=== PATIENT | female | born 1935 | race Caucasian/White ===

== ENCOUNTER 2018-08-31 13:22 | Inpatient (IN) | payer MEDICARE, MEDICAID ==
[2018-08-31] MEDS ORDERED: Sodium Chloride 0.9% 1,000 ML IV STA (15:45)
--- NOTE | 2018-08-31 16:15 | ED PDOC ---
HPI: Dental Pain/Injury Time Seen by Provider: 08/31/18 13:52 Chief Complaint (Nursing): Dental Pain Chief Complaint (Provider): Jaw Pain and Swelling History Per: Patient History/Exam Limitations: no limitations Onset/Duration Of Symptoms: Days Current Symptoms Are (Timing): Still Present Quality: "Pain" Additional Complaint(s): 83 year old female with PMHx of diabetes and HTN presents to the ER for an evaluation of right lower jaw swelling and pain onset yesterday morning. Patient has a history of sialadenitis and feels she has similar symptoms now. She took Tylenol at 1pm without any relief. Patient denies any difficulty swallowing. PMD: Dr. Leggett Past Medical History Reviewed: Historical Data, Nursing Documentation, Vital Signs Vital Signs: Last Vital Signs Temp 100.1 F H 08/31/18 13:36 Pulse 112 H 08/31/18 13:36 Resp 16 08/31/18 13:36 BP 167/84 H 08/31/18 13:36 Pulse Ox 93 L 08/31/18 13:36 - Medical History PMH: Asthma, Diabetes (type II), HTN, Hypercholesterolemia (noncompliant w/meds) Denies: Chronic Kidney Disease - Surgical History Surgical History: Tonsillectomy - Family History Family History: States: Unknown Family Hx - Social History Current smoker - smoking cessation education provided: No Alcohol: None Drugs: Denies - Home Medications Home Medications: Ambulatory Orders Medication Instructions Recorded Albuterol HFA [Ventolin HFA 90 90 mcg INH PRN PRN 10/21/14 mcg/actuation (8 g)] MetFORMIN ER [Glucophage XR] 1,500 mg PO DAILY 03/05/16 Lisinopril [Zestril] 20 mg PO DAILY #0 tab 03/06/16 - Allergies Allergies/Adverse Reactions: Allergies Allergy/AdvReac Type Severity Reaction Status Date / Time codeine Allergy RASH Verified 01/29/16 13:45 Review of Systems ROS Statement: Except As Marked, All Systems Reviewed And Found Negative Constitutional: Negative for: Fever ENT: Positive for: Mouth Pain, Mouth Swelling. Negative for: Throat Swelling Respiratory: Negative for: Cough Physical Exam - Reviewed Nursing Documentation Reviewed: Yes Vital Signs Reviewed: Yes - Physical Exam Appears: Positive for: In Acute Distress Head Exam: Positive for: ATRAUMATIC, NORMAL INSPECTION, NORMOCEPHALIC Skin: Positive for: Normal Color, Warm, Dry. Negative for: Rash Eye Exam: Positive for: Normal appearance ENT: Positive for: Pharynx Is (clear), Other (no swelling, speaking full sentences). Negative for: Normal ENT Inspection (edema on right external jaws and right lower gingiva) Cardiovascular/Chest: Positive for: Regular Rate, Rhythm. Negative for: Murmur Respiratory: Positive for: Normal Breath Sounds. Negative for: Decreased Breath Sounds, Wheezing, Respiratory Distress Neurologic/Psych: Positive for: Alert, Oriented (x3). Negative for: Motor/Sensory Deficits - Laboratory Results Result Diagrams: 08/31/18 16:28 08/31/18 16:28 - ECG O2 Sat by Pulse Oximetry: 93 (RA) Pulse Ox Interpretation: Normal Medical Decision Making Medical Decision Making: Time: 153 Initial Plan: --VBG Shock --Neck Soft Tissue w/ Contrast CT --CMP --CBC w/ Differential --PTT --Prothrombin Time --Normal Saline 1000mls/hr --Blood culture --Glucose, Blood, POC --Reevaluation Accession No. : [id number] Patient Name / ID : FELA Ruiz / [id number] Exam Date : 08/31/2018 17:32:19 ( Approved ) Study Comment : Sex / Age : F / 83Y Creator : Sanchez Quinones MD Dictator : Sanchez Quinones MD Documentation Clerk : Supplier Quality Engineer : Sanchez Quinones MD Approver2 : Report Date : 08/31/2018 18:28:44 My Comment : Date of service: 08/31/2018 PROCEDURE: CT NECK WITH CONTRAST HISTORY: Edema R gingiva, h/o sialoadenitis, fever COMPARISON: 10/21/2014 TECHNIQUE: CT of the neck with intravenous contrast. Coronal and sagittal reformats generated. Intravenous contrast dose: 90 cc Omnipaque 300 Radiation dose: Total exam DLP = 316.47 mGy-cm. This CT exam was performed using one or more of the following dose reduction techniques: Automated exposure control, adjustment of the mA and/or kV according to patient size, and/or use of iterative reconstruction technique. FINDINGS: NASOPHARYNX: Unremarkable. SUPRAHYOID NECK: The dilated duct, submandibular gland on the right are inseparable from the floor of the mouth, displacing intrinsic tongue musculature to the left. The mass is inseparable from the floor of the mouth. This orpharyngeal masseffacing the vallecular, piriform sinus region. INFRAHYOID NECK: Unremarkable larynx, hypopharynx, and supraglottic space. Vocal cords intact. MASS: None. GLANDS: 5 mm stone identified in [place]'s duct. An additional, smaller more proximal stone measuring 3 mm identified. Duct is dilated in its entirety, maximum diameter 8 mm. Associated with the dilated duct or multiple stones within the markedly enlarged right parotid gland. The right submandibular gland measures 4.2 x 3.1 x 4.9 cm. LYMPH NODES: Stable lymphadenopathy on the right adjacent to the mandible. CERVICAL SPINE: No fracture or focal lesion. VASCULAR STRUCTURES: Unremarkable. OTHER FINDINGS: None. IMPRESSION: Two stones identified in Sarah's duct producing distal dilatation, the entire duct is dilated. Associated multiple calculi identified within markedly enlarged right submandibular gland. Mass in the floor of the mouth on the right impressing upon the oropharynx, vallecula and piriform sinus. This mass measures 2.4 x 2.6 cm. Submandibular lymphadenopathy stable compared prior study 10/21/2014. 18:[address] Nielson, recommends Zosyn and Decadron 10 mg, will consult. Scribe Attestation: Documented by Sobeida Domingo, acting as a scribe for Kassidy Novoa MD Provider Scribe Attestation: All medical record entries made by the Scribe were at my direction and personally dictated by me. I have reviewed the chart and agree that the record accurately reflects my personal performance of the history, physical exam, medical decision making, and the department course for this patient. I have also personally directed, reviewed, and agree with the discharge instructions and disposition. Disposition - Clinical Impression Clinical Impression: Sialoadenitis, Mass of floor of mouth - Patient ED Disposition Is Patient to be Admitted: Yes - Disposition Disposition Time: 19:10 Condition: STABLE Forms: Dealised (Luxembourgish) - Pt Status Changed To: Hospital Disposition Of: Observation - POA Present On Arrival: None
[2018-08-31 16:50] LABS: BLOOD UREA NITROGEN 7 mg/dl (7-17); CALCIUM 9.4 mg/dL (8.4-10.2); GFR NON-AFRICAN AMERICAN > 60
[2018-08-31 16:56] LABS: VENOUS BLOOD GAS BASE EXCESS 7.5 mmol/L (0.0-2.0); VENOUS BLOOD GAS PCO2 47 mmHg (40-60); VENOUS BLOOD GAS PO2 34 mm/Hg (30-55); VENOUS BLOOD PH 7.45 (7.32-7.43)
[2018-08-31 17:01] LABS: BASO % 0.3 % (0.0-2.0); EOS % 0.4 % (0.0-4.0); HEMOGLOBIN 13.9 g/dL (12.0-16.0); LYMPH # 0.8 K/uL (1.0-4.3); LYMPH % 8.3 % (20.0-40.0); MEAN CELL VOLUME 85.9 fl (81.0-99.0); MEAN CORPUSCULAR HEMOGLOBIN 27.4 pg (27.0-31.0); MEAN CORPUSCULAR HGB CONC 31.9 g/dL (33.0-37.0); MEAN PLATELET VOLUME 8.7 fl (7.2-11.7); MONO # 0.4 K/uL (0.0-0.8); MONO % 4.5 % (0.0-10.0); NEUT # 8.5 K/uL (1.8-7.0); NEUT % 86.5 % (50.0-75.0); NRBC % 0.1 % (0.0-0.0); PLATELET COUNT 227 K/uL (130-400); RBC 5.09 Mil/uL (3.80-5.20); RED CELL DISTRIBUTION WIDTH 15.1 % (11.5-14.5); WHITE BLOOD COUNT 9.8 K/uL (4.8-10.8)
[2018-08-31 17:11] LABS: ALBUMIN 4.2 g/dL (3.5-5.0)
[2018-08-31 17:12] LABS: ALB/GLOB RATIO 0.8 (1.0-2.1); ALT/SGPT 19 U/L (9-52); AST/SGOT 32 U/L (14-36)
[2018-08-31] MEDS ORDERED: Sodium Chloride 0.9% 50 ML IV ONE (17:25)
[2018-08-31] MEDS ORDERED: Iohexol 300 100 ML IJ ONE (17:25)
--- NOTE | 2018-08-31 18:32 | CT ---
Date of service: 08/31/2018 PROCEDURE: CT NECK WITH CONTRAST HISTORY: Edema R gingiva, h/o sialoadenitis, fever COMPARISON: 10/21/2014 TECHNIQUE: CT of the neck with intravenous contrast. Coronal and sagittal reformats generated. Intravenous contrast dose: 90 cc Omnipaque 300 Radiation dose: Total exam DLP = 316.47 mGy-cm. This CT exam was performed using one or more of the following dose reduction techniques: Automated exposure control, adjustment of the mA and/or kV according to patient size, and/or use of iterative reconstruction technique. FINDINGS: NASOPHARYNX: Unremarkable. SUPRAHYOID NECK: The dilated duct, submandibular gland on the right are inseparable from the floor of the mouth, displacing intrinsic tongue musculature to the left. The mass is inseparable from the floor of the mouth. This orpharyngeal masseffacing the vallecular, piriform sinus region. INFRAHYOID NECK: Unremarkable larynx, hypopharynx, and supraglottic space. Vocal cords intact. MASS: None. GLANDS: 5 mm stone identified in [place]'s duct. An additional, smaller more proximal stone measuring 3 mm identified. Duct is dilated in its entirety, maximum diameter 8 mm. Associated with the dilated duct or multiple stones within the markedly enlarged right parotid gland. The right submandibular gland measures 4.2 x 3.1 x 4.9 cm. LYMPH NODES: Stable lymphadenopathy on the right adjacent to the mandible. CERVICAL SPINE: No fracture or focal lesion. VASCULAR STRUCTURES: Unremarkable. OTHER FINDINGS: None. IMPRESSION: Two stones identified in Sarah's duct producing distal dilatation, the entire duct is dilated. Associated multiple calculi identified within markedly enlarged right submandibular gland. Mass in the floor of the mouth on the right impressing upon the oropharynx, vallecula and piriform sinus. This mass measures 2.4 x 2.6 cm. Submandibular lymphadenopathy stable compared prior study 10/21/2014.
[2018-08-31 18:42] LABS: INR 1.2; PROTHROMBIN TIME 13.3 Seconds (9.8-13.1)
[2018-08-31 18:45] LABS: PARTIAL THROMBOPLASTIN TIME 30.7 Seconds (25.6-37.1)
[2018-08-31 18:51] LABS: BANDS 1 % (0-2); EOSINOPHIL 1 % (0-7); LYMPHOCYTE 9 % (20-50); MONOCYTE 4 % (0-10); NEUTROPHIL 85 % (42-75); TOTAL CELLS COUNTED 100
[2018-08-31 18:52] LABS: ANISOCYTOSIS SLIGHT; PLATELET ESTIMATE NORMAL (NORMAL)
[2018-08-31] MEDS ORDERED: Piperacillin/Tazobact 4.5 GM in Sodium Chloride 0.9% 100 ML IVPB STA (18:52)
[2018-08-31] MEDS ORDERED: Dexamethasone 10 MG in Sodium Chloride 0.9% 50 ML IV STA (18:53)
[2018-08-31 18:54] LABS: OVALOCYTES SLIGHT
[2018-09-01 06:59] LABS: HEMOGLOBIN 11.9 g/dL (12.0-16.0); MEAN CELL VOLUME 84.2 fl (81.0-99.0); MEAN CORPUSCULAR HEMOGLOBIN 26.9 pg (27.0-31.0); MEAN CORPUSCULAR HGB CONC 31.9 g/dL (33.0-37.0); RBC 4.42 Mil/uL (3.80-5.20); RED CELL DISTRIBUTION WIDTH 15.1 % (11.5-14.5); WHITE BLOOD COUNT 11.1 K/uL (4.8-10.8)
[2018-09-01 07:30] LABS: ALB/GLOB RATIO 0.9 (1.0-2.1); ALBUMIN 3.7 g/dL (3.5-5.0); ALT/SGPT 11 U/L (9-52); AST/SGOT 19 U/L (14-36); BLOOD UREA NITROGEN 9 mg/dl (7-17); CALCIUM 8.7 mg/dL (8.4-10.2); GFR NON-AFRICAN AMERICAN > 60
[2018-09-01] MEDS: Cholecalciferol 400 Intl Units Tab PO SCH (08:22)
[2018-09-01] MEDS: Insulin Regular 100 units/ml SC SCH ×3 (08:22→21:33)
--- NOTE | 2018-09-01 08:44 | CARD ---
APPROVED REPORT Date of service: 08/31/2018 EKG Measurement Heart [id number] <Conclusion> Sinus tachycardia Possible Left atrial enlargement Nonspecific T wave abnormality Abnormal ECG
[2018-09-01] MEDS: Piperacillin/Tazobact 3.375 GM in Sodium Chloride 0.9% 100 ML IVPB SCH ×2 (10:00→17:11)
--- NOTE | 2018-09-01 10:35 | RAD ---
Date of service: 08/31/2018 HISTORY: Sialoadenitis COMPARISON: No prior. TECHNIQUE: Chest PA and lateral FINDINGS: LUNGS: No active pulmonary disease. PLEURA: No significant pleural effusion identified. No pneumothorax apparent. CARDIOVASCULAR: No aortic atherosclerotic calcification present. Normal cardiac size. No pulmonary vascular congestion. OSSEOUS STRUCTURES: No significant abnormalities. VISUALIZED UPPER ABDOMEN: Normal. OTHER FINDINGS: None. IMPRESSION: No active disease.
--- NOTE | 2018-09-01 19:24 | CON ---
DATE: 09/01/2018 REQUESTING PHYSICIAN: Lionel Jim M.D. REASON FOR CONSULTATION: Sialadenitis on the right. HISTORY: This is an 83-year-old female who presents to the emergency room with a 3-day history of right neck edema and pain. It is constant, moderate in intensity, with some dysphagia. No shortness of breath, no hoarseness. The dysphagia is [id number] in intensity on the right side. PAST MEDICAL HISTORY: As noted in the chart by me. MEDICATIONS: As noted in the chart by me. ALLERGIES: NOTED IN THE CHART BY ME. PHYSICAL EXAMINATION: HEENT: Head: Atraumatic and normocephalic. Face: Good facial movements bilaterally. External nose and ears: No masses. No lesions. No erythema. No edema. Internal nose: Deviated septum. No masses. No lesions. No erythema. No edema. Oral cavity and oropharynx: There is some firmness on the floor of mouth on the right with the submandibular duct being swollen with some pain in that area. Lips and gums: No masses. No lesions. No erythema. No edema. CONSTITUTIONAL: Well fed, well nourished. COMMUNICATION: Communicates well and appropriately. NECK: Supple. There is edema over the right submandibular gland with pain. Lymph nodes: No lymphadenopathy of the neck. Thyroid: No thyromegaly. No goiter. CAT scan was reviewed by me. It showed stones in the submandibular gland on the right as well as one in the distal end of the submandibular duct with edema of the submandibular gland. ASSESSMENT: 1. Sialadenitis. 2. Deviated septum. 3. Submandibular gland duct stones. PLAN: Continue IV antibiotics. Consider more steroids to take down the swelling. Once the swelling is down, recommend transfer to [facility] where the patient can have this submandibular gland removed. Miquel Nielson MD
--- NOTE | 2018-09-01 20:25 | CP.PCM.HP ---
History of Present Illness - History of Present Illness History of Present Illness: 83 year old female with PMHx of diabetes and HTN presented to the ER due to right lower jaw swelling and pain x 2 days. Patient was found to have Sialoadenitis and Mass of floor of mouth. ENT was consulted in ED. recommended zosyn and decadron. patient was seen and examined at bedside. states swelling continues to be present though improved. pain improved. no other complaints offered at this time. Present on Admission - Present on Admission Any Indicators Present on Admission: Yes History of Uncontrolled Diabetes: Yes Review of Systems - Review of Systems All systems: reviewed and no additional remarkable complaints except (mentioned above) Past Patient History - Infectious Disease Hx of Infectious Diseases: None - Past Medical History & Family History Past Medical History?: Yes - Past Social History Smoking Status: Never Smoked - CARDIAC Hx Cardiac Disorders: Yes Hx Hypertension: Yes - PULMONARY Hx Respiratory Disorders: Yes - NEUROLOGICAL Hx Neurological Disorder: No - HEENT Hx HEENT Problems: No - RENAL Hx Chronic Kidney Disease: No - ENDOCRINE/METABOLIC Hx Endocrine Disorders: Yes Hx Diabetes Mellitus Type 2: Yes - HEMATOLOGICAL/ONCOLOGICAL Hx Blood Disorders: No Hx AIDS: No Hx Human Immunodeficiency Virus (HIV): No - INTEGUMENTARY Hx Dermatological Problems: No - MUSCULOSKELETAL/RHEUMATOLOGICAL Hx Musculoskeletal Disorders: No Hx Falls: No - GASTROINTESTINAL Hx Gastrointestinal Disorders: No - GENITOURINARY/GYNECOLOGICAL Hx Genitourinary Disorders: No - PSYCHIATRIC Hx Psychophysiologic Disorder: No Hx Substance Use: No - SURGICAL HISTORY Hx Surgeries: Yes Hx Tonsillectomy: Yes - ANESTHESIA Hx Anesthesia: Yes Hx Anesthesia Reactions: No Meds Allergies/Adverse Reactions: Allergies Allergy/AdvReac Type Severity Reaction Status Date / Time codeine Allergy RASH Verified 01/29/16 13:45 Physical Exam - Constitutional Appears: Non-toxic, No Acute Distress - Head Exam Head Exam: NORMAL INSPECTION - Eye Exam Eye Exam: Normal appearance - ENT Exam Additional comments: right gingival swelling - Neck Exam Additional comments: submandibular swelling noted right sided - Respiratory Exam Respiratory Exam: Clear to Auscultation Bilateral, NORMAL BREATHING PATTERN - Cardiovascular Exam Cardiovascular Exam: +S1, +S2 - GI/Abdominal Exam GI & Abdominal Exam: Normal Bowel Sounds, Soft - Extremities Exam Extremities exam: Positive for: normal inspection - Back Exam Back exam: NORMAL INSPECTION - Neurological Exam Neurological exam: Alert, Oriented x3 - Psychiatric Exam Psychiatric exam: Normal Affect, Normal Mood - Skin Skin Exam: Normal Color, Warm Results - Vital Signs Recent Vital Signs: Last Vital Signs Temp 98.7 F 09/01/18 20:04 Pulse 100 H 09/01/18 20:04 Resp 18 09/01/18 20:04 BP 110/69 09/01/18 20:04 Pulse Ox 96 09/01/18 20:04 - Labs Result Diagrams: 09/01/18 05:40 09/01/18 05:40 Labs: Laboratory Results - last 24 hr 09/01/18 09/01/18 09/01/18 05:27 05:40 05:40 WBC 11.1 H RBC 4.42 Hgb 11.9 L D Hct 37.2 MCV 84.2 MCH 26.9 L MCHC 31.9 L RDW 15.1 H Plt Count 199 Sodium 140 Potassium 4.1 Chloride 107 Carbon Dioxide 26 Anion Gap 11 BUN 9 Creatinine 0.5 L Est GFR ( Amer) > 60 Est GFR (Non-Af Amer) > 60 POC Glucose (mg/dL) 224 H Random Glucose 215 H Calcium 8.7 Total Bilirubin 0.6 AST 19 ALT 11 Alkaline Phosphatase 83 Total Protein 7.8 Albumin 3.7 Globulin 4.1 H Albumin/Globulin Ratio 0.9 L 09/01/18 09/01/18 11:36 16:24 WBC RBC Hgb Hct MCV MCH MCHC RDW Plt Count Sodium Potassium Chloride Carbon Dioxide Anion Gap BUN Creatinine Est GFR ( Amer) Est GFR (Non-Af Amer) POC Glucose (mg/dL) 253 H 167 H Random Glucose Calcium Total Bilirubin AST ALT Alkaline Phosphatase Total Protein Albumin Globulin Albumin/Globulin Ratio Assessment & Plan - Assessment and Plan (Free Text) Assessment: 83 year old female with PMHx of diabetes and HTN admitted due to right Sialoadenitis and Mass of floor of mouth. plan ent consulted, appreciate recommendations c/w zosyn monitor swelling, consider c/w decadron monitor BS due to uncontrolled DM monitor vitals rest of plan as ordered
[2018-09-02] MEDS: Piperacillin/Tazobact 3.375 GM in Sodium Chloride 0.9% 100 ML IVPB SCH ×3 (01:45→17:11)
[2018-09-02 08:08] LABS: HEMOGLOBIN 11.6 g/dL (12.0-16.0); MEAN CELL VOLUME 84.1 fl (81.0-99.0); MEAN CORPUSCULAR HEMOGLOBIN 27.3 pg (27.0-31.0); MEAN CORPUSCULAR HGB CONC 32.4 g/dL (33.0-37.0); RBC 4.24 Mil/uL (3.80-5.20); WHITE BLOOD COUNT 9.9 K/uL (4.8-10.8)
[2018-09-02] MEDS: Insulin Regular 100 units/ml SC SCH ×4 (08:45→23:16)
[2018-09-02 09:16] LABS: ALB/GLOB RATIO 0.8 (1.0-2.1); ALBUMIN 3.5 g/dL (3.5-5.0); ALT/SGPT 20 U/L (9-52); AST/SGOT 24 U/L (14-36); BLOOD UREA NITROGEN 10 mg/dl (7-17); CALCIUM 8.7 mg/dL (8.4-10.2); GFR NON-AFRICAN AMERICAN > 60
[2018-09-02] MEDS: Cholecalciferol 400 Intl Units Tab PO SCH (10:55)
[2018-09-02] MEDS ORDERED: Potassium Chloride 20 mEq ER Tab PO ONE (11:06)
--- NOTE | 2018-09-02 14:19 | CP.PCM.CON ---
History of Present Illness - History of Present Illness History of Present Illness: this 83-year-old hypertensive diabetic -Faroese female, came into the emergency room complaining of an abrupt and painful swelling of her right submandibular salivary gland. The pat arlen has had similar episodes couple of years back for which she was also hospitalized. She is not a smoker and has never suffered a myocardial infarction or congestive cardiac failure. She had a brief syncopal episode in February 2016 during which she has undergone telemetry monitoring as well as an echocardiogram and Holter recording. At that time no cardiac issue was detected. Her Holter recording showed evidence of a 4 beat burst of atrial tachycardia. The patient has significant restriction on her physical activities because she has had osteoarthritic knees and unsteady gait and uses a cane to walk. Using a grocery shopping cart she is able to ambulate fairly freely in the grocery store and has never experienced any effort related chest pain or symptoms of congestive cardiac failure. Physical examination shows an elderly -Faroese female who is sitting up comfortably in a chair and can carry on a conversation. Her respiratory rate was 16 breaths per minute and her heart rate was 68 bpm regular and her blood pressure was 160/100 mmHg.her jugular venous pressure was not elevated and there was no edema over lower extremities. The pedal pulses were well felt. There were no carotid bruits. the apex was not palpable. The first and second heart sounds were normal. There was no murmur or gallop. There were no rales. Her abdomen was soft liver and spleen are not palpable. There was a tender painful lump in the right submandibular area. Her electrocardiogram showed sinus rhythm with nonspecific ST-T changes. There were no Q waves on her electro-cardial gram. Review off her electrocardiograms going back to February 2016 showed a similar pattern. The echocardiogram done at that time showed preserved left ventricle systolic function with a depressed diastolic compliance. A Holter recording showed occasional APCs along with a 4 beat burst of supraventricular tachycardia. Review off her halter recording over last 24 hours also shows a burst of atrial tachycardia at approximately 162 bpm of 4 beats only with aberrant intoventricular conduction. her labs show normal BUN/creatinine with a serum potassium level of 3.4 milliequivalents per literrest of her labs were noted. Impression: acute enlargement of her right submandibular saliva gland, probably inflammatory in nature. 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 If she continues to display persistently elevated blood pressure reading FUENTES inhibitor patient should be reintroduced. At this juncture she is stable from cardiovascular point of view to proceed with any surgical intervention the ENT surgeon recommends. Past Patient History - Infectious Disease Hx of Infectious Diseases: None - Past Medical History & Family History Past Medical History?: Yes - Past Social History Smoking Status: Never Smoked - CARDIAC Hx Cardiac Disorders: Yes Hx Hypertension: Yes - PULMONARY Hx Respiratory Disorders: Yes - NEUROLOGICAL Hx Neurological Disorder: No - HEENT Hx HEENT Problems: No - RENAL Hx Chronic Kidney Disease: No - ENDOCRINE/METABOLIC Hx Endocrine Disorders: Yes Hx Diabetes Mellitus Type 2: Yes - HEMATOLOGICAL/ONCOLOGICAL Hx Blood Disorders: No Hx AIDS: No Hx Human Immunodeficiency Virus (HIV): No - INTEGUMENTARY Hx Dermatological Problems: No - MUSCULOSKELETAL/RHEUMATOLOGICAL Hx Musculoskeletal Disorders: No Hx Falls: No - GASTROINTESTINAL Hx Gastrointestinal Disorders: No - GENITOURINARY/GYNECOLOGICAL Hx Genitourinary Disorders: No - PSYCHIATRIC Hx Psychophysiologic Disorder: No Hx Substance Use: No - SURGICAL HISTORY Hx Surgeries: Yes Hx Tonsillectomy: Yes - ANESTHESIA Hx Anesthesia: Yes Hx Anesthesia Reactions: No Meds Allergies/Adverse Reactions: Allergies Allergy/AdvReac Type Severity Reaction Status Date / Time codeine Allergy RASH Verified 01/29/16 13:45 - Medications Medications: Current Medications Hydrochlorothiazide (Hydrodiuril) 25 mg PO DAILY [facility] Last Admin: 09/02/18 10:55 Dose: 25 mg Piperacillin Sod/Tazobactam (Sod 3.375 gm/ Sodium Chloride) 100 mls @ 100 mls/hr IVPB Q8H [facility]; Protocol Last Admin: 09/02/18 10:55 Dose: 100 mls/hr Ibuprofen (Motrin Tab) 600 mg PO Q8 PRN PRN Reason: Pain, moderate (4-7) Last Admin: 09/02/18 13:02 Dose: 600 mg Insulin Human Regular (Humulin R) 0 units SC ACHS [facility]; Protocol Last Admin: 09/02/18 12:54 Dose: 1 unit Metformin HCl (Glucophage) 500 mg PO BID [facility] Last Admin: 09/02/18 10:54 Dose: 500 mg Vitamin D (Vitamin D 400 Intl Units Tab) 400 intlu PO DAILY [facility] Last Admin: 09/02/18 10:55 Dose: 400 intlu Results - Vital Signs Recent Vital Signs: Last Vital Signs Temp 98.6 F 09/02/18 12:46 Pulse 95 H 09/02/18 12:46 Resp 20 09/02/18 12:46 BP 152/79 H 09/02/18 12:46 Pulse Ox 96 09/02/18 12:46 - Labs Result Diagrams: 09/02/18 06:00 09/02/18 04:00 Labs: Laboratory Results - last 24 hr 09/01/18 09/01/18 09/02/18 16:24 21:23 04:00 WBC RBC Hgb Hct MCV MCH MCHC RDW Plt Count Sodium 140 Potassium 3.3 L Chloride 103 Carbon Dioxide 31 H Anion Gap 9 L BUN 10 Creatinine 0.6 L Est GFR ( Amer) > 60 Est GFR (Non-Af Amer) > 60 POC Glucose (mg/dL) 167 H 195 H Random Glucose 152 H Calcium 8.7 Total Bilirubin 0.5 AST 24 ALT 20 Alkaline Phosphatase 79 Total Protein 7.6 Albumin 3.5 Globulin 4.1 H Albumin/Globulin Ratio 0.8 L 09/02/18 09/02/18 09/02/18 06:00 06:05 11:52 WBC 9.9 RBC 4.24 Hgb 11.6 L Hct 35.7 MCV 84.1 MCH 27.3 MCHC 32.4 L RDW 15.0 H Plt Count 245 Sodium Potassium Chloride Carbon Dioxide Anion Gap BUN Creatinine Est GFR ( Amer) Est GFR (Non-Af Amer) POC Glucose (mg/dL) 171 H 196 H Random Glucose Calcium Total Bilirubin AST ALT Alkaline Phosphatase Total Protein Albumin Globulin Albumin/Globulin Ratio
[2018-09-02 17:28] VITALS: BMI 41.5
--- NOTE | 2018-09-02 18:42 | CP.PCM.PN ---
Subjective - Date & Time of Evaluation Date of Evaluation: 09/02/18 Time of Evaluation: 11:00 - Subjective Subjective: patient seen and examined at bedside. no acute events overnight though noted run of PVCs, asymptomatic. swelling of neck still present. no fever/chills. tolerating PO liquid diet well. Objective - Vital Signs/Intake and Output Vital Signs (last 24 hours): Temp Pulse Resp BP Pulse Ox 98.3 F 96 H 18 128/79 95 09/02/18 16:32 09/02/18 16:32 09/02/18 16:32 09/02/18 16:32 09/02/18 16:32 - Medications Medications: Current Medications Hydrochlorothiazide (Hydrodiuril) 25 mg PO DAILY [facility] Last Admin: 09/02/18 10:55 Dose: 25 mg Piperacillin Sod/Tazobactam (Sod 3.375 gm/ Sodium Chloride) 100 mls @ 100 m ls/hr IVPB Q8H [facility]; Protocol Last Admin: 09/02/18 17:11 Dose: 100 mls/hr Ibuprofen (Motrin Tab) 600 mg PO Q8 PRN PRN Reason: Pain, moderate (4-7) Last Admin: 09/02/18 13:02 Dose: 600 mg Insulin Human Regular (Humulin R) 0 units SC ACHS [facility]; Protocol Last Admin: 09/02/18 17:11 Dose: 2 unit Metformin HCl (Glucophage) 500 mg PO BID [facility] Last Admin: 09/02/18 17:10 Dose: 500 mg Vitamin D (Vitamin D 400 Intl Units Tab) 400 intlu PO DAILY [facility] Last Admin: 09/02/18 10:55 Dose: 400 intlu - Labs Labs: 09/02/18 06:00 09/02/18 04:00 PT 13.3 Seconds (9.8-13.1) H 08/31/18 18:28 INR 1.2 08/31/18 18:28 APTT 30.7 Seconds (25.6-37.1) 08/31/18 18:28 - Head Exam Head Exam: NORMAL INSPECTION - Eye Exam Eye Exam: Normal appearance - ENT Exam Additional comments: right neck swelling - Respiratory Exam Respiratory Exam: NORMAL BREATHING PATTERN - Cardiovascular Exam Cardiovascular Exam: +S1, +S2 - GI/Abdominal Exam GI & Abdominal Exam: Soft, Normal Bowel Sounds - Neurological Exam Neurological Exam: Alert, Awake - Psychiatric Exam Psychiatric exam: Normal Affect, Normal Mood - Skin Skin Exam: Normal Color, Warm Assessment and Plan - Assessment and Plan (Free Text) Assessment: 83 year old female with PMHx of diabetes and HTN admitted due to right Sialoadenitis and Mass of floor of mouth. Run of PVCs, asymptomatic. plan ent consulted, appreciate recommendations, recommends transfer to [facility] c/w zosyn consult Dr. Duncan, cardiology for PVC's monitor swelling, c/w decadron monitor BS due to uncontrolled DM monitor vitals rest of plan as ordered
[2018-09-03] MEDS: Piperacillin/Tazobact 3.375 GM in Sodium Chloride 0.9% 100 ML IVPB SCH ×2 (03:07→09:01)
[2018-09-03 05:57] LABS: HEMOGLOBIN 12.6 g/dL (12.0-16.0); MEAN CORPUSCULAR HEMOGLOBIN 27.2 pg (27.0-31.0); MEAN CORPUSCULAR HGB CONC 32.3 g/dL (33.0-37.0); RBC 4.63 Mil/uL (3.80-5.20); WHITE BLOOD COUNT 7.5 K/uL (4.8-10.8)
[2018-09-03 06:24] LABS: ALB/GLOB RATIO 0.8 (1.0-2.1); ALBUMIN 3.9 g/dL (3.5-5.0); ALT/SGPT 20 U/L (9-52); AST/SGOT 20 U/L (14-36); BLOOD UREA NITROGEN 7 mg/dl (7-17); CALCIUM 9.2 mg/dL (8.4-10.2); GFR NON-AFRICAN AMERICAN > 60
[2018-09-03] MEDS: Cholecalciferol 400 Intl Units Tab PO SCH (08:59)
[2018-09-03] MEDS: Insulin Regular 100 units/ml SC SCH ×3 (08:59→17:11)
--- NOTE | 2018-09-03 09:34 | CP.PCM.PN ---
Subjective - Date & Time of Evaluation Date of Evaluation: 09/03/18 Time of Evaluation: 08:50 - Subjective Subjective: The patient was found resting comfortably in bed and denied any palpitations or sudden shortness of breath. Her telemetry shows steady sinus rhythm interrupted by rare isolated premature atrial beats. Her heart rate was 74 bpm and regular and her blood pressure was 120/74 mmHg. Her jugular venous pressure was not elevated and there was no edema over lower extremities. JVP was not elevated. There were no rales and there was no gallop. The patient is stable from cardiovascular point of view. Objective - Vital Signs/Intake and Output Vital Signs (last 24 hours): Temp Pulse Resp BP Pulse Ox 98.4 F 82 18 160/79 H 95 09/03/18 08:29 09/03/18 08:29 09/03/18 08:29 09/03/18 08:29 09/03/18 08:29 - Medications Medications: Current Medications Hydrochlorothiazide (Hydrodiuril) 25 mg PO DAILY [facility] Last Admin: 09/03/18 08:59 Dose: 25 mg Piperacillin Sod/Tazobactam (Sod 3.375 gm/ Sodium Chloride) 100 mls @ 100 mls/hr IVPB Q8H [facility]; Protocol Last Admin: 09/03/18 09:01 Dose: 100 mls/hr Ibuprofen (Motrin Tab) 600 mg PO Q8 PRN PRN Reason: Pain, moderate (4-7) Last Admin: 09/03/18 09:17 Dose: 600 mg Insulin Human Regular (Humulin R) 0 units SC ACHS [facility]; Protocol Last Admin: 09/03/18 08:59 Dose: 2 unit Metformin HCl (Glucophage) 500 mg PO BID [facility] Last Admin: 09/03/18 08:59 Dose: 500 mg Vitamin D (Vitamin D 400 Intl Units Tab) 400 intlu PO DAILY [facility] Last Admin: 09/03/18 08:59 Dose: 400 intlu - Labs Labs: 09/03/18 04:20 09/03/18 04:20 PT 13.3 Seconds (9.8-13.1) H 08/31/18 18:28 INR 1.2 08/31/18 18:28 APTT 30.7 Seconds (25.6-37.1) 08/31/18 18:28
--- NOTE | 2018-09-03 14:07 | CP.PCM.PN ---
Subjective - Date & Time of Evaluation Date of Evaluation: 09/03/18 Time of Evaluation: 10:00 - Subjective Subjective: patient seen and examined at bedside. no acute events overnight. swelling of neck still present. no fever/chills. tolerating PO liquid diet well. Seen by cardiology. Objective - Vital Signs/Intake and Output Vital Signs (last 24 hours): Temp Pulse Resp BP Pulse Ox 98.4 F 78 18 103/72 100 09/03/18 11:56 09/03/18 11:56 09/03/18 11:56 09/03/18 11:56 09/03/18 11:56 - Medications Medications: Current Medications Dexamethasone (Decadron) 10 mg PO ONCE ONE Stop: 09/03/18 14:06 Hydrochlorothiazide (Hydrodiuril) 25 mg PO DAILY [facility] Last Admin: 09/03/18 08:59 Dose: 25 mg Piperacillin Sod/Tazobactam (Sod 3.375 gm/ Sodium Chloride) 100 mls @ 100 mls/hr IVPB Q8H [facility]; Protocol Last Admin: 09/03/18 09:01 Dose: 100 mls/hr Ibuprofen (Motrin Tab) 600 mg PO Q8 PRN PRN Reason: Pain, moderate (4-7) Last Admin: 09/03/18 09:17 Dose: 600 mg Insulin Human Regular (Humulin R) 0 units SC ACHS [facility]; Protocol Last Admin: 09/03/18 13:18 Dose: 1 unit Metformin HCl (Glucophage) 500 mg PO BID [facility] Last Admin: 09/03/18 08:59 Dose: 500 mg Vitamin D (Vitamin D 400 Intl Units Tab) 400 intlu PO DAILY [facility] Last Admin: 09/03/18 08:59 Dose: 400 intlu - Labs Labs: 09/03/18 04:20 09/03/18 04:20 PT 13.3 Seconds (9.8-13.1) H 08/31/18 18:28 INR 1.2 08/31/18 18:28 APTT 30.7 Seconds (25.6-37.1) 08/31/18 18:28 - Additional Findings Additional findings: - Head Exam Head Exam: NORMAL INSPECTION - Eye Exam Eye Exam: Normal appearance - ENT Exam Additional comments: right neck swelling - Respiratory Exam Respiratory Exam: NORMAL BREATHING PATTERN - Cardiovascular Exam Cardiovascular Exam: +S1, +S2 - GI/Abdominal Exam GI & Abdominal Exam: Soft, Normal Bowel Sounds - Neurological Exam Neurological Exam: Alert, Awake - Psychiatric Exam Psychiatric exam: Normal Affect, Normal Mood - Skin Skin Exam: Normal Color, Warm Assessment and Plan - Assessment and Plan (Free Text) Assessment: 83 year old female with PMHx of diabetes and HTN admitted due to right Sialoadenitis and Mass of floor of mouth. Run of PVCs, asymptomatic. plan ent consulted, appreciate recommendations, recommends transfer to [facility] c/w zosyn consult Dr. Duncan, cardiology for PVC's, appreciate recommendation monitor swelling, c/w decadron monitor BS due to uncontrolled DM rest of plan as ordered
[2018-09-03 16:01] VITALS: BP 151/78; PULSE 91; RESP 20; TEMP 98.5; O2SAT 95
== END 2018-09-03 19:20 | disposition home or self-care (01) | DRG 155 ==
LOC: H.ER 13:22 → H.ERHOLD 19:11 → H.TEL 21:38 → OBSVTOIN 09-02 11:06
PROVIDERS: ADMIT Family Medicine; ATTEND Family Medicine
DX: K11.20 Sialoadenitis, unspecified (principal); I47.1 Supraventricular tachycardia; K08.89 Other specified disorders of teeth and supporting structures; J34.2 Deviated nasal septum; E66.09 Other obesity due to excess calories; E11.9 Type 2 diabetes mellitus without complications; Z91.14 Patient's other noncompliance with medication regimen; I10 Essential (primary) hypertension; E78.00 Pure hypercholesterolemia, unspecified; I49.3 Ventricular premature depolarization; J45.909 Unspecified asthma, uncomplicated; R13.19 Other dysphagia; R59.1 Generalized enlarged lymph nodes; Z79.84 Long term (current) use of oral hypoglycemic drugs

== ENCOUNTER 2018-11-11 08:12 | Inpatient (IN) | payer MEDICARE, MEDICAID ==
[2018-11-11] MEDS ORDERED: Nitroglycerin 2% Ointment Foilpak UD TOP STA (08:24)
[2018-11-11] MEDS ORDERED: Albuterol-Ipratrop 3 mg / 0.5 (3 ml) UD IH STA ×2 (08:24→08:25)
--- NOTE | 2018-11-11 08:28 | ED PDOC ---
HPI: SOB/CHF/COPD Time Seen by Provider: 11/11/18 08:13 Chief Complaint (Nursing): Shortness Of Breath History Per: Patient Onset/Duration Of Symptoms: Days (2) Current Symptoms Are (Timing): Still Present Quality: Tightness Current Respiratory Medications: See Home Med List Severity: Moderate Associated Symptoms: Chest Pain, Ankle/Leg Swelling. denies: Fever, Productive Cough Additional Complaint(s): SOB, wheezing and chest tightness x 2 days. Scant non-productive cough. Denies fever. Chest tightness assoc with lower ext swelling. Mild improvement with home inhalers. Past Medical History Vital Signs: Last Vital Signs Temp 98.2 F 11/11/18 08:19 Pulse 113 H 11/11/18 08:19 Resp 25 H 11/11/18 08:19 BP Pulse Ox 95 11/11/18 08:19 - Medical History PMH: Asthma, Diabetes (type II), HTN, Hypercholesterolemia (noncompliant w/meds) Denies: HIV, Chronic Kidney Disease - Surgical History Surgical History: Tonsillectomy - Family History Family History: States: Unknown Family Hx - Home Medications Home Medications: Ambulatory Orders Medication Instructions Recorded Cholecalciferol (Vitamin D3) 400 unit PO DAILY 08/31/18 [Vitamin D3] Metformin HCl [Glucophage] 500 mg PO BID 08/31/18 hydroCHLOROthiazide [Hydrodiuril] 25 mg PO DAILY 08/31/18 Amoxicillin/Clavulanate [Augmentin 1 tab PO Q12 #20 tab 09/03/18 875 MG-125 MG] Ibuprofen [Motrin Tab] 600 mg PO Q8 PRN #30 tab 09/03/18 - Allergies Allergies/Adverse Reactions: Allergies Allergy/AdvReac Type Severity Reaction Status Date / Time codeine Allergy RASH Verified 01/29/16 13:45 Review of Systems ROS Statement: Except As Marked, All Systems Reviewed And Found Negative Constitutional: Negative for: Fever Respiratory: Positive for: Shortness of Breath, Wheezing Physical Exam - Reviewed Nursing Documentation Reviewed: Yes Vital Signs Reviewed: Yes - Physical Exam Appears: Positive for: Non-toxic, Uncomfortable Head Exam: Positive for: ATRAUMATIC, NORMAL INSPECTION, NORMOCEPHALIC Skin: Positive for: Normal Color, Warm, DRY Eye Exam: Positive for: EOMI, Normal appearance, PERRL ENT: Positive for: Normal ENT Inspection Neck: Positive for: Normal, Painless ROM Cardiovascular/Chest: Positive for: Regular Rate, Rhythm, Tachycardia Respiratory: Positive for: Wheezing, Respiratory Distress (Mild) Gastrointestinal/Abdominal: Positive for: Normal Exam, Soft Back: Positive for: Normal Inspection Extremity: Positive for: Normal ROM, Swelling (2+ pitting edema lower ext bilat.) Neurologic/Psych: Positive for: Alert, Oriented - Laboratory Results Result Diagrams: 11/11/18 08:38 11/11/18 08:38 - ECG O2 Sat by Pulse Oximetry: 95 Medical Decision Making Medical Decision Makin SOB wheezing, elevated BP Most likely asthma but also considering CHF with elevated BP and lower ext edema. Will tx with nebs, steroids, Nitro and lasix pending xrays. 0930 --CXR FINDINGS: LUNGS: Infiltrates identified at the right perihilar and bilateral basilar regions. Body habitus however contributes to density at the basilar lung zones. PLEURA: No significant pleural effusion identified, no pneumothorax apparent. CARDIOVASCULAR: Calcific atherosclerotic changes are seen related to the thoracic aorta. Cardiomegaly again identified with mild pulmonary vascular congestion present. OSSEOUS STRUCTURES: No significant abnormalities. VISUALIZED UPPER ABDOMEN: Normal. OTHER FINDINGS: None. IMPRESSION: Right perihilar and bilateral basilar infiltrates identified with mild pulmonary vascular congestion evident. Cardiomegaly stable. 1001 CXR read as infiltrate right side. Does not meet criteria for sepsis although lactate elevated at 2.8. Will tx with Vanco and Zosyn and repeat lactate in 3 hrs. Disposition - Clinical Impression Clinical Impression: Pneumonia, Chr obstructive pulmonary disease w/ acute lower respiratory infxn, Hypertension - Patient ED Disposition Is Patient to be Admitted: Yes - Disposition Disposition Time: 10:01 Condition: FAIR Forms: [employer] (Citizen Of [place]) - Pt Status Changed To: Hospital Disposition Of: Inpatient - Admit Certification Admit to Inpatient:: After my assessment, the patient will require hospitalization for at least two midnights. This is because of the severity of symptoms shown, intensity of services needed, and/or the medical risk in this patient being treated as an outpatient. - POA Present On Arrival: None
[2018-11-11] MEDS ORDERED: Nitroglycerin 2% Ointment Foilpak UD TOP ONE (08:33)
[2018-11-11] MEDS ORDERED: Albuterol-Ipratrop 3 mg / 0.5 (3 ml) UD ONE (08:33)
[2018-11-11 08:46] LABS: VENOUS BLOOD GAS BASE EXCESS 2.4 mmol/L (0.0-2.0); VENOUS BLOOD GAS PCO2 58 mmHg (40-60); VENOUS BLOOD GAS PO2 33 mm/Hg (30-55); VENOUS BLOOD PH 7.32 (7.32-7.43)
[2018-11-11 09:05] LABS: ALBUMIN 4.2 g/dL (3.5-5.0); ALT/SGPT 19 U/L (9-52); AST/SGOT 21 U/L (14-36); BLOOD UREA NITROGEN 10 mg/dl (7-17); CALCIUM 9.2 mg/dL (8.4-10.2); GFR NON-AFRICAN AMERICAN > 60
[2018-11-11 09:14] LABS: B-TYPE NATRIURETIC PEPTIDE 440 pg/ml (0-900)
[2018-11-11 09:32] LABS: BASO % 0.5 % (0.0-2.0); EOS # 0.1 K/uL (0.0-0.7); EOS % 0.9 % (0.0-4.0); HEMOGLOBIN 13.5 g/dL (12.0-16.0); LYMPH # 1.8 K/uL (1.0-4.3); LYMPH % 28.4 % (20.0-40.0); MEAN CELL VOLUME 84.4 fl (81.0-99.0); MONO # 0.5 K/uL (0.0-0.8); MONO % 7.9 % (0.0-10.0); NEUT # 3.9 K/uL (1.8-7.0); NEUT % 62.3 % (50.0-75.0); RED CELL DISTRIBUTION WIDTH 15.6 % (11.5-14.5); WHITE BLOOD COUNT 6.3 K/uL (4.8-10.8)
--- NOTE | 2018-11-11 09:34 | RAD ---
Date of service: 11/11/2018 HISTORY: cough COMPARISON: Chest radiographs 08/31/2018. FINDINGS: LUNGS: Infiltrates identified at the right perihilar and bilateral basilar regions. Body habitus however contributes to density at the basilar lung zones. PLEURA: No significant pleural effusion identified, no pneumothorax apparent. CARDIOVASCULAR: Calcific atherosclerotic changes are seen related to the thoracic aorta. Cardiomegaly again identified with mild pulmonary vascular congestion present. OSSEOUS STRUCTURES: No significant abnormalities. VISUALIZED UPPER ABDOMEN: Normal. OTHER FINDINGS: None. IMPRESSION: Right perihilar and bilateral basilar infiltrates identified with mild pulmonary vascular congestion evident. Cardiomegaly stable.
[2018-11-11] MEDS ORDERED: Piperacillin/Tazobact 3.375 GM in Sodium Chloride 0.9% 100 ML IVPB ONE (10:00)
[2018-11-11] MEDS ORDERED: Vancomycin 1 g Inj ONE (10:52)
[2018-11-11 14:08] VITALS: BMI 39.6
[2018-11-11] MEDS: Albuterol-Ipratrop 3 mg / 0.5 (3 ml) UD INH SCH ×2 (15:16→19:05)
[2018-11-11] MEDS: diltiaZEM 120 mg/24 Hours CD Cap PO SCH (18:00)
[2018-11-11] MEDS: Insulin Regular 100 units/ml SC SCH ×2 (18:01→21:33)
[2018-11-11] MEDS: Enoxaparin 40 mg Syringe SC SCH (18:05)
[2018-11-11] MEDS: Azithromycin 500 MG in Sodium Chloride 0.9% 250 ML IVPB SCH (18:09)
--- NOTE | 2018-11-11 22:32 | CARD ---
APPROVED REPORT Date of service: 11/11/2018 EKG Measurement Heart [id number] <Conclusion> Sinus tachycardia Nonspecific ST and T wave abnormality Abnormal ECG
--- NOTE | 2018-11-12 01:40 | CP.PCM.HP ---
History of Present Illness - History of Present Illness History of Present Illness: This is an 83 y/o female admitted for increasing SOB and dry cough. Took Ventolin HFA but to no avail. She was given treatment but to no avail hence sought ER eval where she was given nebulizer treatment but continued to have cough and SOB hence admitted. CXR showed infiltrate. Has a hx of DM 2 HTN asthma and hyperlipidemia Present on Admission - Present on Admission Any Indicators Present on Admission: No History of DVT/PE: No History of Uncontrolled Diabetes: Yes Urinary Catheter: No Decubitus Ulcer Present: No Review of Systems - Respiratory Respiratory: Cough, Dyspnea, Chest Congestion Past Patient History - Infectious Disease Hx of Infectious Diseases: None - Past Medical History & Family History Past Medical History?: Yes - Past Social History Smoking Status: Never Smoked - CARDIAC Hx Cardiac Disorders: Yes Hx Hypercholesterolemia: Yes (noncompliant w/meds) Hx Hypertension: Yes - PULMONARY Hx Respiratory Disorders: Yes Hx Asthma: Yes - NEUROLOGICAL Hx Neurological Disorder: No - HEENT Hx HEENT Problems: Yes Hx Cataracts: Yes - RENAL Hx Chronic Kidney Disease: No - ENDOCRINE/METABOLIC Hx Endocrine Disorders: Yes Hx Diabetes Mellitus Type 2: Yes - HEMATOLOGICAL/ONCOLOGICAL Hx Blood Disorders: No Hx AIDS: No Hx Human Immunodeficiency Virus (HIV): No - INTEGUMENTARY Hx Dermatological Problems: No - MUSCULOSKELETAL/RHEUMATOLOGICAL Hx Musculoskeletal Disorders: No Hx Falls: No - GASTROINTESTINAL Hx Gastrointestinal Disorders: No - GENITOURINARY/GYNECOLOGICAL Hx Genitourinary Disorders: No - PSYCHIATRIC Hx Psychophysiologic Disorder: No Hx Substance Use: No - SURGICAL HISTORY Hx Surgeries: Yes Hx Appendectomy: Yes Hx Tonsillectomy: Yes Other/Comment: Bilateral cataract 2010 - ANESTHESIA Hx Anesthesia: Yes Hx Anesthesia Reactions: No Hx Malignant Hyperthermia: No Has any member of the family had a problem w/ anesthesia?: No Meds Home Medications: Home Medication List Medication Instructions Recorded Confirmed Type Amoxicillin/Clavulanate [Augmentin 1 tab PO Q12 #10 tab 11/13/18 Rx 500 MG-125 MG] Allergies/Adverse Reactions: Allergies Allergy/AdvReac Type Severity Reaction Status Date / Time codeine Allergy RASH Verified 01/29/16 13:45 Physical Exam - Head Exam Head Exam: NORMAL INSPECTION - Eye Exam Eye Exam: Normal appearance - Respiratory Exam Respiratory Exam: Decreased Breath Sounds, Rhonchi, Wheezes - Cardiovascular Exam Cardiovascular Exam: REGULAR RHYTHM - GI/Abdominal Exam GI & Abdominal Exam: Normal Bowel Sounds - Neurological Exam Neurological exam: CN II-XII Intact, Oriented x3 - Psychiatric Exam Psychiatric exam: Normal Mood Results - Vital Signs Recent Vital Signs: Last Vital Signs Temp 97.7 F 11/12/18 01:36 Pulse 100 H 11/12/18 01:36 Resp 18 11/12/18 01:36 BP 138/74 11/12/18 01:36 Pulse Ox 96 11/12/18 01:36 - Labs Result Diagrams: 11/12/18 09:20 11/12/18 09:20 Labs: Laboratory Results - last 24 hr 11/11/18 11/11/18 11/11/18 08:38 08:38 08:39 WBC 6.3 RBC 5.00 Hgb 13.5 Hct 42.2 MCV 84.4 MCH 27.0 MCHC 32.0 L RDW 15.6 H Plt Count 261 MPV 9.0 Neut % (Auto) 62.3 Lymph % (Auto) 28.4 [place] % (Auto) 7.9 Eos % (Auto) 0.9 Baso % (Auto) 0.5 Neut # (Auto) 3.9 Lymph # (Auto) 1.8 [place] # (Auto) 0.5 Eos # (Auto) 0.1 Baso # (Auto) 0.0 pO2 33 VBG pH 7.32 VBG pCO2 58 VBG HCO3 25.7 VBG Total CO2 31.7 H VBG O2 Sat (Calc) 63.2 VBG Base Excess 2.4 H VBG Potassium 3.6 Glucose 197 H Lactate 2.8 H FiO2 21.0 Blood Gas Comments Lac=2.8 Crit Value Called To annabelle Hernandez Crit Value Called By 22 Crit Value Read Back Y Blood Gas Notified Time 846 Sodium 141 140.0 Potassium 3.7 Chloride 100 104.0 Carbon Dioxide 28 Anion Gap 17 BUN 10 Creatinine 0.7 Est GFR ( Amer) > 60 Est GFR (Non-Af Amer) > 60 POC Glucose (mg/dL) Random Glucose 197 H Calcium 9.2 Total Bilirubin 0.3 AST 21 ALT 19 Alkaline Phosphatase 104 Troponin I 0.0120 NT-Pro-B Natriuret Pep 440 Total Protein 8.5 H Albumin 4.2 Globulin 4.3 H Albumin/Globulin Ratio 1.0 Venous Blood Potassium 3.6 11/11/18 11/11/18 11/11/18 09:56 12:22 21:18 WBC RBC Hgb Hct MCV MCH MCHC RDW Plt Count MPV Neut % (Auto) Lymph % (Auto) [place] % (Auto) Eos % (Auto) Baso % (Auto) Neut # (Auto) Lymph # (Auto) [place] # (Auto) Eos # (Auto) Baso # (Auto) pO2 VBG pH VBG pCO2 VBG HCO3 VBG Total CO2 VBG O2 Sat (Calc) VBG Base Excess VBG Potassium Glucose Lactate FiO2 Blood Gas Comments Crit Value Called To Crit Value Called By Crit Value Read Back Blood Gas Notified Time Sodium Potassium Chloride Carbon Dioxide Anion Gap BUN Creatinine Est GFR ( Amer) Est GFR (Non-Af Amer) POC Glucose (mg/dL) 220 H 194 H 252 H Random Glucose Calcium Total Bilirubin AST ALT Alkaline Phosphatase Troponin I NT-Pro-B Natriuret Pep Total Protein Albumin Globulin Albumin/Globulin Ratio Venous Blood Potassium Assessment & Plan (1) Asthma Status: Acute (2) Diabetes mellitus type 2 in obese Status: Acute (3) Hypertension Status: Acute (4) Pneumonia Status: Acute - Assessment and Plan (Free Text) Plan: Start IV antibiotics neb tx Cont meds telemetry Cardiology eval
[2018-11-12] MEDS: Albuterol-Ipratrop 3 mg / 0.5 (3 ml) UD INH SCH ×4 (07:15→20:12)
--- NOTE | 2018-11-12 07:43 | CP.PCM.CON ---
History of Present Illness - History of Present Illness History of Present Illness: I was asked to see patient by Dr Paige Patient seen 11/12/18 2510 Patient is a 83 year old male with female with HTN, DM who presents with dyspnea. The patient describes dyspnea on exertion describes as worse when walking one block. She has to stop for symptoms to imrpove. She also developed orthopnea. Review of Systems - Constitutional Constitutional: absent: As Per HPI, Anorexia, Chills, Daytime Sleepiness, Excessive Sweating, Fatigue, Fever, Frequent Falls, Headache, Increased Appetite, Lethargy, Malaise, Night Sweats, Snoring, Sleep Apnea, Weight Gain, Weight Loss, Weakness, Other - EENT Eyes: absent: As Per HPI, Blind Spots, Blurred Vision, Change in Vision, Decreased Night Vision, Diplopia, Discharge, Dry Eye, Exophthalmos, Floaters, Irritation, Itchy Eyes, Loss of Peripheral Vision, Pain, Photophobia, Requires Corrective Lenses, Sees Flashes, Spots in Vision, Tunnel Vision, Other Visual Disturbances, Loss of Vision, Other Ears: absent: As Per HPI, Decreased Hearing, Ear Discharge, Ear Pain, Tinnitus, Abnormal Hearing, Disequilibrium, Dizziness, Other Nose/Mouth/Throat: absent: As Per HPI, Epistaxis, Nasal Congestion, Nasal Discharge, Nasal Obstruction, Nasal Trauma, Nose Pain, Post Nasal Drip, Sinus Pain, Sinus Pressure, Bleeding Gums, Change in Voice, Dental Pain, Dry Mouth, Dysphagia, Halitosis, Hoarsness, Lip Swelling, Mouth Lesions, Mouth Pain, Odynophagia, Sore Throat, Throat Swelling, Tongue Swelling, Facial Pain, Neck Pain, Neck Mass, Other - Breasts Breasts: absent: As Per HPI, Change in Shape, Mass, Pain, Nipple Discharge, Nipple Inversion, Skin Changes, Swelling, Other - Cardiovascular Cardiovascular: Dyspnea, Orthopnea - Respiratory Respiratory: Dyspnea - Gastrointestinal Gastrointestinal: absent: As Per HPI, Abdominal Pain, Belching, Bloating, Change in Bowel Habits, Change in Stool Character, Coffee Ground Emesis, Constipation, Cramping, Diarrhea, Dyspepsia, Dysphagia, Early Satiety, Excessive Flatus, Fecal Incontinence, Heartburn, Hematemesis, Hematochezia, Loose Stools, Melena, Nausea, Odynophagia, Temesmus, Vomiting, Other - Genitourinary Genitourinary: absent: As Per HPI, Change in Urinary Stream, Difficulty Urinatin g, Dysuria, Flank Pain, Hematuria, Pyuria, Nocturia, Urinary Incontinence, Urinary Frequency, Urinary Hesitance, Urinary Urgency, Voiding Freq/Small Amts, Freq UTI, Hx Renal/Bladder Calculi, Hx /Renal Surgery, Bladder Distension, Other - Musculoskeletal Musculoskeletal: absent: As Per HPI, Abnormal Gait, Arthralgias, Atrophy, Back Pain, Deformity, Joint Swelling, Limited Range of Motion, Loss of Height, Muscle Cramps, Muscle Weakness, Myalgias, Neck Pain, Numbness, Radiating Pain into Limb, Stiffness, Tingling, Other - Integumentary Integumentary: absent: As Per HPI, Acne, Alopecia, Bleeding Lesions, Change in Hair, Change in Nails, Change in Pigmentation, Changing Lesions, Dry Skin, Erythema, Furuncle, Hirsutism, Lesions, New Lesions, Non-Healing Lesions, Photosensitivity, Pruritus, Rash, Skin Pain, Skin Ulcer, Sores, Striae, Swelling, Unusual Bruising, Wounds, Jaundice, Other - Neurological Neurological: absent: As Per HPI, Abnormal Gait, Abnormal Hearing, Abnormal Movements, Abnormal Speech, Behavioral Changes, Burning Sensations, Confusion, Convulsions, Disequilibrium, Dizziness, Numbness, Focal Weakness, Frequent Falls, Headaches, Lack of Coordination, Loss of Vision, Memory Loss, Paresthesias, Radicular Pain, Restless Legs, Sensory Deficit, Syncope, Tingling, Tremor, Vertigo, Weakness, Other Visual Disturbances, Other - Psychiatric Psychiatric: absent: As Per HPI, Abnormal Sleep Pattern, Anhedonia, Anxiety, Auditory Hallucinations, Behavioral Changes, Change in Appetite, Change in Libido, Confusion, Depression, Difficulty Concentrating, Hallucinations, Homicidal Ideation, Hopelessness, Irritability, Memory Loss, Mood Swings, Panic Attacks, Paranoia, Suicidal Ideation, Visual Hallucinations, Tactile Hallucin ations, Other - Endocrine Endocrine: absent: As Per HPI, Change in Body Appearance, Change in Libido, Cold Intolorance, Deepening of Voice, Excessive Sweating, Fatigue, Flushing, Heat Intolorance, Increase in Ring/Shoe/Hat Size, Palpitations, Polydipsia, Polyph agia, Polyuria, Other - Hematologic/Lymphatic Hematologic: absent: As Per HPI, Easy Bleeding, Easy Bruising, Lymphadenopathy, Other Past Patient History - Infectious Disease Hx of Infectious Diseases: None - Past Medical History & Family History Past Medical History?: Yes - Past Social History Smoking Status: Never Smoked - CARDIAC Hx Cardiac Disorders: Yes Hx Hypercholesterolemia: Yes (noncompliant w/meds) Hx Hypertension: Yes - PULMONARY Hx Respiratory Disorders: Yes Hx Asthma: Yes - NEUROLOGICAL Hx Neurological Disorder: No - HEENT Hx HEENT Problems: Yes Hx Cataracts: Yes - RENAL Hx Chronic Kidney Disease: No - ENDOCRINE/METABOLIC Hx Endocrine Disorders: Yes Hx Diabetes Mellitus Type 2: Yes - HEMATOLOGICAL/ONCOLOGICAL Hx Blood Disorders: No Hx AIDS: No Hx Human Immunodeficiency Virus (HIV): No - INTEGUMENTARY Hx Dermatological Problems: No - MUSCULOSKELETAL/RHEUMATOLOGICAL Hx Musculoskeletal Disorders: No Hx Falls: No - GASTROINTESTINAL Hx Gastrointestinal Disorders: No - GENITOURINARY/GYNECOLOGICAL Hx Genitourinary Disorders: No - PSYCHIATRIC Hx Psychophysiologic Disorder: No Hx Substance Use: No - SURGICAL HISTORY Hx Surgeries: Yes Hx Appendectomy: Yes Hx Tonsillectomy: Yes Other/Comment: Bilateral cataract 2010 - ANESTHESIA Hx Anesthesia: Yes Hx Anesthesia Reactions: No Hx Malignant Hyperthermia: No Has any member of the family had a problem w/ anesthesia?: No Meds Allergies/Adverse Reactions: Allergies Allergy/AdvReac Type Severity Reaction Status Date / Time codeine Allergy RASH Verified 01/29/16 13:45 - Medications Medications: Current Medications Albuterol/Ipratropium (Duoneb 3 Mg/0.5 Mg (3 Ml) Ud) 3 ml INH RQID [facility] Last Admin: 11/12/18 07:15 Dose: 3 ml Allopurinol (Zyloprim) 100 mg PO DAILY [facility] Last Admin: 11/11/18 18:27 Dose: Not Given Diltiazem HCl (Cardizem Cd) 120 mg PO DAILY [facility] Last Admin: 11/11/18 18:00 Dose: 120 mg Enoxaparin Sodium (Lovenox) 40 mg SC DAILY [facility]; Protocol Last Admin: 11/11/18 18:05 Dose: 40 mg Furosemide (Lasix) 40 mg IVP DAILY [facility] Ceftriaxone Sodium 1 gm/ (Sodium Chloride) 100 mls @ 100 mls/hr IVPB DAILY [facility]; Protocol Last Admin: 11/11/18 18:08 Dose: 100 mls/hr Azithromycin 500 mg/ Sodium (Chloride) 250 mls @ 250 mls/hr IVPB DAILY [facility]; Protocol Last Admin: 11/11/18 18:09 Dose: 250 mls/hr Insulin Human Regular (Humulin R) 0 units SC ACHS [facility]; Protocol Last Admin: 11/11/18 21:33 Dose: Not Given Metformin HCl (Glucophage) 500 mg PO BID [facility] Last Admin: 11/11/18 18:00 Dose: 500 mg Montelukast Sodium (Singulair) 10 mg PO DAILY [facility] Last Admin: 11/11/18 18:25 Dose: Not Given Physical Exam - Constitutional Appears: Non-toxic - Head Exam Head Exam: NORMAL INSPECTION - Eye Exam Eye Exam: Normal appearance - ENT Exam ENT Exam: Mucous Membranes Moist - Neck Exam Neck exam: Positive for: Normal Inspection - Respiratory Exam Respiratory Exam: NORMAL BREATHING PATTERN - Cardiovascular Exam Cardiovascular Exam: REGULAR RHYTHM - GI/Abdominal Exam GI & Abdominal Exam: Normal Bowel Sounds - Rectal Exam Rectal Exam: absent: Deferred - Extremities Exam Extremities exam: Positive for: normal inspection. Negative for: pedal edema - Back Exam Back exam: NORMAL INSPECTION - Neurological Exam Neurological exam: Alert, Oriented x3 - Psychiatric Exam Psychiatric exam: Normal Affect - Skin Skin Exam: Normal Color Results - Vital Signs Recent Vital Signs: Last Vital Signs Temp 98.0 F 11/12/18 04:33 Pulse 85 11/12/18 04:33 Resp 16 11/12/18 04:33 BP 126/78 11/12/18 04:33 Pulse Ox 96 11/12/18 04:33 - Labs Result Diagrams: 11/11/18 08:38 11/11/18 08:38 Labs: Laboratory Results - last 24 hr 11/11/18 11/11/18 11/11/18 08:38 08:38 08:39 WBC 6.3 RBC 5.00 Hgb 13.5 Hct 42.2 MCV 84.4 MCH 27.0 MCHC 32.0 L RDW 15.6 H Plt Count 261 MPV 9.0 Neut % (Auto) 62.3 Lymph % (Auto) 28.4 [place] % (Auto) 7.9 Eos % (Auto) 0.9 Baso % (Auto) 0.5 Neut # (Auto) 3.9 Lymph # (Auto) 1.8 [place] # (Auto) 0.5 Eos # (Auto) 0.1 Baso # (Auto) 0.0 pO2 33 VBG pH 7.32 VBG pCO2 58 VBG HCO3 25.7 VBG Total CO2 31.7 H VBG O2 Sat (Calc) 63.2 VBG Base Excess 2.4 H VBG Potassium 3.6 Glucose 197 H Lactate 2.8 H FiO2 21.0 Blood Gas Comments Lac=2.8 Crit Value Called To annabelle Hernandez Crit Value Called By 22 Crit Value Read Back Y Blood Gas Notified Time 846 Sodium 141 140.0 Potassium 3.7 Chloride 100 104.0 Carbon Dioxide 28 Anion Gap 17 BUN 10 Creatinine 0.7 Est GFR ( Amer) > 60 Est GFR (Non-Af Amer) > 60 POC Glucose (mg/dL) Random Glucose 197 H Calcium 9.2 Total Bilirubin 0.3 AST 21 ALT 19 Alkaline Phosphatase 104 Troponin I 0.0120 NT-Pro-B Natriuret Pep 440 Total Protein 8.5 H Albumin 4.2 Globulin 4.3 H Albumin/Globulin Ratio 1.0 Venous Blood Potassium 3.6 11/11/18 11/11/18 11/11/18 09:56 12:22 21:18 WBC RBC Hgb Hct MCV MCH MCHC RDW Plt Count MPV Neut % (Auto) Lymph % (Auto) [place] % (Auto) Eos % (Auto) Baso % (Auto) Neut # (Auto) Lymph # (Auto) [place] # (Auto) Eos # (Auto) Baso # (Auto) pO2 VBG pH VBG pCO2 VBG HCO3 VBG Total CO2 VBG O2 Sat (Calc) VBG Base Excess VBG Potassium Glucose Lactate FiO2 Blood Gas Comments Crit Value Called To Crit Value Called By Crit Value Read Back Blood Gas Notified Time Sodium Potassium Chloride Carbon Dioxide Anion Gap BUN Creatinine Est GFR ( Amer) Est GFR (Non-Af Amer) POC Glucose (mg/dL) 220 H 194 H 252 H Random Glucose Calcium Total Bilirubin AST ALT Alkaline Phosphatase Troponin I NT-Pro-B Natriuret Pep Total Protein Albumin Globulin Albumin/Globulin Ratio Venous Blood Potassium - EKG Data EKG Interpreted by: Myself EKG shows normal: Sinus rhythm Assessment & Plan (1) Dyspnea Assessment and Plan: risk factors for CHF. will schedule echocardiogram to evaluate LV function Status: Acute (2) Diabetes Assessment and Plan: risk factor for CAD Status: Acute (3) Hypertension Assessment and Plan: blood pressure control Status: Acute
[2018-11-12] MEDS: Insulin Regular 100 units/ml SC SCH ×4 (08:03→21:30)
[2018-11-12 09:43] LABS: HEMOGLOBIN 11.5 g/dL (12.0-16.0); MEAN CELL VOLUME 85.8 fl (81.0-99.0); MEAN CORPUSCULAR HEMOGLOBIN 27.6 pg (27.0-31.0); MEAN CORPUSCULAR HGB CONC 32.2 g/dL (33.0-37.0); RBC 4.17 Mil/uL (3.80-5.20); RED CELL DISTRIBUTION WIDTH 16.1 % (11.5-14.5); WHITE BLOOD COUNT 7.3 K/uL (4.8-10.8)
[2018-11-12 09:56] LABS: BLOOD UREA NITROGEN 14 mg/dl (7-17); CALCIUM 9.2 mg/dL (8.4-10.2); GFR NON-AFRICAN AMERICAN > 60
[2018-11-12] MEDS: diltiaZEM 120 mg/24 Hours CD Cap PO SCH (09:58)
[2018-11-12] MEDS: Enoxaparin 40 mg Syringe SC SCH (09:58)
[2018-11-12] MEDS: Azithromycin 500 MG in Sodium Chloride 0.9% 250 ML IVPB SCH (09:59)
--- NOTE | 2018-11-12 12:27 | US ---
Date of service: 11/11/2018 PROCEDURE: Bilateral lower extremity venous duplex Doppler. HISTORY: bilateral legs swollen COMPARISON: None available. TECHNIQUE: Bilateral common femoral, superficial femoral, popliteal and posterior tibial veins were evaluated. Flow was assessed with color Doppler, compressibility, assessment of phasic flow and augmentation response. FINDINGS: COMMON FEMORAL VEIN: Right CFV: Unremarkable. Left CFV: Unremarkable. SUPERFICIAL FEMORAL VEIN: Right SFV: Unremarkable. Left SFV: Unremarkable. POPLITEAL VEIN: Right Popliteal: Unremarkable. Left Popliteal: Unremarkable. POSTERIOR TIBIAL VEIN: Right PTV: Unremarkable. Left PTV: Not visualized. OTHER FINDINGS: None. IMPRESSION: No evidence of deep venous thrombosis.
--- NOTE | 2018-11-12 21:56 | CARD ---
APPROVED REPORT Date of service: 11/12/2018 EXAM: Two-dimensional and M-mode echocardiogram with Doppler and color Doppler. Other Information Quality : GoodRhythm : NSR INDICATION Chest pressure 2D DIMENSIONS IVSd1.75 (0.7-1.1cm)LVDd4.17 (3.9-5.9cm) LVOT Diameter2.38 (1.8-2.4cm)PWd1.19 (0.7-1.1cm) IVSs2.24 (0.8-1.2cm)LVDs2.48 (2.5-4.0cm) FS (%) 40.5 %PWs1.93 (0.8-1.2cm) M-Mode DIMENSIONS Left Atrium (MM)4.41 (2.5-4.0cm)IVSd1.21 (0.7-1.1cm) Aortic Root2.50 (2.2-3.7cm)LVDd3.76 (4.0-5.6cm) Aortic Cusp Exc.1.76 (1.5-2.0cm)PWd1.12 (0.7-1.1cm) IVSs1.74 cmFS (%) 52 % LVDs1.79 (2.0-3.8cm)PWs1.50 cm Aortic Valve AoV Peak Mbdxduba202.7cm/sAoV VTI34.7cmAO Peak GR.15mmHg LVOT Peak Bgxwjblv224.5cm/sLVOT VTI23.60cmAO Mean GR.8mmHg ODETTE (VMAX)1.71cm4BZN (VTI)1.53cm2 Mitral Valve MV E Cvxrvugz41.1cm/sMV DECEL GDVG466cnNM A Jidarrat15.9cm/s MV PQE19nfX/A ratio1.6MVA (PHT)3.94cm2 TDI Lateral E' Peak V8.88cm/sMedial E' Peak V7.58cm/sE/Lateral E'10.6 E/Medial E'12.4 Tricuspid Valve TR Peak Sildwlqf692jw/sRAP MNFWONKK32evOwRA Peak Gr.33mmHg ANWY25ryCt LEFT VENTRICLE The left ventricle is normal size. There is borderline concentric left ventricular hypertrophy. The left ventricular systolic function is normal. The estimated ejection fraction is 65-70% No regional wall motion abnormalities noted.. The left ventricular diastolic function is normal. No left ventricle thrombus noted on this study. There is no ventricular septal defect visualized. There is no left ventricular aneurysm. There is no mass noted in the left ventricle. RIGHT VENTRICLE The right ventricle is normal size. There is normal right ventricular wall thickness. The right ventricular systolic function is normal. ATRIA The left atrium is mildly dilated. The right atrium size is normal. The interatrial septum is intact with no evidence for an atrial septal defect. AORTIC VALVE The aortic valve is normal in structure. No aortic regurgitation is present. There is no aortic valvular stenosis. There is no aortic valvular vegetation. MITRAL VALVE The mitral valve is normal in structure. There is no evidence of mitral valve prolapse. There is no mitral valve stenosis. Mitral regurgitation is trace. TRICUSPID VALVE The tricuspid valve is normal in structure. There is trace tricuspid regurgitation.Estimated peak RVSP=36mmHg There is no tricuspid valve prolapse or vegetation. There is no tricuspid valve stenosis. PULMONIC VALVE The pulmonary valve is normal in structure. There is no pulmonic valvular regurgitation. There is no pulmonic valvular stenosis. GREAT VESSELS The aortic root is normal in size. The ascending aorta is normal in size. The pulmonary artery is normal. The IVC is normal in size and collapses >50% with inspiration. PERICARDIAL EFFUSION There is no pericardial effusion. There is no pleural effusion. <Conclusion> Normal LV size and systolic function The estimated ejection fraction is 65-70% Mild LAE Trace MR and TR
[2018-11-13 05:10] VITALS: RESP 18
[2018-11-13] MEDS: Insulin Regular 100 units/ml SC SCH (07:20)
[2018-11-13] MEDS: Albuterol-Ipratrop 3 mg / 0.5 (3 ml) UD INH SCH ×2 (08:22→11:39)
[2018-11-13] MEDS: diltiaZEM 120 mg/24 Hours CD Cap PO SCH (08:51)
[2018-11-13] MEDS: Enoxaparin 40 mg Syringe SC SCH (08:54)
[2018-11-13] MEDS ORDERED: guaiFENesin-DM 600-30 mg ER Tab PO SCH (10:00)
[2018-11-13] MEDS: Azithromycin 500 MG in Sodium Chloride 0.9% 250 ML IVPB SCH (11:22)
[2018-11-13 11:45] VITALS: BP 137/80; PULSE 94; TEMP 97.6; O2SAT 97
--- NOTE | 2018-11-13 18:35 | CP.PCM.PN ---
Subjective - Date & Time of Evaluation Date of Evaluation: 11/13/18 Time of Evaluation: 18:30 - Subjective Subjective: patient not in room at the time of my arrival. echocardiogram reviewed. preserved LV function 'no valvular dysfunction continue medical therapy Objective - Vital Signs/Intake and Output Vital Signs (last 24 hours): Temp Pulse Resp BP Pulse Ox 97.6 F 94 H 18 137/80 97 11/13/18 11:44 11/13/18 11:44 11/13/18 11:44 11/13/18 11:44 11/13/18 11:44 - Labs Labs: 11/12/18 09:20 11/12/18 09:20 Assessment and Plan (1) Dyspnea Status: Acute (2) Diabetes Status: Acute (3) Hypertension Status: Acute
--- NOTE | 2018-11-18 22:55 | CP.PCM.PN ---
Subjective - Date & Time of Evaluation Date of Evaluation: 11/12/18 Time of Evaluation: 10:30 - Subjective Subjective: Patient is doing a lot better Has no chest pain Still with SOB Still with cough Objective - Vital Signs/Intake and Output Vital Signs (last 24 hours): Temp Pulse Resp BP Pulse Ox 97.6 F 94 H 18 137/80 97 11/13/18 11:44 11/13/18 11:44 11/13/18 11:44 11/13/18 11:44 11/13/18 11:44 - Labs Labs: 11/12/18 09:20 11/12/18 09:20 - Head Exam Head Exam: NORMAL INSPECTION - Eye Exam Eye Exam: Normal appearance - ENT Exam ENT Exam: Mucous Membranes Moist - Respiratory Exam Respiratory Exam: Decreased Breath Sounds, Rales, Rhonchi, Wheezes - Cardiovascular Exam Cardiovascular Exam: REGULAR RHYTHM - GI/Abdominal Exam GI & Abdominal Exam: Soft Assessment and Plan (1) Asthma Status: Acute (2) Pneumonia Status: Acute (3) Diabetes mellitus type 2 in obese Status: Acute (4) Hypertension Status: Acute - Assessment and Plan (Free Text) Plan: Cont meds Cont tx Cont neb tx
--- NOTE | 2018-11-18 22:57 | CP.PCM.DIS ---
Provider - Provider Date of Admission: 11/11/18 09:57 Attending physician: Jose Paige MD Consults: 11/11/18 14:30 Cardiology Consult Routine Comment: Consulting Provider: Marie Valdez Consulting Physician: Marie Valdez Reason for Consult: Chest tightness, HTN Time Spent in preparation of Discharge (in minutes): 30 Hospital Course - Lab Results Lab Results: Micro Results 11/11/18 08:38 Blood-Venous Blood Culture - Final NO GROWTH AFTER 5 DAYS 11/11/18 08:38 Blood-Venous Gram Stain - Final TEST NOT PERFORMED Most Recent Lab Values WBC 7.3 K/uL (4.8-10.8) 11/12/18 09:20 RBC 4.17 Mil/uL (3.80-5.20) 11/12/18 09:20 Hgb 11.5 g/dL (12.0-16.0) L D 11/12/18 09:20 Hct 35.8 % (34.0-47.0) 11/12/18 09:20 MCV 85.8 fl (81.0-99.0) 11/12/18 09:20 MCH 27.6 pg (27.0-31.0) 11/12/18 09:20 MCHC 32.2 g/dL (33.0-37.0) L 11/12/18 09:20 RDW 16.1 % (11.5-14.5) H 11/12/18 09:20 Plt Count 263 K/uL (130-400) 11/12/18 09:20 MPV 9.0 fl (7.2-11.7) 11/11/18 08:38 Neut % (Auto) 62.3 % (50.0-75.0) 11/11/18 08:38 Lymph % (Auto) 28.4 % (20.0-40.0) 11/11/18 08:38 [place] % (Auto) 7.9 % (0.0-10.0) 11/11/18 08:38 Eos % (Auto) 0.9 % (0.0-4.0) 11/11/18 08:38 Baso % (Auto) 0.5 % (0.0-2.0) 11/11/18 08:38 Neut # (Auto) 3.9 K/uL (1.8-7.0) 11/11/18 08:38 Lymph # (Auto) 1.8 K/uL (1.0-4.3) 11/11/18 08:38 [place] # (Auto) 0.5 K/uL (0.0-0.8) 11/11/18 08:38 Eos # (Auto) 0.1 K/uL (0.0-0.7) 11/11/18 08:38 Baso # (Auto) 0.0 K/uL (0.0-0.2) 11/11/18 08:38 pO2 33 mm/Hg (30-55) 11/11/18 08:39 VBG pH 7.32 (7.32-7.43) 11/11/18 08:39 VBG pCO2 58 mmHg (40-60) 11/11/18 08:39 VBG HCO3 25.7 mmol/L 11/11/18 08:39 VBG Total CO2 31.7 mmol/L (22-28) H 11/11/18 08:39 VBG O2 Sat (Calc) 63.2 % (40-65) 11/11/18 08:39 VBG Base Excess 2.4 mmol/L (0.0-2.0) H 11/11/18 08:39 VBG Potassium 3.6 mmol/L (3.6-5.2) 11/11/18 08:39 Sodium 140.0 mmol/L (132-148) 11/11/18 08:39 Chloride 104.0 mmol/L (98-107) 11/11/18 08:39 Glucose 197 mg/dL (65-105) H 11/11/18 08:39 Lactate 2.8 mmol/L (0.7-2.1) H 11/11/18 08:39 FiO2 21.0 % 11/11/18 08:39 Blood Gas Comments Lac=2.8 11/11/18 08:39 Crit Value Called To annabelle Hernandez 11/11/18 08:39 Crit Value Called By 22 11/11/18 08:39 Crit Value Read Back Y 11/11/18 08:39 Blood Gas Notified Time 846 11/11/18 08:39 Sodium 139 mmol/l (132-148) 11/12/18 09:20 Potassium 3.9 MMOL/L (3.6-5.0) 11/12/18 09:20 Chloride 101 mmol/L (98-107) 11/12/18 09:20 Carbon Dioxide 31 mmol/L (22-30) H 11/12/18 09:20 Anion Gap 11 (10-20) 11/12/18 09:20 BUN 14 mg/dl (7-17) 11/12/18 09:20 Creatinine 0.7 mg/dl (0.7-1.2) 11/12/18 09:20 Est GFR ( Amer) > 60 11/12/18 09:20 Est GFR (Non-Af Amer) > 60 11/12/18 09:20 POC Glucose (mg/dL) 208 mg/dL (65-110) H 11/13/18 10:33 Random Glucose 198 mg/dL (65-105) H 11/12/18 09:20 Lactic Acid 2.8 MMOL/L (0.7-2.1) H 11/12/18 09:20 Calcium 9.2 mg/dL (8.4-10.2) 11/12/18 09:20 Total Bilirubin 0.3 mg/dl (0.2-1.3) 11/11/18 08:38 AST 21 U/L (14-36) 11/11/18 08:38 ALT 19 U/L (9-52) 11/11/18 08:38 Alkaline Phosphatase 104 U/L (38-126) 11/11/18 08:38 Troponin I 0.0120 ng/mL (0.00-0.120) 11/11/18 08:38 NT-Pro-B Natriuret Pep 440 pg/ml (0-900) 11/11/18 08:38 Total Protein 8.5 G/DL (6.3-8.2) H 11/11/18 08:38 Albumin 4.2 g/dL (3.5-5.0) 11/11/18 08:38 Globulin 4.3 gm/dL (2.2-3.9) H 11/11/18 08:38 Albumin/Globulin Ratio 1.0 (1.0-2.1) 11/11/18 08:38 Venous Blood Potassium 3.6 mmol/L (3.6-5.2) 11/11/18 08:39 - Hospital Course Hospital Course: This is a 83 y/o female admitted for asthma and pneumonia. She was started on Iv antibiotics and neb tx and cough medications. She was admitted to telemetry and responded very well. She was discharged in stable condition and sent home on po antibiotics. She was advised to follow up in office in 1 week. Discharge Exam - Head Exam Head Exam: NORMAL INSPECTION - Eye Exam Eye Exam: Normal appearance - Respiratory Exam Respiratory Exam: Clear to PA & Lateral - Cardiovascular Exam Cardiovascular Exam: REGULAR RHYTHM - GI/Abdominal Exam GI & Abdominal Exam: Normal Bowel Sounds - Neurological Exam Neurological exam: CN II-XII Intact - Psychiatric Exam Psychiatric exam: Normal Mood Discharge Plan - Discharge Medications Prescriptions: Amoxicillin/Clavulanate [Augmentin 500 MG-125 MG] 1 tab PO Q12 #10 tab - Follow Up Plan Condition: FAIR Disposition: HOME/ ROUTINE Instructions: Pneumonia, Adult (DC) Additional Instructions: please follow up with on monday11/20/18 11:00am Referrals: Jose Paige MD [Staff Provider] - Koffi Parra MD [Staff Provider] -
--- NOTE | 2018-11-20 13:45 | PQF ---
PROVIDER RESPONSE TEXT: Viral infection REVIEWER QUERY TEXT: Pneumonia Specificity Pneumonia is documented in the Medical Record. Please specify the type of pneumonia and the causative organism (includes probable or suspected) Such as: Type: -- Aspiration pneumonia (please also specify the aspirate) - [place] (please specify cause) - Please indicate if the aspiration is postprocedure -- Bacterial (please document suspected or probable organism) -- Bronchopneumonia (please document suspected or probable organism) -- Interstitial pneumonia -- Organizing pneumonia / BOOP -- Pneumonia with influenza, amy flu, or H1N1 flu -- RSV -- Tuberculosis, pulmonary -- Viral -- Other, please specify The patient's Clinical Indicators include: Pt. on admission w/ SOB,wheezing and non-productive cough; per ER phys. documents " PNEUMONIA ; COPD w/ acute lower respiratory infection"; pt. treated w/ Azithromycin 500 mg. IVPB PLEASE CLARIFY IF DX. of PNEUMONIA was RULED IN or OUT. Query created by: Monica Clancy on 11/15/2018 5:19 PM Electronically signed by: Jose Paige MD 11/20/2018 1:42 PM
== END 2018-11-13 18:32 | disposition home or self-care (01) | DRG 190 ==
LOC: H.ER 08:12 → H.ERHOLD 09:57 → H.TEL 11:44
PROVIDERS: ADMIT Family Medicine; ATTEND Family Medicine
PROC: 3E0F73Z Introduction of Anti-inflammatory into Respiratory Tract, Via Natural or Artificial Opening (ICD-10-PCS; principal; 2018-11-11)
DX: J44.0 Chronic obstructive pulmonary disease with (acute) lower respiratory infection (principal); J12.9 Viral pneumonia, unspecified; E11.9 Type 2 diabetes mellitus without complications; I10 Essential (primary) hypertension; E78.00 Pure hypercholesterolemia, unspecified; E78.5 Hyperlipidemia, unspecified; I51.7 Cardiomegaly; Z91.14 Patient's other noncompliance with medication regimen; Z79.84 Long term (current) use of oral hypoglycemic drugs; Z88.6 Allergy status to analgesic agent

== ENCOUNTER 2018-12-26 15:07 | Inpatient (IN) | payer MEDICAID, MEDICARE ==
[2018-12-26 15:07] VITALS: BMI 39.6
[2018-12-26] MEDS ORDERED: Albuterol-Ipratrop 3 mg / 0.5 (3 ml) UD INH STA (15:26)
[2018-12-26] MEDS ORDERED: Albuterol-Ipratrop 3 mg / 0.5 (3 ml) UD ONE (15:51)
[2018-12-26 16:59] LABS: BASO # 0.1 K/uL (0.0-0.2); BASO % 0.6 % (0.0-2.0); EOS % 0.1 % (0.0-4.0); HEMOGLOBIN 13.5 g/dL (12.0-16.0); LYMPH # 1.2 K/uL (1.0-4.3); LYMPH % 9.6 % (20.0-40.0); MEAN CELL VOLUME 84.4 fl (81.0-99.0); MEAN CORPUSCULAR HEMOGLOBIN 26.4 pg (27.0-31.0); MEAN CORPUSCULAR HGB CONC 31.3 g/dL (33.0-37.0); MEAN PLATELET VOLUME 8.8 fl (7.2-11.7); MONO # 0.7 K/uL (0.0-0.8); MONO % 5.8 % (0.0-10.0); NEUT # 10.5 K/uL (1.8-7.0); NEUT % 83.9 % (50.0-75.0); NRBC % 0.1 % (0.0-0.0); PLATELET COUNT 264 K/uL (130-400); RBC 5.09 Mil/uL (3.80-5.20); RED CELL DISTRIBUTION WIDTH 15.4 % (11.5-14.5); WHITE BLOOD COUNT 12.5 K/uL (4.8-10.8)
[2018-12-26] MEDS ORDERED: Nitroglycerin 50mg in D5W 50 MG/250 ML BOTTLE IV ONE ×3 (17:15→18:15)
--- NOTE | 2018-12-26 17:21 | RAD ---
Date of service: 12/26/2018 HISTORY: SOB COMPARISON: 11/11/2018 FINDINGS: LUNGS: Persistent right basilar ill-defined opacity. Possible pneumonia. PLEURA: No significant pleural effusion identified, no pneumothorax apparent. CARDIOVASCULAR: No aortic atherosclerotic calcification present. Normal cardiac size. No pulmonary vascular congestion. OSSEOUS STRUCTURES: No significant abnormalities. VISUALIZED UPPER ABDOMEN: Normal. OTHER FINDINGS: None. IMPRESSION: Persistent ill-defined opacity at right base. Rule out pneumonia.
[2018-12-26 17:22] LABS: TROPONIN I 0.031 ng/mL (0.00-0.120)
[2018-12-26 18:40] LABS: BANDS 2 % (0-2); LYMPHOCYTE 9 % (20-50); MONOCYTE 5 % (0-10); NEUTROPHIL 84 % (42-75); PLATELET ESTIMATE NORMAL (NORMAL); TOTAL CELLS COUNTED 100
--- NOTE | 2018-12-26 18:56 | ED PDOC ---
HPI: SOB/CHF/COPD Time Seen by Provider: 12/26/18 15:16 Chief Complaint (Nursing): Respiratory Distress Chief Complaint (Provider): respiratory distress History Per: Patient History/Exam Limitations: no limitations Current Symptoms Are (Timing): Still Present Exacerbating Factor(s): Exertion, Coughing Associated Symptoms: Chills, Productive Cough, Ankle/Leg Swelling, Dizziness Additional Complaint(s): 83yo female arrives from home w family states today she is having difficulty breathing. Patient notes tightness in chest with cough, malaise, and lower extremity edema. Unknown history of CHF, they state she was prior on "water pill" but taken off? Unclear. Also note hospitalized early oct for pneumonia and asthma. PMD O Kristian Past Medical History Reviewed: Historical Data, Vital Signs Vital Signs: Last Vital Signs Temp 98.5 F 12/26/18 15:17 Pulse 114 H 12/26/18 17:50 Resp 23 12/26/18 17:50 BP 208/92 H 12/26/18 17:50 Pulse Ox 82 L 12/26/18 17:50 - Medical History PMH: Asthma, Bronchitis, Diabetes (type II), HTN, Hypercholesterolemia (noncompliant w/meds), Pneumonia Denies: HIV, Chronic Kidney Disease - Surgical History Surgical History: Appendectomy, Tonsillectomy - Family History Family History: States: Unknown Family Hx - Home Medications Home Medications: Ambulatory Orders Medication Instructions Recorded Metformin HCl [Glucophage] 500 mg PO BID 08/31/18 Montelukast Sodium [Singulair] 10 mg PO DAILY 11/11/18 diltiaZEM [Cardizem] 120 mg PO DAILY 11/11/18 Albuterol Sulfate [Ventolin Hfa] 2 puff IH Q6 PRN 12/26/18 Albuterol/Ipratropium [Duoneb 3 3 ml IH Q8 PRN 12/26/18 mg/0.5 mg (3 ml) UD] - Allergies Allergies/Adverse Reactions: Allergies Allergy/AdvReac Type Severity Reaction Status Date / Time codeine Allergy RASH Verified 12/26/18 15:21 Review of Systems Constitutional: Positive for: Chills, Malaise ENT: Negative for: Nose Pain, Throat Pain Cardiovascular: Positive for: Chest Pain, Palpitations, Orthopnea Respiratory: Positive for: Cough, Shortness of Breath, Sputum, Wheezing Gastrointestinal: Negative for: Abdominal Pain Genitourinary Female: Negative for: Dysuria Musculoskeletal: Negative for: Neck Pain Skin: Negative for: Rash Neurological: Positive for: Dizziness. Negative for: Weakness, Numbness Psych: Negative for: Suicidal ideation Physical Exam - Reviewed Nursing Documentation Reviewed: Yes Vital Signs Reviewed: Yes - Physical Exam Appears: Positive for: Non-toxic, Uncomfortable Head Exam: Positive for: ATRAUMATIC, NORMAL INSPECTION, NORMOCEPHALIC Skin: Positive for: Normal Color, Warm, DRY Eye Exam: Positive for: EOMI, Normal appearance, PERRL ENT: Positive for: Normal ENT Inspection Neck: Positive for: Normal, Painless ROM Cardiovascular/Chest: Positive for: Regular Rate, Rhythm Respiratory: Positive for: Decreased Breath Sounds, Wheezing, Respiratory Distre ss Gastrointestinal/Abdominal: Positive for: Normal Exam, Soft Back: Positive for: Normal Inspection Extremity: Positive for: Normal ROM, Swelling (2+ bl LE edema) Neurologic/Psych: Positive for: Alert, Oriented. Negative for: Motor/Sensory Deficits - Laboratory Results Result Diagrams: 12/26/18 16:47 12/26/18 19:43 Lab Results: Troponin I 0.0310 ng/mL (0.00-0.120) 12/26/18 16:47 NT-Pro-B Natriuret Pep 451 pg/ml (0-900) 12/26/18 16:47 Total Bilirubin Cancelled 12/26/18 16:47 AST Cancelled 12/26/18 16:47 ALT Cancelled 12/26/18 16:47 Alkaline Phosphatase Cancelled 12/26/18 16:47 Total Protein Cancelled 12/26/18 16:47 Albumin Cancelled 12/26/18 16:47 Globulin Cancelled 12/26/18 16:47 Albumin/Globulin Ratio Cancelled 12/26/18 16:47 - ECG ECG: Positive for: Interpreted By Me ECG Rhythm: Positive for: Sinus Tachycardia, ST/T Changes, Nonspecific Changes O2 Sat by Pulse Oximetry: 82 Pulse Ox Interpretation: Abnormal - Radiology X-Ray: Read By Radiologist X-Ray Interpretation: Infiltrates - Critical Care Total Time (In Min): 45 Comments: patient required immediate bedside attention for respiratory distress and hypoxia Medical Decision Making Medical Decision Making: bronchodilators and solumedrol initiated given known asthmatic history patient also hypertensive on arrival w LE edema, thus nitro drip low dose initi ated CXR reveiwed and report reveals likely persistent infiltrates, antibiotics initiated after cultures obtained SPO2 85-89% on neb, vapotherm initiated for work of breathing. 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 Disposition - Clinical Impression Clinical Impression: Acute respiratory distress, Hypertension - Patient ED Disposition Is Patient to be Admitted: Yes Counseled Patient/Family Regarding: Studies Performed, Diagnosis - Disposition Disposition Time: 17:45 Condition: FAIR - Pt Status Changed To: Hospital Disposition Of: Inpatient - Admit Certification Admit to Inpatient:: After my assessment, the patient will require hospitalization for at least two midnights. This is because of the severity of symptoms shown, intensity of services needed, and/or the medical risk in this patient being treated as an outpatient. - POA Present On Arrival: None
--- NOTE | 2018-12-26 19:44 | CP.PCM.CON ---
History of Present Illness - History of Present Illness History of Present Illness: Attending: Dr Paige PMD: Janet Townsend MD Reason for Consult: Critical care management Chief Complaint: SOB The Patient was seen and examined in the ED HPI: The hx was obtained from the patient, her family and after review of the medical chart. This is an 83 years old female with hx of Asthma, DM II and Pneumonia, last admitted on 11/01/18 with diagnosis of Pneumonia. She comes with nightly SOB with wheezing for the past 2-3 nights, worse today. Associated was chest tightness with coughing and dizziness. In the ED she was treated with bronchodilaters and Methylprednisolomne, but still continued with SOB. PMH: Asthma; DM II; HTN; HLD; Non compliant with medication; Diverticulitis; Pneumonia PSH: Tonsillitis; Appendectomy; Bilateral Contract surgery 2010 SH: Never Smoked; No alcohol use; No illegal drug use FH: States: Unknown Family Hx Allergies: Codeine Medication: Reviewed Review of Systems - Constitutional Constitutional: absent: Anorexia, Chills, Fatigue, Fever, Headache - EENT Eyes: Requires Corrective Lenses. absent: Blurred Vision, Diplopia, Floaters Ears: absent: Decreased Hearing, Ear Discharge, Tinnitus Nose/Mouth/Throat: absent: Nasal Congestion, Nasal Discharge, Nasal Trauma - Cardiovascular Cardiovascular: Edema. absent: Chest Pain, Claudication - Respiratory Respiratory: Cough, Dyspnea, Wheezing. absent: Stridor - Gastrointestinal Gastrointestinal: absent: Abdominal Pain, Constipation, Diarrhea, Nausea, Vomiting - Genitourinary Genitourinary: absent: Dysuria, Flank Pain, Hematuria - Musculoskeletal Musculoskeletal: absent: Arthralgias - Integumentary Integumentary: absent: Pruritus, Rash, Skin Ulcer, Sores, Striae - Neurological Neurological: absent: Confusion, Dizziness, Focal Weakness, Headaches, Loss of Vision, Weakness - Psychiatric Psychiatric: absent: Anxiety, Depression, Panic Attacks - Endocrine Endocrine: absent: Palpitations, Polydipsia, Polyphagia, Polyuria - Hematologic/Lymphatic Hematologic: absent: Easy Bleeding, Easy Bruising Past Patient History - Infectious Disease Hx of Infectious Diseases: None - Past Medical History & Family History Past Medical History?: Yes - Past Social History Smoking Status: Never Smoked Chewing Tobacco Use: Yes Cigar Use: Yes Alcohol: None Drugs: Denies - CARDIAC Hx Hypercholesterolemia: Yes (noncompliant w/meds) Hx Hypertension: Yes - PULMONARY Hx Asthma: Yes Hx Bronchitis: Yes Hx Pneumonia: Yes - NEUROLOGICAL Hx Neurological Disorder: No - HEENT Hx HEENT Problems: No - RENAL Hx Chronic Kidney Disease: No - ENDOCRINE/METABOLIC Hx Endocrine Disorders: Yes Hx Diabetes Mellitus Type 2: Yes - HEMATOLOGICAL/ONCOLOGICAL Hx Human Immunodeficiency Virus (HIV): No - INTEGUMENTARY Hx Dermatological Problems: No - MUSCULOSKELETAL/RHEUMATOLOGICAL Hx Musculoskeletal Disorders: No Hx Falls: No - GASTROINTESTINAL Hx Gastrointestinal Disorders: No - GENITOURINARY/GYNECOLOGICAL Hx Genitourinary Disorders: No - PSYCHIATRIC Hx Psychophysiologic Disorder: No Hx Substance Use: No - SURGICAL HISTORY Hx Appendectomy: Yes Hx Tonsillectomy: Yes - ANESTHESIA Hx Anesthesia: Yes Hx Anesthesia Reactions: No Hx Malignant Hyperthermia: No Meds Allergies/Adverse Reactions: Allergies Allergy/AdvReac Type Severity Reaction Status Date / Time codeine Allergy RASH Verified 12/26/18 15:21 - Medications Medications: Current Medications Azithromycin 500 mg/ Sodium (Chloride) 250 mls @ 250 mls/hr IVPB DAILY FRANCES; Protocol Nitroglycerin/Dextrose (Nitroglycerin 50 Mg/250 Ml D5w) 50 mg in 250 mls @ 1.5 mls/hr IV .Q24H ONE; Protocol Stop: 12/27/18 18:14 Physical Exam - Constitutional Appears: In Acute Distress - Head Exam Head Exam: ATRAUMATIC, NORMAL INSPECTION, NORMOCEPHALIC - Eye Exam Eye Exam: EOMI, Normal appearance Pupil Exam: NORMAL ACCOMODATION, PERRL - ENT Exam ENT Exam: Mucous Membranes Dry, Normal Exam, Normal External Ear Exam - Neck Exam Neck exam: Positive for: Full Rom, Normal Inspection - Respiratory Exam Respiratory Exam: Rhonchi. absent: Rales, Wheezes, Stridor Additional comments: Decreased breath sounds at the right base. - Cardiovascular Exam Cardiovascular Exam: REGULAR RHYTHM, RRR, +S1, +S2. absent: Gallop, JVD - GI/Abdominal Exam GI & Abdominal Exam: Normal Bowel Sounds, Soft. absent: Mass, Organomegaly, Tenderness - Rectal Exam Rectal Exam: Deferred Results - Vital Signs Recent Vital Signs: Last Vital Signs Temp 98.5 F 12/26/18 15:17 Pulse 112 H 12/26/18 19:41 Resp 20 12/26/18 19:41 BP 157/95 H 12/26/18 19:41 Pulse Ox 82 L 12/26/18 19:43 - Labs Result Diagrams: 12/26/18 16:47 12/26/18 19:43 Labs: Laboratory Results - last 24 hr 12/26/18 12/26/18 12/26/18 15:14 16:47 16:47 WBC 12.5 H D RBC 5.09 Hgb 13.5 D Hct 43.0 MCV 84.4 MCH 26.4 L MCHC 31.3 L RDW 15.4 H Plt Count 264 MPV 8.8 Neut % (Auto) 83.9 H Lymph % (Auto) 9.6 L [place] % (Auto) 5.8 Eos % (Auto) 0.1 Baso % (Auto) 0.6 Neut # (Auto) 10.5 H Lymph # (Auto) 1.2 [place] # (Auto) 0.7 Eos # (Auto) 0.0 Baso # (Auto) 0.1 Neutrophils % (Manual) 84 H Band Neutrophils % 2 Lymphocytes % (Manual) 9 L Monocytes % (Manual) 5 Platelet Estimate Normal Sodium Cancelled Potassium Cancelled Chloride Cancelled Carbon Dioxide Cancelled Anion Gap Cancelled BUN Cancelled Est GFR ( Amer) Cancelled Est GFR (Non-Af Amer) Cancelled POC Glucose (mg/dL) 234 H Random Glucose Cancelled Calcium Cancelled Magnesium Cancelled Total Bilirubin Cancelled AST Cancelled ALT Cancelled Alkaline Phosphatase Cancelled Troponin I 0.0310 NT-Pro-B Natriuret Pep 451 Total Protein Cancelled Albumin Cancelled Globulin Cancelled Albumin/Globulin Ratio Cancelled - EKG Data EKG comments: Sinus Tachycardia 121/min - Imaging and Cardiology Chest x-ray Status: Image reviewed by me Additional comment: Persistent ill-defined opacity right base CT scan - chest Additional comment: CTA Chest No PE Bilateral Multifocal Bronchopneumonia Cardiomegaly Assessment & Plan - Assessment and Plan (Free Text) Plan: 83 years old female with hx of Asthma, DM II and Pneumonia, last admitted on 11/01/18 with diagnosis of Pneumonia. She comes with nightly SOB with wheezing for the past 2-3 nights, worse today. In the ED SpO2 was 82% on RA. #. Hypoxic respiratory failure. SpO2 82% RA - Patient placed on High flow O2 20L 50% - Follow ABG #. Asthmatic Crisis - Albuterol Q 4H and Q2H PRN - Methylprednisolone #. Multifocal Bronchopneumonia, probably Cryptogenic organising Pneumonia - Rocephin - Azithromycin - Methylprednisolone #. Hypertensive Urgency - Titrate IV Nitroglycerine - Cardizem #. DM II with hyperglycemia - Regular Insulin sliding scale according to accucheck ACHS - Hold Metformin for 48H #. Chronic Leg edema, probably due to venous insufficency - Elevate legs - Low dose Diuretics -wrap lower extremities with Donald bandage #. DVT Prophylaxis with SCD and Lovenox #. Code Status: Full - Date & Time Date: 12/26/18 Time: 19:44
[2018-12-26 19:59] LABS: INR 0.9; PROTHROMBIN TIME 10.5 Seconds (9.8-13.1)
[2018-12-26 20:02] LABS: PARTIAL THROMBOPLASTIN TIME 33.7 Seconds (25.6-37.1)
[2018-12-26 20:04] LABS: ALBUMIN 4.3 g/dL (3.5-5.0); ALT/SGPT 18 U/L (9-52); AST/SGOT 31 U/L (14-36); BLOOD UREA NITROGEN 14 mg/dl (7-17); CALCIUM 9.6 mg/dL (8.4-10.2); GFR NON-AFRICAN AMERICAN > 60
[2018-12-26] MEDS ORDERED: cefTRIAXone (Rocephin) 1 gm Inj ONE (20:31)
[2018-12-26] MEDS ORDERED: Albuterol 0.083% Inhal Sol (2.5 mg/3 mL) UD INH PRN (21:23)
[2018-12-26] MEDS ORDERED: Albuterol 0.083% Inhal Sol (2.5 mg/3 mL) UD INH STA (21:24)
[2018-12-26] MEDS ORDERED: Albuterol 0.083% Inhal Sol (2.5 mg/3 mL) UD ONE (22:07)
[2018-12-26] MEDS ORDERED: MethylPREDNISolone 40 mg Vial ONE (22:07)
[2018-12-26] MEDS ORDERED: Sodium Chloride 0.9% 50 ML IV ONE (22:09)
[2018-12-26] MEDS ORDERED: Iodixanol 320 MG/ML 100 ML BOTTLE IV ONE (22:09)
[2018-12-26] MEDS: MethylPREDNISolone 40 mg Vial IVP SCH (22:24)
[2018-12-27] MEDS ORDERED: Nitroglycerin 50mg in D5W 50 MG/250 ML BOTTLE IV ONE (00:01)
[2018-12-27] MEDS: diltiaZEM 120 mg/24 Hours CD Cap PO SCH ×2 (01:15→08:37)
[2018-12-27] MEDS: Albuterol 0.083% Inhal Sol (2.5 mg/3 mL) UD INH SCH ×5 (04:55→19:36)
[2018-12-27 05:33] LABS: BASO # 0.1 K/uL (0.0-0.2); BASO % 0.5 % (0.0-2.0); EOS % 0.1 % (0.0-4.0); HEMOGLOBIN 11.9 g/dL (12.0-16.0); LYMPH # 0.6 K/uL (1.0-4.3); MEAN CELL VOLUME 84.1 fl (81.0-99.0); MEAN CORPUSCULAR HEMOGLOBIN 26.8 pg (27.0-31.0); MEAN CORPUSCULAR HGB CONC 31.9 g/dL (33.0-37.0); MEAN PLATELET VOLUME 8.7 fl (7.2-11.7); MONO # 0.1 K/uL (0.0-0.8); MONO % 0.7 % (0.0-10.0); NEUT # 8.7 K/uL (1.8-7.0); NEUT % 92.7 % (50.0-75.0); PLATELET COUNT 231 K/uL (130-400); RBC 4.42 Mil/uL (3.80-5.20); RED CELL DISTRIBUTION WIDTH 15.2 % (11.5-14.5); WHITE BLOOD COUNT 9.4 K/uL (4.8-10.8)
[2018-12-27 05:43] LABS: BLOOD UREA NITROGEN 13 mg/dl (7-17); CALCIUM 8.9 mg/dL (8.4-10.2); GFR NON-AFRICAN AMERICAN > 60
[2018-12-27 06:07] LABS: ABG ALLEN TEST YES; ARTERIAL BLOOD GAS HCO3 27.5 mmol/L (21-28); ARTERIAL BLOOD GAS O2 SAT 99.5 % (95-98); ARTERIAL BLOOD GAS PCO2 48 mm/Hg (35-45); ARTERIAL BLOOD GAS PH 7.39 (7.35-7.45); ARTERIAL BLOOD GAS PO2 80 mm/Hg (80-100); ARTERIAL BLOOD GAS TCO2 30.6 mmol/L (22-28)
[2018-12-27] MEDS: Insulin Lispro (humaLOG) 100 Units/ml Inj SC SCH ×4 (06:36→22:22)
[2018-12-27] MEDS: MethylPREDNISolone 40 mg Vial IVP SCH ×3 (06:40→22:00)
[2018-12-27] MEDS: Enoxaparin 40 mg Syringe SC SCH (08:38)
[2018-12-27] MEDS ORDERED: Azithromycin 500 MG in Sodium Chloride 0.9% 250 ML IVPB SCH (09:00)
[2018-12-27] MEDS: Azithromycin 500 MG in Sodium Chloride 0.9% 250 ML IVPB SCH (09:35)
--- NOTE | 2018-12-27 10:06 | CP.PCM.HP ---
History of Present Illness - History of Present Illness History of Present Illness: 83 year old female with hx of Asthma, DM II and Pneumonia, last admitted on 11/01/18 with diagnosis of Pneumonia, with 3 days of dyspnea and wheezing that worsened. In the ED she was treated with bronchodilaters and Methylprednisolomne, but still continued with SOB. Patient seen and examined at bedside. Patient states improvement since admission though continues with SOB on O2 supplementation Denies cp, sob, palpitations, headaches, chills. meds: as per chart allergies: as per chart fam hx: non contributory Present on Admission - Present on Admission Any Indicators Present on Admission: Yes History of Uncontrolled Diabetes: Yes Review of Systems - Review of Systems All systems: reviewed and no additional remarkable complaints except (mentioned above) Past Patient History - Infectious Disease Hx of Infectious Diseases: None - Past Medical History & Family History Past Medical History?: Yes - Past Social History Smoking Status: Never Smoked Chewing Tobacco Use: Yes Cigar Use: Yes Alcohol: None Drugs: Denies - CARDIAC Hx Hypercholesterolemia: Yes (noncompliant w/meds) Hx Hypertension: Yes - PULMONARY Hx Asthma: Yes Hx Bronchitis: Yes Hx Pneumonia: Yes - NEUROLOGICAL Hx Neurological Disorder: No - HEENT Hx HEENT Problems: No - RENAL Hx Chronic Kidney Disease: No - ENDOCRINE/METABOLIC Hx Endocrine Disorders: Yes Hx Diabetes Mellitus Type 2: Yes - HEMATOLOGICAL/ONCOLOGICAL Hx Human Immunodeficiency Virus (HIV): No - INTEGUMENTARY Hx Dermatological Problems: No - MUSCULOSKELETAL/RHEUMATOLOGICAL Hx Musculoskeletal Disorders: No Hx Falls: No - GASTROINTESTINAL Hx Gastrointestinal Disorders: No - GENITOURINARY/GYNECOLOGICAL Hx Genitourinary Disorders: No - PSYCHIATRIC Hx Psychophysiologic Disorder: No Hx Substance Use: No - SURGICAL HISTORY Hx Appendectomy: Yes Hx Tonsillectomy: Yes - ANESTHESIA Hx Anesthesia: Yes Hx Anesthesia Reactions: No Hx Malignant Hyperthermia: No Meds Allergies/Adverse Reactions: Allergies Allergy/AdvReac Type Severity Reaction Status Date / Time codeine Allergy RASH Verified 12/26/18 15:21 Physical Exam - Constitutional Appears: Non-toxic, No Acute Distress - Head Exam Head Exam: NORMAL INSPECTION - Eye Exam Eye Exam: Normal appearance - Respiratory Exam Respiratory Exam: Decreased Breath Sounds (bases), Respiratory Distress (on o2) - Cardiovascular Exam Cardiovascular Exam: +S1, +S2 - GI/Abdominal Exam GI & Abdominal Exam: Soft - Neurological Exam Neurological exam: Alert, Oriented x3 - Psychiatric Exam Psychiatric exam: Normal Affect, Normal Mood - Skin Skin Exam: Normal Color, Warm Results - Vital Signs Recent Vital Signs: Last Vital Signs Temp 98.1 F 12/27/18 08:00 Pulse 94 H 12/27/18 09:50 Resp 19 12/27/18 09:00 BP 128/62 12/27/18 09:50 Pulse Ox 98 12/27/18 09:00 - Labs Result Diagrams: 12/27/18 04:50 12/27/18 04:50 Labs: Laboratory Results - last 24 hr 12/26/18 12/26/18 12/26/18 15:14 16:47 16:47 WBC 12.5 H D RBC 5.09 Hgb 13.5 D Hct 43.0 MCV 84.4 MCH 26.4 L MCHC 31.3 L RDW 15.4 H Plt Count 264 MPV 8.8 Neut % (Auto) 83.9 H Lymph % (Auto) 9.6 L [place] % (Auto) 5.8 Eos % (Auto) 0.1 Baso % (Auto) 0.6 Neut # (Auto) 10.5 H Lymph # (Auto) 1.2 [place] # (Auto) 0.7 Eos # (Auto) 0.0 Baso # (Auto) 0.1 Neutrophils % (Manual) 84 H Band Neutrophils % 2 Lymphocytes % (Manual) 9 L Monocytes % (Manual) 5 Platelet Estimate Normal PT INR APTT pCO2 pO2 HCO3 ABG pH ABG Total CO2 ABG O2 Saturation ABG Base Excess Quinn Test ABG Potassium A-a O2 Difference Glucose Lactate Vent Mode FiO2 Sodium Cancelled Potassium Cancelled Chloride Cancelled Carbon Dioxide Cancelled Anion Gap Cancelled BUN Cancelled Creatinine Est GFR ( Amer) Cancelled Est GFR (Non-Af Amer) Cancelled POC Glucose (mg/dL) 234 H Random Glucose Cancelled Calcium Cancelled Magnesium Cancelled Total Bilirubin Cancelled AST Cancelled ALT Cancelled Alkaline Phosphatase Cancelled Troponin I 0.0310 NT-Pro-B Natriuret Pep 451 Total Protein Cancelled Albumin Cancelled Globulin Cancelled Albumin/Globulin Ratio Cancelled Arterial Blood Potassium Influenza Typ A,B (EIA) 12/26/18 12/26/18 12/26/18 18:20 19:42 19:43 WBC RBC Hgb Hct MCV MCH MCHC RDW Plt Count MPV Neut % (Auto) Lymph % (Auto) [place] % (Auto) Eos % (Auto) Baso % (Auto) Neut # (Auto) Lymph # (Auto) [place] # (Auto) Eos # (Auto) Baso # (Auto) Neutrophils % (Manual) Band Neutrophils % Lymphocytes % (Manual) Monocytes % (Manual) Platelet Estimate PT 10.5 INR 0.9 APTT 33.7 pCO2 pO2 HCO3 ABG pH ABG Total CO2 ABG O2 Saturation ABG Base Excess Quinn Test ABG Potassium A-a O2 Difference Glucose Lactate Vent Mode FiO2 Sodium 140 Potassium 3.9 Chloride 101 Carbon Dioxide 25 Anion Gap 18 BUN 14 Creatinine 0.6 L Est GFR ( Amer) > 60 Est GFR (Non-Af Amer) > 60 POC Glucose (mg/dL) Random Glucose 239 H Calcium 9.6 Magnesium Total Bilirubin 0.3 AST 31 ALT 18 Alkaline Phosphatase 114 Troponin I NT-Pro-B Natriuret Pep Total Protein 8.6 H Albumin 4.3 Globulin 4.3 H Albumin/Globulin Ratio 1.0 Arterial Blood Potassium Influenza Typ A,B (EIA) Negative for flu a/b 12/27/18 12/27/18 12/27/18 04:50 04:50 05:20 WBC 9.4 RBC 4.42 Hgb 11.9 L Hct 37.2 MCV 84.1 MCH 26.8 L MCHC 31.9 L RDW 15.2 H Plt Count 231 MPV 8.7 Neut % (Auto) 92.7 H Lymph % (Auto) 6.0 L [place] % (Auto) 0.7 Eos % (Auto) 0.1 Baso % (Auto) 0.5 Neut # (Auto) 8.7 H Lymph # (Auto) 0.6 L [place] # (Auto) 0.1 Eos # (Auto) 0.0 Baso # (Auto) 0.1 Neutrophils % (Manual) Band Neutrophils % Lymphocytes % (Manual) Monocytes % (Manual) Platelet Estimate PT INR APTT pCO2 pO2 HCO3 ABG pH ABG Total CO2 ABG O2 Saturation ABG Base Excess Quinn Test ABG Potassium A-a O2 Difference Glucose Lactate Vent Mode FiO2 Sodium 137 Potassium 4.9 Chloride 103 Carbon Dioxide 26 Anion Gap 13 BUN 13 Creatinine 0.5 L Est GFR ( Amer) > 60 Est GFR (Non-Af Amer) > 60 POC Glucose (mg/dL) 203 H Random Glucose 219 H Calcium 8.9 Magnesium Total Bilirubin AST ALT Alkaline Phosphatase Troponin I NT-Pro-B Natriuret Pep Total Protein Albumin Globulin Albumin/Globulin Ratio Arterial Blood Potassium Influenza Typ A,B (EIA) 12/27/18 05:44 WBC RBC Hgb Hct MCV MCH MCHC RDW Plt Count MPV Neut % (Auto) Lymph % (Auto) [place] % (Auto) Eos % (Auto) Baso % (Auto) Neut # (Auto) Lymph # (Auto) [place] # (Auto) Eos # (Auto) Baso # (Auto) Neutrophils % (Manual) Band Neutrophils % Lymphocytes % (Manual) Monocytes % (Manual) Platelet Estimate PT INR APTT pCO2 48 H pO2 80 HCO3 27.5 ABG pH 7.39 ABG Total CO2 30.6 H ABG O2 Saturation 99.5 H ABG Base Excess 3.3 H Quinn Test Yes ABG Potassium 4.1 A-a O2 Difference 217.0 Glucose 224 H Lactate 1.9 Vent Mode High flow lpm FiO2 50.0 Sodium 138.0 Potassium Chloride 107.0 Carbon Dioxide Anion Gap BUN Creatinine Est GFR ( Amer) Est GFR (Non-Af Amer) POC Glucose (mg/dL) Random Glucose Calcium Magnesium Total Bilirubin AST ALT Alkaline Phosphatase Troponin I NT-Pro-B Natriuret Pep Total Protein Albumin Globulin Albumin/Globulin Ratio Arterial Blood Potassium 4.1 Influenza Typ A,B (EIA) Assessment & Plan (1) Acute respiratory distress Status: Acute (2) Pneumonia Status: Acute - Assessment and Plan (Free Text) Plan: monitor vitals monitor labs Cont meds Cont tx wean off o2 if possible pulm consult icu following consultants appreciated input rest of plan as ordered
--- NOTE | 2018-12-27 10:12 | CP.CCUPN ---
CCU Subjective - Physician Review Subjective (Free Text): Events overnight reviewed. No further need for Tridil infusion, BP low normal now, PO Cardizem started. Still relatively tachycardic, SPO2 100% on HFNC 50% 20 LPM. Denies any chest discomfort, dyspnea at rest, able to self-mobilize to sitting up position in bed with legs dangling. Other vitals and I/O's reviewed. Afebrile, no fever spikes, BP 120/76, HR 95, RR 17, Spo2 98% on HFNC. ROS: No other pertinent negs or positives on 10+ system review Allergies: Albuterol inh / Duoneb, Cardizem, Metformin, Singulair. Home Meds: none PMSFH: Drinks up to approx. 15 beers a day as tolerated. All other Nursing and physician documentation reviewed to date; no new pertinent info noted relevant to current medical problems. EXAM- HEENT: no icterus, no gaze preference, pupils non-constricted, no nystagmus NECK: no JVD visible, supple, carotids equal upstroke bilat/no bruit CHEST: decreased BS at the bases, no wheezes audible HEART: regular, distant, non-tachy S1S2, no rubs, no audible murmur ABD: soft, no distension, no focal tenderness, no tympany, no guarding, no organomegaly, BS hypoactive. EXT: no mottling; no calf tenderness or palpable cords, distal pulses intact and symmetrical, no cyanosis. NEURO: no gross focal motor deficits, no spasticity SKIN: no rashes, warm and dry LABS: WBC= 9.4 HGB= 11.8 PLTs= 231K Na= 137 K= 4.9 CL= 103 HCO3= 26 BUN/Cr= 13/0.5 BS= 219 Coags normal Trops neg x1 CXR; (my interp) bibasilar haziness and infiltrates. EKG: sinus 121, non-specific ST-T changes in III, AVF (my interp) IMPRESSION / MAJOR PROBLEMS NOW: 1. Acute Resp Insuff 2 Asthma Exacerbation with underlying bilat pneumonia 2. Accelerated HTN 3. DM II with Obesity PLAN: 1. Empiric abx coverage, would obtain Pulm consultation eval. 2. IV Steroids, DuoNebs Q4-6H, Montelukast resumed; follow serial CXR. Chest CT results reviewed, confirming bilat basilar PNA. 3. Try to wean down FiO2 as tolerated. No immediate need for MV support, on reserve for now. No Advance Directives. 4. Add cardio-selective BBlockers to supplement BP and HR control.
[2018-12-27 11:53] LABS: ANISOCYTOSIS SLIGHT; HYPOCHROMIC SLIGHT; LYMPHOCYTE 9 % (20-50); MONOCYTE 1 % (0-10); NEUTROPHIL 90 % (42-75); PLATELET ESTIMATE NORMAL (NORMAL); TOTAL CELLS COUNTED 100
--- NOTE | 2018-12-27 12:22 | CT ---
Date of service: 12/26/2018 PROCEDURE: CT Chest with contrast (Pulmonary Angiogram) HISTORY: Hypoxia/ basal infiltrate COMPARISON: Comparison made with chest radiograph 12/26/2018 TECHNIQUE: Axial computed tomography images were obtained of the chest in the pulmonary arterial phase of enhancement. Coronal and sagittal reformatted images were created and reviewed. Intravenous contrast dose: Radiation dose: Total exam DLP = 380.24 mGy-cm. This CT exam was performed using one or more of the following dose reduction techniques: Automated exposure control, adjustment of the mA and/or kV according to patient size, and/or use of iterative reconstruction technique. FINDINGS: PULMONARY ARTERIES: The visualized pulmonary trunk, right and left main, lobar segmental and proximal subsegmental branches of the pulmonary arteries are of are relatively well opacified with no definitive filling defects seen to suggest acute central pulmonary embolus. Pulmonary trunk measures approximately 3.1 cm AORTA: No thoracic aortic aneurysm. Ascending thoracic aorta measures approximate 3.3 cm and descending thoracic aorta measures approximately 2.25 cm no aortic atherosclerotic calcification or mural plaque present. LUNGS: There are patchy ground-glass opacities seen throughout the right upper, middle and lower lobes. More discrete consolidation changes are also noted in the lateral margin of the lateral segment right middle lobe abutting the pleural surface and to a lesser degree right posterior sulcus. Similar but less severe ground-glass opacities seen throughout the left upper and lower lobes. Minor left lower lobe atelectasis and/or scarring changes including the lingular region. PLEURAL SPACES: Unremarkable. No effusion or pneumothorax. HEART: Heart is enlarged. No significant pericardial effusion.. LYMPH NODES: No lymphadenopathy. No significant mediastinal or hilar adenopathy. Trachea is midline and patent with no large central endoluminal lesions. There is a small fat containing umbilical hernia. BONES, CHEST WALL: Mild multilevel degenerative spondylosis of the thoracic spine. There are no acute compression fractures no retropulsed fragments. OTHER FINDINGS: Unremarkable. IMPRESSION: No evidence of acute central pulmonary embolus. Cardiomegaly. Multifocal ground-glass opacities seen throughout the right upper middle and lower lobes with more dense consolidation changes seen in the right middle lobe and right lung base. Similar but less severe scattered ground-glass opacity seen throughout the left upper and lower lobes. Mild chronic atelectasis and or scarring changes left lung base including the lingular region. .
--- NOTE | 2018-12-27 13:38 | CARD ---
APPROVED REPORT Date of service: 12/26/2018 EKG Measurement Heart [id number] <Conclusion> Sinus tachycardia Possible Left atrial enlargement Nonspecific ST abnormality Abnormal ECG
[2018-12-28] MEDS: Albuterol 0.083% Inhal Sol (2.5 mg/3 mL) UD INH SCH ×8 (00:03→23:32)
[2018-12-28] MEDS: MethylPREDNISolone 40 mg Vial IVP SCH ×3 (05:04→21:39)
[2018-12-28] MEDS: Insulin Lispro (humaLOG) 100 Units/ml Inj SC SCH ×4 (06:32→21:46)
[2018-12-28] MEDS: diltiaZEM 120 mg/24 Hours CD Cap PO SCH (09:21)
[2018-12-28] MEDS: Enoxaparin 40 mg Syringe SC SCH (09:22)
[2018-12-28] MEDS: Azithromycin 500 MG in Sodium Chloride 0.9% 250 ML IVPB SCH (09:24)
[2018-12-28] MEDS ORDERED: Sodium Chloride 3% for Inhalation 4 ML VIAL.NEB IH PRN (11:16)
--- NOTE | 2018-12-28 14:43 | CON ---
DATE: 12/28/2018 HISTORY OF PRESENT ILLNESS: Ms. Antonio is an 83-year-old female who was referred for pulmonary evaluation by Dr. Paige. She was originally admitted through the Intensive Care Unit because of acute respiratory failure and referred for pulmonary evaluation. She had a recent discharge from [facility] in 10/2018 after treatment for pneumonia and acute exacerbation of asthma. PAST MEDICAL HISTORY: Remarkable for asthma, diabetes mellitus, hypertension, hyperlipidemia, diverticular disease, and pneumonia. FAMILY HISTORY: Nonrevealing. SOCIAL HISTORY: She does not smoke or drink, but indicates that she had copious amount of secondhand smoke exposure years ago. She is not compliant with her diet and medications. PHYSICAL EXAMINATION: GENERAL: The patient is presently alert and oriented. Daughter is at bedside and gives some of the history. She is on high-flow oxygen. VITAL SIGNS: Remarkable for blood pressure of 133/79, pulse of 80, respiratory rate 18 per minute. She is febrile. O2 sat is 100% on high-flow oxygen. SKIN: Shows fair turgor. HEENT: Pupils are equal reactive to light and accommodation. Mouth shows fair hygiene. JVP flat. LUNGS: Bilateral coarse scattered rales with dullness at the bases and poor aeration. HEART: Regular. ABDOMEN: Soft, nontender, no organomegaly. EXTREMITIES: 2+ pitting edema bilaterally. CENTRAL NERVOUS SYSTEM: Exam grossly intact. LABORATORY DATA: Remarkable for WBC on admission of 12.5, hemoglobin 13.5, platelet count of 264,000. ABGs, pH 7.39, pCO2 48, pO2 of 80, glucose of 224. Sodium 138, lactate 1.9, BUN 13, creatinine 0.5. Chest x-ray and CT scan of the chest both show bilateral multifocal ground-glass opacities throughout right upper lobe and lower lobes, more dense consolidation right middle lobe and right lung base similar but less severe scattered ground-glass opacities scattered throughout the left upper lobe and left lower lobe area, mild chronic atelectasis and scarring changes in left lung base and lingula. IMPRESSION: Acute respiratory failure, probably secondary to combination of pneumonia and mild congestive heart failure, history of hypertension, history of hyperlipidemia, history of poor compliance to medication and diet. PLAN: The plan is blood cultures, sputum cultures, aerosolized bronchodilators, oxygen, low-dose diuretics. We will continue to follow with you. Further therapy will depend on findings. The patient advised compliance to medication and diet. Sher Hickman MD
[2018-12-29] MEDS: MethylPREDNISolone 40 mg Vial IVP SCH ×3 (04:44→21:28)
[2018-12-29] MEDS: Albuterol 0.083% Inhal Sol (2.5 mg/3 mL) UD INH SCH ×6 (05:01→23:46)
[2018-12-29 05:12] LABS: ABG ALLEN TEST YES; ARTERIAL BLOOD GAS HCO3 28.1 mmol/L (21-28); ARTERIAL BLOOD GAS HEMOGLOBIN 12.7 g/dL (11.7-17.4); ARTERIAL BLOOD GAS O2 CAPACITY 17.7 mL/dL (16-24); ARTERIAL BLOOD GAS O2 CONTENT 17.7 ML/dL (15-23); ARTERIAL BLOOD GAS O2 SAT 100.1 % (95-98); ARTERIAL BLOOD GAS PCO2 45 mm/Hg (35-45); ARTERIAL BLOOD GAS PH 7.42 (7.35-7.45); ARTERIAL BLOOD GAS PO2 152 mm/Hg (80-100); ARTERIAL BLOOD GAS TCO2 30.6 mmol/L (22-28)
[2018-12-29] MEDS: Insulin Lispro (humaLOG) 100 Units/ml Inj SC SCH ×4 (06:34→21:25)
[2018-12-29] MEDS: Enoxaparin 40 mg Syringe SC SCH (09:14)
[2018-12-29] MEDS: diltiaZEM 120 mg/24 Hours CD Cap PO SCH (09:14)
[2018-12-29] MEDS: Azithromycin 500 MG in Sodium Chloride 0.9% 250 ML IVPB SCH (09:20)
--- NOTE | 2018-12-29 10:39 | CP.PCM.PN ---
Subjective - Date & Time of Evaluation Date of Evaluation: 12/29/18 Time of Evaluation: 10:40 - Subjective Subjective: SOB IMPROVING STILL WEAK NO CHEST PAINS COUGH LESS Objective - Vital Signs/Intake and Output Vital Signs (last 24 hours): Temp Pulse Resp BP Pulse Ox 97.4 F L 85 18 150/88 100 12/29/18 07:54 12/29/18 09:20 12/29/18 07:54 12/29/18 09:20 12/29/18 07:54 - Medications Medications: Current Medications Acetaminophen (Tylenol 325mg Tab) 650 mg PO Q4 PRN PRN Reason: Pain, Mild (1-3) Albuterol Sulfate (Albuterol 0.083% Inhal Merle (2.5 Mg/3 Ml) Ud) 2.5 mg INH RQ4 [facility] Last Admin: 12/29/18 07:53 Dose: 2.5 mg Albuterol Sulfate (Albuterol 0.083% Inhal Merle (2.5 Mg/3 Ml) Ud) 2.5 mg INH RQ2 PRN PRN Reason: Shortness of Breath Diltiazem HCl (Cardizem Cd) 120 mg PO DAILY [facility] Last Admin: 12/29/18 09:14 Dose: 120 mg Enoxaparin Sodium (Lovenox) 40 mg SC DAILY [facility]; Protocol Last Admin: 12/29/18 09:14 Dose: 40 mg Furosemide (Lasix) 20 mg IVP DAILY [facility] Last Admin: 12/29/18 09:20 Dose: 20 mg Azithromycin 500 mg/ Sodium (Chloride) 250 mls @ 250 mls/hr IVPB DAILY [facility]; Protocol Last Admin: 12/29/18 09:20 Dose: 250 mls/hr Ceftriaxone Sodium 1 gm/ (Sodium Chloride) 100 mls @ 100 mls/hr IVPB DAILY [facility]; Protocol Last Admin: 12/29/18 09:20 Dose: 100 mls/hr Insulin Human Lispro (Humalog) 0 units SC ACHS [facility]; Protocol Last Admin: 12/29/18 06:34 Dose: 4 unit Metformin HCl (Glucophage) 500 mg PO BID [facility] Methylprednisolone (Solu-Medrol) 40 mg IVP Q8H [facility] Last Admin: 12/29/18 04:44 Dose: 40 mg Metoprolol Tartrate (Lopressor) 50 mg PO Q12 [facility] Last Admin: 12/29/18 09:20 Dose: 50 mg Montelukast Sodium (Singulair) 10 mg PO DAILY [facility] Last Admin: 12/29/18 09:15 Dose: 10 mg - Labs Labs: 12/27/18 04:50 12/27/18 04:50 PT 10.5 Seconds (9.8-13.1) 12/26/18 19:42 INR 0.9 12/26/18 19:42 APTT 33.7 Seconds (25.6-37.1) 12/26/18 19:42 - Constitutional Appears: No Acute Distress - Head Exam Head Exam: ATRAUMATIC, NORMAL INSPECTION, NORMOCEPHALIC - Eye Exam Eye Exam: EOMI, Normal appearance, PERRL Pupil Exam: NORMAL ACCOMODATION, PERRL - ENT Exam ENT Exam: Mucous Membranes Moist, Normal Exam - Neck Exam Neck Exam: Full ROM, Normal Inspection. absent: Lymphadenopathy - Respiratory Exam Respiratory Exam: Decreased Breath Sounds, Prolonged Expiratory Phase, Rales Additional comments: ON HIGH FLOW O2 - Cardiovascular Exam Cardiovascular Exam: REGULAR RHYTHM, +S1, +S2. absent: Murmur - GI/Abdominal Exam GI & Abdominal Exam: Soft, Normal Bowel Sounds. absent: Tenderness - Rectal Exam Rectal Exam: NORMAL INSPECTION - Extremities Exam Extremities Exam: Full ROM, Normal Capillary Refill, Pedal Edema. absent: Joint Swelling - Back Exam Back Exam: NORMAL INSPECTION - Neurological Exam Neurological Exam: Alert, Awake, CN II-XII Intact, Normal Gait, Oriented x3 - Psychiatric Exam Psychiatric exam: Normal Affect, Normal Mood - Skin Skin Exam: Dry, Intact, Normal Color, Warm Assessment and Plan - Assessment and Plan (Free Text) Assessment: PNEUMONIA/CHF HTN RESP FAILURE IMPROVED Plan: D/C HIGH FLOW O2 BEGIN O2 VIA NC
--- NOTE | 2018-12-29 12:42 | RAD ---
Date of service: 12/29/2018 PROCEDURE: CHEST RADIOGRAPH, 1 VIEW HISTORY: PNEUMONIA COMPARISON: Chest radiograph dated 12/26/2018. FINDINGS: LUNGS: Clear. PLEURA: No pneumothorax or pleural fluid seen. CARDIOVASCULAR: Aortic atherosclerotic calcifications. Cardiomediastinal silhouette stably enlarged. OSSEOUS STRUCTURES: Unchanged. VISUALIZED UPPER ABDOMEN: Normal. OTHER FINDINGS: None. IMPRESSION: No active disease.
[2018-12-30] MEDS: MethylPREDNISolone 40 mg Vial IVP SCH ×3 (04:37→21:38)
[2018-12-30] MEDS: Albuterol 0.083% Inhal Sol (2.5 mg/3 mL) UD INH SCH ×6 (05:00→23:26)
[2018-12-30] MEDS: Insulin Lispro (humaLOG) 100 Units/ml Inj SC SCH ×4 (06:33→21:34)
[2018-12-30 06:52] LABS: BASO % 0.1 % (0.0-2.0); HEMOGLOBIN 11.4 g/dL (12.0-16.0); LYMPH # 0.5 K/uL (1.0-4.3); LYMPH % 10.7 % (20.0-40.0); MEAN CELL VOLUME 83.6 fl (81.0-99.0); MEAN CORPUSCULAR HEMOGLOBIN 26.8 pg (27.0-31.0); MEAN CORPUSCULAR HGB CONC 32.1 g/dL (33.0-37.0); MEAN PLATELET VOLUME 9.4 fl (7.2-11.7); MONO # 0.1 K/uL (0.0-0.8); MONO % 2.6 % (0.0-10.0); NEUT # 4.3 K/uL (1.8-7.0); NEUT % 86.6 % (50.0-75.0); NRBC % 0.1 % (0.0-0.0); RBC 4.25 Mil/uL (3.80-5.20); RED CELL DISTRIBUTION WIDTH 15.4 % (11.5-14.5)
[2018-12-30 07:13] LABS: ALBUMIN 3.3 g/dL (3.5-5.0); ALT/SGPT 48 U/L (9-52); AST/SGOT 27 U/L (14-36); BLOOD UREA NITROGEN 22 mg/dl (7-17); CALCIUM 9.1 mg/dL (8.4-10.2); GFR NON-AFRICAN AMERICAN > 60
[2018-12-30] MEDS: diltiaZEM 120 mg/24 Hours CD Cap PO SCH (09:15)
[2018-12-30] MEDS: Enoxaparin 40 mg Syringe SC SCH (09:16)
[2018-12-30] MEDS: Azithromycin 500 MG in Sodium Chloride 0.9% 250 ML IVPB SCH (09:24)
--- NOTE | 2018-12-30 11:40 | CP.PCM.PN ---
Subjective - Date & Time of Evaluation Date of Evaluation: 12/30/18 Time of Evaluation: 11:40 - Subjective Subjective: CLINICALLY IMPROVING SOB LESS PEDAL EDEMA LESS Objective - Vital Signs/Intake and Output Vital Signs (last 24 hours): Temp Pulse Resp BP Pulse Ox 97.6 F 71 18 144/87 100 12/30/18 09:00 12/30/18 09:15 12/30/18 11:10 12/30/18 09:25 12/30/18 09:00 - Medications Medications: Current Medications Acetaminophen (Tylenol 325mg Tab) 650 mg PO Q4 PRN PRN Reason: Pain, Mild (1-3) Last Admin: 12/29/18 10:44 Dose: 650 mg Albuterol Sulfate (Albuterol 0.083% Inhal Merle (2.5 Mg/3 Ml) Ud) 2.5 mg INH RQ4 [facility] Last Admin: 12/30/18 11:10 Dose: 2.5 mg Albuterol Sulfate (Albuterol 0.083% Inhal Merle (2.5 Mg/3 Ml) Ud) 2.5 mg INH RQ2 PRN PRN Reason: Shortness of Breath Diltiazem HCl (Cardizem Cd) 120 mg PO DAILY [facility] Last Admin: 12/30/18 09:15 Dose: 120 mg Enoxaparin Sodium (Lovenox) 40 mg SC DAILY [facility]; Protocol Last Admin: 12/30/18 09:16 Dose: 40 mg Furosemide (Lasix) 20 mg IVP DAILY [facility] Last Admin: 12/30/18 09:25 Dose: 20 mg Azithromycin 500 mg/ Sodium (Chloride) 250 mls @ 250 mls/hr IVPB DAILY [facility]; Protocol Last Admin: 12/30/18 09:24 Dose: 250 mls/hr Ceftriaxone Sodium 1 gm/ (Sodium Chloride) 100 mls @ 100 mls/hr IVPB DAILY [facility]; Protocol Last Admin: 12/30/18 09:17 Dose: 100 mls/hr Insulin Human Lispro (Humalog) 0 units SC ACHS [facility]; Protocol Last Admin: 12/30/18 06:33 Dose: 4 unit Metformin HCl (Glucophage) 500 mg PO BID [facility] Methylprednisolone (Solu-Medrol) 40 mg IVP Q8H [facility] Last Admin: 12/30/18 04:37 Dose: 40 mg Metoprolol Tartrate (Lopressor) 50 mg PO Q12 [facility] Last Admin: 12/30/18 09:15 Dose: 50 mg Montelukast Sodium (Singulair) 10 mg PO DAILY [facility] Last Admin: 12/30/18 09:16 Dose: 10 mg - Labs Labs: 12/30/18 04:55 12/30/18 04:55 PT 10.5 Seconds (9.8-13.1) 12/26/18 19:42 INR 0.9 12/26/18 19:42 APTT 33.7 Seconds (25.6-37.1) 12/26/18 19:42 - Constitutional Appears: No Acute Distress - Head Exam Head Exam: ATRAUMATIC, NORMAL INSPECTION, NORMOCEPHALIC - Eye Exam Eye Exam: EOMI, Normal appearance, PERRL Pupil Exam: NORMAL ACCOMODATION, PERRL - ENT Exam ENT Exam: Mucous Membranes Moist, Normal Exam - Neck Exam Neck Exam: Full ROM, Normal Inspection. absent: Lymphadenopathy - Respiratory Exam Respiratory Exam: Clear to Ausculation Bilateral, Prolonged Expiratory Phase, NORMAL BREATHING PATTERN - Cardiovascular Exam Cardiovascular Exam: REGULAR RHYTHM, +S1, +S2. absent: Murmur - GI/Abdominal Exam GI & Abdominal Exam: Soft, Normal Bowel Sounds. absent: Tenderness - Rectal Exam Rectal Exam: NORMAL INSPECTION - Extremities Exam Extremities Exam: Full ROM, Normal Capillary Refill, Normal Inspection, Pedal Edema. absent: Joint Swelling - Back Exam Back Exam: NORMAL INSPECTION - Neurological Exam Neurological Exam: Alert, Awake, CN II-XII Intact, Normal Gait, Oriented x3 - Psychiatric Exam Psychiatric exam: Normal Affect, Normal Mood - Skin Skin Exam: Dry, Intact, Normal Color, Warm Assessment and Plan - Assessment and Plan (Free Text) Assessment: RESPIRATORY FAILURE RESOLVED Plan: CHANGE O2 TO NC INCREASE ACTIVITY
--- NOTE | 2018-12-30 11:42 | RAD ---
Date of service: 12/30/2018 PROCEDURE: CHEST RADIOGRAPH, 1 VIEW HISTORY: CHF, PNA COMPARISON: Chest radiograph dated 12/29/2018. FINDINGS: LUNGS: Questionable right basilar opacity. PLEURA: No pneumothorax or pleural fluid seen. CARDIOVASCULAR: Aortic atherosclerotic calcifications. Cardiomediastinal silhouette stably enlarged. OSSEOUS STRUCTURES: Unchanged. VISUALIZED UPPER ABDOMEN: Normal. OTHER FINDINGS: None. IMPRESSION: Questionable right basilar opacity.
--- NOTE | 2018-12-31 03:01 | CP.PCM.PN ---
Subjective - Date & Time of Evaluation Date of Evaluation: 12/29/18 Time of Evaluation: 11:30 - Subjective Subjective: Pt seen and assessed at bedside. Reports improving respiratory status, however still gets short of breath on exertion. Plan of care discussed with staff. Review of Systems - Review of Systems All systems: reviewed and no additional remarkable complaints except (short of breath on exertion) Objective - Vital Signs/Intake and Output Vital Signs (last 24 hours): Temp Pulse Resp BP Pulse Ox 97.2 F L 62 20 127/79 99 12/31/18 00:39 12/31/18 00:39 12/31/18 00:39 12/31/18 00:39 12/31/18 00:39 - Medications Medications: Current Medications Acetaminophen (Tylenol 325mg Tab) 650 mg PO Q4 PRN PRN Reason: Pain, Mild (1-3) Last Admin: 12/29/18 10:44 Dose: 650 mg Albuterol Sulfate (Albuterol 0.083% Inhal Merle (2.5 Mg/3 Ml) Ud) 2.5 mg INH RQ4 [facility] Last Admin: 12/30/18 23:26 Dose: 2.5 mg Albuterol Sulfate (Albuterol 0.083% Inhal Merle (2.5 Mg/3 Ml) Ud) 2.5 mg INH RQ2 PRN PRN Reason: Shortness of Breath Diltiazem HCl (Cardizem Cd) 120 mg PO DAILY [facility] Last Admin: 12/30/18 09:15 Dose: 120 mg Enoxaparin Sodium (Lovenox) 40 mg SC DAILY [facility]; Protocol Last Admin: 12/30/18 09:16 Dose: 40 mg Azithromycin 500 mg/ Sodium (Chloride) 250 mls @ 250 mls/hr IVPB DAILY [facility]; Protocol Last Admin: 12/30/18 09:24 Dose: 250 mls/hr Ceftriaxone Sodium 1 gm/ (Sodium Chloride) 100 mls @ 100 mls/hr IVPB DAILY [facility]; Protocol Last Admin: 12/30/18 09:17 Dose: 100 mls/hr Insulin Human Lispro (Humalog) 0 units SC ACHS [facility]; Protocol Last Admin: 12/30/18 21:34 Dose: Not Given Metformin HCl (Glucophage) 500 mg PO BID [facility] Methylprednisolone (Solu-Medrol) 40 mg IVP Q8H [facility] Last Admin: 12/30/18 21:38 Dose: 40 mg Metoprolol Tartrate (Lopressor) 50 mg PO Q12 [facility] Last Admin: 12/30/18 21:38 Dose: 50 mg Montelukast Sodium (Singulair) 10 mg PO DAILY [facility] Last Admin: 12/30/18 09:16 Dose: 10 mg - Labs Labs: 12/30/18 04:55 12/30/18 04:55 PT 10.5 Seconds (9.8-13.1) 12/26/18 19:42 INR 0.9 12/26/18 19:42 APTT 33.7 Seconds (25.6-37.1) 12/26/18 19:42 - Constitutional Appears: Well - Head Exam Head Exam: ATRAUMATIC, NORMAL INSPECTION, NORMOCEPHALIC - Eye Exam Eye Exam: EOMI, Normal appearance, PERRL Pupil Exam: NORMAL ACCOMODATION, PERRL - ENT Exam ENT Exam: Mucous Membranes Moist, Normal Exam - Neck Exam Neck Exam: Full ROM, Normal Inspection - Respiratory Exam Respiratory Exam: Decreased Breath Sounds Additional comments: decreased breath sounds with mild expiratory wheeze. - Cardiovascular Exam Cardiovascular Exam: REGULAR RHYTHM, +S1, +S2 - GI/Abdominal Exam GI & Abdominal Exam: Soft, Normal Bowel Sounds - Extremities Exam Extremities Exam: Full ROM, Normal Capillary Refill, Normal Inspection - Back Exam Back Exam: NORMAL INSPECTION - Neurological Exam Neurological Exam: Alert, Awake, Oriented x3 - Psychiatric Exam Psychiatric exam: Normal Affect, Normal Mood - Skin Skin Exam: Dry, Normal Color, Warm Assessment and Plan (1) Acute respiratory distress Assessment & Plan: 1.) Acute Respiratory Distress -Resp distress has improved. -pulmonology consult input appreciated. -Spoke at length with pt about home inhalers, including maintenance therapy and rescue inhalers. Pt seemed to be confused about which inhalers she is supposed to use at home. Education was provided. -Ha on board. -Pt maintained on solumedrol 40 mg Q8h. -Serial CXR's to be done. Status: Acute
[2018-12-31] MEDS: Albuterol 0.083% Inhal Sol (2.5 mg/3 mL) UD INH SCH ×6 (04:47→23:45)
[2018-12-31] MEDS: MethylPREDNISolone 40 mg Vial IVP SCH ×3 (04:49→21:16)
[2018-12-31] MEDS: Insulin Lispro (humaLOG) 100 Units/ml Inj SC SCH ×4 (06:32→21:22)
--- NOTE | 2018-12-31 08:49 | CP.PCM.PN ---
Subjective - Date & Time of Evaluation Date of Evaluation: 12/31/18 Time of Evaluation: 08:50 - Subjective Subjective: SOB IMPROVED NO CHEST PAINS OR COUGH O2 SAT ADEQUATE Objective - Vital Signs/Intake and Output Vital Signs (last 24 hours): Temp Pulse Resp BP Pulse Ox 97.9 F 67 18 143/84 97 12/31/18 08:45 12/31/18 08:45 12/31/18 08:45 12/31/18 08:45 12/31/18 08:45 - Medications Medications: Current Medications Acetaminophen (Tylenol 325mg Tab) 650 mg PO Q4 PRN PRN Reason: Pain, Mild (1-3) Last Admin: 12/29/18 10:44 Dose: 650 mg Albuterol Sulfate (Albuterol 0.083% Inhal Merle (2.5 Mg/3 Ml) Ud) 2.5 mg INH RQ4 [facility] Last Admin: 12/31/18 04:47 Dose: 2.5 mg Albuterol Sulfate (Albuterol 0.083% Inhal Merle (2.5 Mg/3 Ml) Ud) 2.5 mg INH RQ2 PRN PRN Reason: Shortness of Breath Diltiazem HCl (Cardizem Cd) 120 mg PO DAILY [facility] Last Admin: 12/30/18 09:15 Dose: 120 mg Enoxaparin Sodium (Lovenox) 40 mg SC DAILY [facility]; Protocol Last Admin: 12/30/18 09:16 Dose: 40 mg Azithromycin 500 mg/ Sodium (Chloride) 250 mls @ 250 mls/hr IVPB DAILY [facility]; Protocol Last Admin: 12/30/18 09:24 Dose: 250 mls/hr Ceftriaxone Sodium 1 gm/ (Sodium Chloride) 100 mls @ 100 mls/hr IVPB DAILY [facility]; Protocol Last Admin: 12/30/18 09:17 Dose: 100 mls/hr Insulin Human Lispro (Humalog) 0 units SC ACHS [facility]; Protocol Last Admin: 12/31/18 06:32 Dose: 4 unit Metformin HCl (Glucophage) 500 mg PO BID [facility] Methylprednisolone (Solu-Medrol) 40 mg IVP Q8H [facility] Last Admin: 12/31/18 04:49 Dose: 40 mg Metoprolol Tartrate (Lopressor) 50 mg PO Q12 [facility] Last Admin: 12/30/18 21:38 Dose: 50 mg Montelukast Sodium (Singulair) 10 mg PO DAILY [facility] Last Admin: 12/30/18 09:16 Dose: 10 mg - Labs Labs: 12/30/18 04:55 12/30/18 04:55 PT 10.5 Seconds (9.8-13.1) 12/26/18 19:42 INR 0.9 12/26/18 19:42 APTT 33.7 Seconds (25.6-37.1) 12/26/18 19:42 - Constitutional Appears: No Acute Distress - Head Exam Head Exam: ATRAUMATIC, NORMAL INSPECTION, NORMOCEPHALIC - Eye Exam Eye Exam: EOMI, Normal appearance, PERRL Pupil Exam: NORMAL ACCOMODATION, PERRL - ENT Exam ENT Exam: Mucous Membranes Moist, Normal Exam - Neck Exam Neck Exam: Full ROM, Normal Inspection. absent: Lymphadenopathy - Respiratory Exam Respiratory Exam: Clear to Ausculation Bilateral, Prolonged Expiratory Phase, NORMAL BREATHING PATTERN - Cardiovascular Exam Cardiovascular Exam: REGULAR RHYTHM, +S1, +S2. absent: Murmur - GI/Abdominal Exam GI & Abdominal Exam: Soft, Normal Bowel Sounds. absent: Tenderness - Rectal Exam Rectal Exam: NORMAL INSPECTION - Extremities Exam Extremities Exam: Full ROM, Normal Capillary Refill, Normal Inspection. absent: Joint Swelling, Pedal Edema - Back Exam Back Exam: NORMAL INSPECTION - Neurological Exam Neurological Exam: Alert, Awake, CN II-XII Intact, Normal Gait, Oriented x3 - Psychiatric Exam Psychiatric exam: Normal Affect, Normal Mood - Skin Skin Exam: Dry, Intact, Normal Color, Warm Assessment and Plan - Assessment and Plan (Free Text) Assessment: RESP FAILURE IMPROVED ASTHMA IMPROVED Plan: NO FURTHER PULMONARY INTERVENTION FOR NOW WILL SIGN OFF CASE AND SEE AGAIN AT YOUR REQUEST
[2018-12-31] MEDS: Enoxaparin 40 mg Syringe SC SCH (09:30)
[2018-12-31] MEDS: diltiaZEM 120 mg/24 Hours CD Cap PO SCH (09:46)
[2018-12-31] MEDS: Azithromycin 500 MG in Sodium Chloride 0.9% 250 ML IVPB SCH (09:49)
--- NOTE | 2018-12-31 09:51 | CP.PCM.PCO ---
Assessment/Plan - Assessment/Plan Assessment (Free Text): Patient seen and examined this morning. In no acute distress, denies cough, chest pain. VSS. Discussed with Dr Hickman, off hi flow, on 2LNC, improving in respiratory status. Will refer patient to TCU for continuation of IV antibiotics, taper of steroids for a total of 10 days Day 5 today. Physical therapy ordered for today. - Consults Consult Orders: Consultations 12/27/18 08:00 Pastoral Care Referral Routine Comment: Physician Instructions: Reason For Exam: screen and teach - Problems Patient Problems: Problem List (Active/Current) Problem Status Onset Code Acute respiratory distress Acute R06.03 Hypertension Acute I10
--- NOTE | 2018-12-31 12:06 | CP.PCM.PN ---
Subjective - Date & Time of Evaluation Date of Evaluation: 12/28/18 Time of Evaluation: 11:20 - Subjective Subjective: Patient feels a lot better. Noted normal probnp CXR shows no sx of congestion. Has no fever. Noted elevated FBS On steroids. Objective - Vital Signs/Intake and Output Vital Signs (last 24 hours): Temp Pulse Resp BP Pulse Ox 97.9 F 67 18 143/84 97 12/31/18 08:45 12/31/18 09:47 12/31/18 08:45 12/31/18 09:47 12/31/18 08:45 - Medications Medications: Current Medications Acetaminophen (Tylenol 325mg Tab) 650 mg PO Q4 PRN PRN Reason: Pain, Mild (1-3) Last Admin: 12/29/18 10:44 Dose: 650 mg Albuterol Sulfate (Albuterol 0.083% Inhal Merle (2.5 Mg/3 Ml) Ud) 2.5 mg INH RQ4 [facility] Last Admin: 12/31/18 11:44 Dose: 2.5 mg Albuterol Sulfate (Albuterol 0.083% Inhal Merle (2.5 Mg/3 Ml) Ud) 2.5 mg INH RQ2 PRN PRN Reason: Shortness of Breath Diltiazem HCl (Cardizem Cd) 120 mg PO DAILY [facility] Last Admin: 12/31/18 09:46 Dose: 120 mg Enoxaparin Sodium (Lovenox) 40 mg SC DAILY [facility]; Protocol Last Admin: 12/30/18 09:16 Dose: 40 mg Azithromycin 500 mg/ Sodium (Chloride) 250 mls @ 250 mls/hr IVPB DAILY [facility]; Protocol Last Admin: 12/31/18 09:49 Dose: 250 mls/hr Ceftriaxone Sodium 1 gm/ (Sodium Chloride) 100 mls @ 100 mls/hr IVPB DAILY [facility]; Protocol Last Admin: 12/31/18 09:48 Dose: 100 mls/hr Insulin Human Lispro (Humalog) 0 units SC ACHS [facility]; Protocol Last Admin: 12/31/18 06:32 Dose: 4 unit Metformin HCl (Glucophage) 1,000 mg PO BIDWM [facility] Methylprednisolone (Solu-Medrol) 40 mg IVP Q8H [facility] Last Admin: 12/31/18 04:49 Dose: 40 mg Metoprolol Tartrate (Lopressor) 50 mg PO Q12 [facility] Last Admin: 12/31/18 09:47 Dose: 50 mg Montelukast Sodium (Singulair) 10 mg PO DAILY [facility] Last Admin: 12/31/18 09:47 Dose: 10 mg - Labs Labs: 12/30/18 04:55 12/30/18 04:55 PT 10.5 Seconds (9.8-13.1) 12/26/18 19:42 INR 0.9 12/26/18 19:42 APTT 33.7 Seconds (25.6-37.1) 12/26/18 19:42 - Eye Exam Eye Exam: Normal appearance - ENT Exam ENT Exam: Mucous Membranes Moist - Respiratory Exam Respiratory Exam: Decreased Breath Sounds, Wheezes - Cardiovascular Exam Cardiovascular Exam: REGULAR RHYTHM - GI/Abdominal Exam GI & Abdominal Exam: Normal Bowel Sounds - Neurological Exam Neurological Exam: Awake, Oriented x3 Assessment and Plan (1) Asthma Status: Acute (2) Hypertension Status: Acute (3) Diabetes mellitus type 2 in obese Status: Acute - Assessment and Plan (Free Text) Plan: Cont meds taper steroidadjust po hypoglycemics insulin prn for covergae
--- NOTE | 2018-12-31 18:29 | CP.PCM.PN ---
Subjective - Date & Time of Evaluation Date of Evaluation: 12/31/18 Time of Evaluation: 10:00 - Subjective Subjective: patient seen and examined at bedside. Interim events noted No complaints offered at this time On O2 supplementation denies cp/sob/fever/chills. available diagnostic data reviewed Review of Systems All systems: reviewed and no additional remarkable complaints except mentioned above Objective Vital Signs Stable - Constitutional Appears: Non-toxic, No Acute Distress Head Exam: NORMAL INSPECTION Eye Exam: Normal appearance Respiratory Exam: NORMAL BREATHING PATTERN with O2 supplementation Cardiovascular Exam: +S1, +S2 GI & Abdominal Exam: Soft Neurological Exam: Alert, Awake Psychiatric exam: Normal Affect, Normal Mood Skin Exam: Normal Color, Warm Assessment and Plan monitor vitals monitor labs Cont meds Cont tx consultants appreciated input rest of plan as ordered Assessment and Plan (1) Acute respiratory distress Status: Acute (2) Pneumonia Status: Acute
--- NOTE | 2018-12-31 23:43 | CP.PCM.PN ---
Subjective - Date & Time of Evaluation Date of Evaluation: 12/30/18 Time of Evaluation: 12:00 - Subjective Subjective: Pt seen and assessed at bedside. Reports improving shortness of breath and appetite. Still experiences dyspnea on exertion. Plan of care discussed with staff; labs, meds, and chart reviewed. Review of Systems - Review of Systems All systems: reviewed and no additional remarkable complaints except - Respiratory Respiratory: Dyspnea on Exertion Objective - Vital Signs/Intake and Output Vital Signs (last 24 hours): Temp Pulse Resp BP Pulse Ox 98.1 F 73 20 121/78 97 12/31/18 19:58 12/31/18 21:16 12/31/18 19:58 12/31/18 21:16 12/31/18 19:58 - Medications Medications: Current Medications Acetaminophen (Tylenol 325mg Tab) 650 mg PO Q4 PRN PRN Reason: Pain, Mild (1-3) Last Admin: 12/29/18 10:44 Dose: 650 mg Albuterol Sulfate (Albuterol 0.083% Inhal Merle (2.5 Mg/3 Ml) Ud) 2.5 mg INH RQ4 [facility] Last Admin: 12/31/18 19:19 Dose: 2.5 mg Albuterol Sulfate (Albuterol 0.083% Inhal Merle (2.5 Mg/3 Ml) Ud) 2.5 mg INH RQ2 PRN PRN Reason: Shortness of Breath Diltiazem HCl (Cardizem Cd) 120 mg PO DAILY [facility] Last Admin: 12/31/18 09:46 Dose: 120 mg Enoxaparin Sodium (Lovenox) 40 mg SC DAILY [facility]; Protocol Last Admin: 12/31/18 09:30 Dose: 40 mg Azithromycin 500 mg/ Sodium (Chloride) 250 mls @ 250 mls/hr IVPB DAILY [facility]; Protocol Last Admin: 12/31/18 09:49 Dose: 250 mls/hr Ceftriaxone Sodium 1 gm/ (Sodium Chloride) 100 mls @ 100 mls/hr IVPB DAILY [facility]; Protocol Last Admin: 12/31/18 09:48 Dose: 100 mls/hr Insulin Human Lispro (Humalog) 0 units SC ACHS [facility]; Protocol Last Admin: 12/31/18 21:22 Dose: 3 unit Metformin HCl (Glucophage) 1,000 mg PO BIDWM [facility] Last Admin: 12/31/18 16:58 Dose: 1,000 mg Metformin HCl (Glucophage) 1,000 mg PO BIDWM [facility] Last Admin: 12/31/18 17:01 Dose: Not Given Methylprednisolone (Solu-Medrol) 40 mg IVP Q8H [facility] Last Admin: 12/31/18 21:16 Dose: 40 mg Metoprolol Tartrate (Lopressor) 50 mg PO Q12 [facility] Last Admin: 12/31/18 21:16 Dose: 50 mg Montelukast Sodium (Singulair) 10 mg PO DAILY [facility] Last Admin: 12/31/18 09:47 Dose: 10 mg Sitagliptin Phosphate (Januvia) 100 mg PO DAILY [facility] Last Admin: 12/31/18 14:19 Dose: 100 mg - Labs Labs: 12/30/18 04:55 12/30/18 04:55 PT 10.5 Seconds (9.8-13.1) 12/26/18 19:42 INR 0.9 12/26/18 19:42 APTT 33.7 Seconds (25.6-37.1) 12/26/18 19:42 - Constitutional Appears: Well - Head Exam Head Exam: ATRAUMATIC, NORMAL INSPECTION, NORMOCEPHALIC - Eye Exam Eye Exam: EOMI, Normal appearance, PERRL Pupil Exam: NORMAL ACCOMODATION, PERRL - ENT Exam ENT Exam: Mucous Membranes Moist - Neck Exam Neck Exam: Full ROM, Normal Inspection - Respiratory Exam Respiratory Exam: Decreased Breath Sounds, Wheezes - Cardiovascular Exam Cardiovascular Exam: REGULAR RHYTHM, +S1, +S2 - GI/Abdominal Exam GI & Abdominal Exam: Soft, Normal Bowel Sounds - Extremities Exam Extremities Exam: Full ROM, Normal Capillary Refill, Normal Inspection - Back Exam Back Exam: Full ROM, NORMAL INSPECTION - Neurological Exam Neurological Exam: Alert, Awake, CN II-XII Intact, Oriented x3 - Psychiatric Exam Psychiatric exam: Normal Affect, Normal Mood - Skin Skin Exam: Dry, Normal Color, Warm Assessment and Plan (1) Acute respiratory distress Assessment & Plan: 1.) Acute Respiratory Distress -Respiratory status has improved. -pulmonology consult input appreciated. -Begin to taper steroids. -continue antibiotics. -duonebs PRN for shortness of breath. Status: Acute
[2019-01-01] MEDS: Albuterol 0.083% Inhal Sol (2.5 mg/3 mL) UD INH SCH ×3 (04:53→11:05)
[2019-01-01] MEDS: MethylPREDNISolone 40 mg Vial IVP SCH ×2 (06:30→12:35)
[2019-01-01] MEDS: Insulin Lispro (humaLOG) 100 Units/ml Inj SC SCH ×2 (06:32→12:26)
[2019-01-01] MEDS: Enoxaparin 40 mg Syringe SC SCH (08:32)
[2019-01-01] MEDS: diltiaZEM 120 mg/24 Hours CD Cap PO SCH (08:33)
[2019-01-01] MEDS: Azithromycin 500 MG in Sodium Chloride 0.9% 250 ML IVPB SCH (08:34)
[2019-01-01 12:20] VITALS: BP 115/72; PULSE 78; RESP 20; TEMP 97.7; O2SAT 99
--- NOTE | 2019-01-01 22:38 | CP.PCM.DIS ---
Provider - Provider Date of Admission: 12/26/18 18:03 Attending physician: Jose Paige MD Consults: 12/27/18 08:00 Pastoral Care Referral Routine Comment: Physician Instructions: Reason For Exam: screen and teach 12/27/18 18:10 Pulmonology Consult Routine Comment: Consulting Provider: Sher Hickman I Consulting Physician: Sher Hickman I Reason for Consult: PNA, RESP DISTRESS Time Spent in preparation of Discharge (in minutes): 30 Diagnosis - Discharge Diagnosis (1) Asthma Status: Acute (2) Hypertension Status: Acute (3) Diabetes mellitus type 2 in obese Status: Acute Hospital Course - Lab Results Lab Results: Micro Results 12/27/18 09:00 Naris MRSA Culture (Admit) - Final MRSA NOT DETECTED Most Recent Lab Values WBC 5.0 K/uL (4.8-10.8) 12/30/18 04:55 RBC 4.25 Mil/uL (3.80-5.20) 12/30/18 04:55 Hgb 11.4 g/dL (12.0-16.0) L 12/30/18 04:55 Hct 35.6 % (34.0-47.0) 12/30/18 04:55 MCV 83.6 fl (81.0-99.0) 12/30/18 04:55 MCH 26.8 pg (27.0-31.0) L 12/30/18 04:55 MCHC 32.1 g/dL (33.0-37.0) L 12/30/18 04:55 RDW 15.4 % (11.5-14.5) H 12/30/18 04:55 Plt Count 211 K/uL (130-400) 12/30/18 04:55 MPV 9.4 fl (7.2-11.7) 12/30/18 04:55 Neut % (Auto) 86.6 % (50.0-75.0) H 12/30/18 04:55 Lymph % (Auto) 10.7 % (20.0-40.0) L 12/30/18 04:55 Cass % (Auto) 2.6 % (0.0-10.0) 12/30/18 04:55 Eos % (Auto) 0.0 % (0.0-4.0) 12/30/18 04:55 Baso % (Auto) 0.1 % (0.0-2.0) 12/30/18 04:55 Neut # (Auto) 4.3 K/uL (1.8-7.0) 12/30/18 04:55 Lymph # (Auto) 0.5 K/uL (1.0-4.3) L 12/30/18 04:55 Cass # (Auto) 0.1 K/uL (0.0-0.8) 12/30/18 04:55 Eos # (Auto) 0.0 K/uL (0.0-0.7) 12/30/18 04:55 Baso # (Auto) 0.0 K/uL (0.0-0.2) 12/30/18 04:55 Neutrophils % (Manual) 90 % (42-75) H 12/27/18 04:50 Band Neutrophils % 2 % (0-2) 12/26/18 16:47 Lymphocytes % (Manual) 9 % (20-50) L 12/27/18 04:50 Monocytes % (Manual) 1 % (0-10) 12/27/18 04:50 Platelet Estimate Normal (NORMAL) 12/27/18 04:50 Hypochromasia (manual) Slight 12/27/18 04:50 Anisocytosis (manual) Slight 12/27/18 04:50 PT 10.5 Seconds (9.8-13.1) 12/26/18 19:42 INR 0.9 12/26/18 19:42 APTT 33.7 Seconds (25.6-37.1) 12/26/18 19:42 pCO2 45 mm/Hg (35-45) 12/29/18 04:48 pO2 152 mm/Hg (80-100) H 12/29/18 04:48 HCO3 28.1 mmol/L (21-28) H 12/29/18 04:48 ABG pH 7.42 (7.35-7.45) 12/29/18 04:48 ABG Total CO2 30.6 mmol/L (22-28) H 12/29/18 04:48 ABG O2 Saturation 100.1 % (95-98) H 12/29/18 04:48 ABG O2 Content 17.7 ML/dL (15-23) 12/29/18 04:48 ABG Base Excess 4.0 mmol/L (-2.0-3.0) H 12/29/18 04:48 ABG Hemoglobin 12.7 g/dL (11.7-17.4) 12/29/18 04:48 ABG Carboxyhemoglobin 1.5 % (0.5-1.5) 12/29/18 04:48 POC ABG HHb (Measured) -0.1 % (0.0-5.0) L 12/29/18 04:48 ABG Methemoglobin 1.3 % (0.0-3.0) 12/29/18 04:48 ABG O2 Capacity 17.7 mL/dL (16-24) 12/29/18 04:48 Quinn Test Yes 12/29/18 04:48 ABG Potassium 4.1 mmol/L (3.6-5.2) 12/27/18 05:44 A-a O2 Difference 148.0 mm/Hg 12/29/18 04:48 Hgb O2 Saturation 97.4 % (95.0-98.0) 12/29/18 04:48 Sodium 138.0 mmol/L (132-148) 12/27/18 05:44 Chloride 107.0 mmol/L (98-107) 12/27/18 05:44 Glucose 224 mg/dL (65-105) H 12/27/18 05:44 Lactate 1.9 mmol/L (0.7-2.1) 12/27/18 05:44 Liter Flow 20 12/29/18 04:48 Vent Mode High flow lpm 12/29/18 04:48 FiO2 50.0 % 12/29/18 04:48 Sodium 136 mmol/l (132-148) 12/30/18 04:55 Potassium 4.3 MMOL/L (3.6-5.0) 12/30/18 04:55 Chloride 99 mmol/L (98-107) 12/30/18 04:55 Carbon Dioxide 29 mmol/L (22-30) 12/30/18 04:55 Anion Gap 12 (10-20) 12/30/18 04:55 BUN 22 mg/dl (7-17) H 12/30/18 04:55 Creatinine 0.8 mg/dl (0.7-1.2) 12/30/18 04:55 Est GFR ( Amer) > 60 12/30/18 04:55 Est GFR (Non-Af Amer) > 60 12/30/18 04:55 POC Glucose (mg/dL) 355 mg/dL (65-110) H 01/01/19 16:16 Random Glucose 247 mg/dL (65-105) H 12/30/18 04:55 Calcium 9.1 mg/dL (8.4-10.2) 12/30/18 04:55 Magnesium Cancelled 12/26/18 16:47 Total Bilirubin 0.3 mg/dl (0.2-1.3) 12/30/18 04:55 AST 27 U/L (14-36) 12/30/18 04:55 ALT 48 U/L (9-52) 12/30/18 04:55 Alkaline Phosphatase 68 U/L (38-126) 12/30/18 04:55 Troponin I 0.0310 ng/mL (0.00-0.120) 12/26/18 16:47 NT-Pro-B Natriuret Pep 451 pg/ml (0-900) 12/26/18 16:47 Total Protein 6.7 G/DL (6.3-8.2) 12/30/18 04:55 Albumin 3.3 g/dL (3.5-5.0) L D 12/30/18 04:55 Globulin 3.4 gm/dL (2.2-3.9) 12/30/18 04:55 Albumin/Globulin Ratio 1.0 (1.0-2.1) 12/30/18 04:55 Procalcitonin < 0.05 NG/ML (0.19-0.49) L 12/27/18 04:50 Arterial Blood Potassium 4.1 mmol/L (3.6-5.2) 12/27/18 05:44 Influenza Typ A,B (EIA) Negative for flu a/b (NEGATIVE) 12/26/18 18:20 Ur L.pneumophila Ag Negative (NEGATIVE) 12/29/18 04:00 Mycoplasma pneumon IgG 2.67 (<=0.90) H 12/28/18 12:09 Mycoplasma pneumon IgM 29 U/mL (<770) 12/28/18 12:09 - Hospital Course Hospital Course: This is an 83 y/o female admitted for increasing cough and SOB while on antibiotics for a dx of pneumonia. She was readmitted for pneumonia and asthma. She was started on IV antibiotics and solumedrol and neb tx Dr Hickman was called and evaluated and adjusted meds She responded very well. Her Metformin was increased to 1000 bid She was started on phys therapy and was discharged to TCU for further medical tx and phys therapy. Discharge Exam - Head Exam Head Exam: ATRAUMATIC, NORMAL INSPECTION, NORMOCEPHALIC - Eye Exam Eye Exam: Normal appearance - Respiratory Exam Respiratory Exam: Decreased Breath Sounds - Cardiovascular Exam Cardiovascular Exam: REGULAR RHYTHM - GI/Abdominal Exam GI & Abdominal Exam: Normal Bowel Sounds Discharge Plan - Discharge Medications Prescriptions: cefTRIAXone 1 gm [Rocephin 1 gram IVPB] 1 gm IVPB DAILY #5 bag Azithromycin 500MG/NS 250ml [Zithromax 500mg in NS] 500 mg IV DAILY #5 bag - Follow Up Plan Condition: FAIR Disposition: TRANSF TO SNF Instructions: High Blood Pressure (DC), Respiratory Distress Syndrome, Adult (DC) Additional Instructions: discharged to subacute TCU Referrals: Jose Paige MD [Family Provider] -
--- NOTE | 2019-01-04 10:03 | PQF ---
PROVIDER RESPONSE TEXT: Chf not a diagnosis for this patient REVIEWER QUERY TEXT: CHF Acuity and Type Congestive Heart Failure is documented in the Medical Record. Please document the type and acuity (in cludes probable or suspected) Such as: Type: -- Systolic -- Diastolic -- Combined -- Other, please specify Acuity: -- Acute -- Chronic -- Acute on chronic -- Other, please specify Also please document the underlying cause of the CHF (includes probable or suspected) The patient's Clinical Indicators include: documentation in record of CHF w/ HTN. Can you please clarify the type of CHF if known. Query created by: Monica Clancy on 01/03/2019 9:32 AM Electronically signed by: Jose Paige MD 01/03/2019 2:14 PM
--- NOTE | 2019-01-04 10:03 | PQF ---
PROVIDER RESPONSE TEXT: Bronchopneumonia REVIEWER QUERY TEXT: Pneumonia Specificity Pneumonia is documented in the Medical Record. Please specify the type of pneumonia and the causative organism (includes probable or suspected) Such as: Type: -- Aspiration pneumonia (please also specify the aspirate) - (please specify cause) - Please indicate if the aspiration is postprocedure -- Bacterial (please document suspected or probable organism) -- Bronchopneumonia (please document suspected or probable organism) -- Interstitial pneumonia -- Organizing pneumonia / BOOP -- Pneumonia with influenza, amy flu, or H1N1 flu -- RSV -- Tuberculosis, pulmonary -- Viral -- Other, please specify The patient's Clinical Indicators include: Per consult of 12/26 Dr Pruitt documents - " multifocal Bronchopneumonia probably Cryptogenic organizin g Pneumonia". Please confirm if Dx. of Cryptogenic Organizing Pneumonia was ruled in. Query created by: Monica Clancy on 01/03/2019 9:30 AM Electronically signed by: Jose Paige MD 01/03/2019 2:14 PM
== END 2019-01-01 15:30 | DRG 193 ==
LOC: H.ER 15:07 → H.ERHOLD 18:03 → H.ICU/CCU 23:31 → H.TEL 12-27 18:18
PROVIDERS: ADMIT Family Medicine; ATTEND Family Medicine
PROC: 3E0F73Z Introduction of Anti-inflammatory into Respiratory Tract, Via Natural or Artificial Opening (ICD-10-PCS; principal; 2018-12-26)
PROC: 3E0F7GC Introduction of Other Therapeutic Substance into Respiratory Tract, Via Natural or Artificial Opening (ICD-10-PCS; 2018-12-26)
DX: J18.0 Bronchopneumonia, unspecified organism (principal); J96.01 Acute respiratory failure with hypoxia; J45.901 Unspecified asthma with (acute) exacerbation; Z68.41 Body mass index [BMI] 40.0-44.9, adult; I16.0 Hypertensive urgency; E11.65 Type 2 diabetes mellitus with hyperglycemia; I87.2 Venous insufficiency (chronic) (peripheral); I10 Essential (primary) hypertension; E78.5 Hyperlipidemia, unspecified; E78.00 Pure hypercholesterolemia, unspecified; E66.9 Obesity, unspecified; Z91.14 Patient's other noncompliance with medication regimen; Z77.22 Contact with and (suspected) exposure to environmental tobacco smoke (acute) (chronic); Z87.01 Personal history of pneumonia (recurrent); Z79.84 Long term (current) use of oral hypoglycemic drugs; Z87.891 Personal history of nicotine dependence; Z88.6 Allergy status to analgesic agent

== ENCOUNTER 2019-01-01 14:47 | Inpatient (IN) | payer MEDICARE ==
[2019-01-01 15:32] VITALS: BMI 42.7
[2019-01-01] MEDS ORDERED: Albuterol 0.083% Inhal Sol (2.5 mg/3 mL) UD INH PRN (16:46)
[2019-01-01] MEDS: Insulin Lispro (humaLOG) 100 Units/ml Inj SC SCH ×2 (18:12→21:58)
[2019-01-01] MEDS: Albuterol 0.083% Inhal Sol (2.5 mg/3 mL) UD INH SCH ×2 (19:39→23:27)
[2019-01-01] MEDS: MethylPREDNISolone 40 mg Vial IVP SCH (21:57)
[2019-01-01] MEDS ORDERED: Insulin Lispro (humaLOG) 100 Units/ml Inj SC SCH (22:00)
[2019-01-02] MEDS: Albuterol 0.083% Inhal Sol (2.5 mg/3 mL) UD INH SCH ×5 (04:09→19:18)
[2019-01-02] MEDS: Insulin Lispro (humaLOG) 100 Units/ml Inj SC SCH ×4 (06:57→21:17)
[2019-01-02] MEDS: diltiaZEM 120 mg/24 Hours CD Cap PO SCH (09:16)
[2019-01-02] MEDS: Enoxaparin 40 mg Syringe SC SCH (09:18)
[2019-01-02] MEDS: MethylPREDNISolone 40 mg Vial IVP SCH (09:19)
--- NOTE | 2019-01-02 09:20 | CP.PCM.CON ---
History of Present Illness - History of Present Illness History of Present Illness: 83 YR OLD FEMALE WHO IS TRANSFERRED TO [facility] FOLLOWING ADMISSION FOR RESPIRATORY FAILURE,COPD EXAC AND PNEUMONIA.SHE IS STILL COUGHING AND FEELS WEAK.DENIES CHEST PAINS AND SOB HAS GRADUALLY IMPROVED Past Patient History - Infectious Disease Hx of Infectious Diseases: None - Past Medical History & Family History Past Medical History?: Yes - Past Social History Smoking Status: Never Smoked - CARDIAC Hx Hypercholesterolemia: Yes (noncompliant w/meds) Hx Hypertension: Yes - PULMONARY Hx Asthma: Yes Hx Bronchitis: Yes Hx Pneumonia: Yes - NEUROLOGICAL Hx Neurological Disorder: No - HEENT Hx HEENT Problems: No - RENAL Hx Chronic Kidney Disease: No - ENDOCRINE/METABOLIC Hx Endocrine Disorders: Yes Hx Diabetes Mellitus Type 2: Yes - HEMATOLOGICAL/ONCOLOGICAL Hx Human Immunodeficiency Virus (HIV): No - INTEGUMENTARY Hx Dermatological Problems: No - MUSCULOSKELETAL/RHEUMATOLOGICAL Hx Musculoskeletal Disorders: No Hx Falls: No - GASTROINTESTINAL Hx Gastrointestinal Disorders: No - GENITOURINARY/GYNECOLOGICAL Hx Genitourinary Disorders: No - PSYCHIATRIC Hx Psychophysiologic Disorder: No Hx Substance Use: No - SURGICAL HISTORY Hx Appendectomy: Yes Hx Tonsillectomy: Yes - ANESTHESIA Hx Anesthesia: Yes Hx Anesthesia Reactions: No Hx Malignant Hyperthermia: No Meds Allergies/Adverse Reactions: Allergies Allergy/AdvReac Type Severity Reaction Status Date / Time codeine Allergy RASH Verified 01/01/19 15:31 - Medications Medications: Current Medications Acetaminophen (Tylenol 325mg Tab) 650 mg PO Q4 PRN PRN Reason: Pain, Mild (1-3) Albuterol Sulfate (Albuterol 0.083% Inhal Merle (2.5 Mg/3 Ml) Ud) 2.5 mg INH RQ2 PRN PRN Reason: Shortness of Breath Albuterol Sulfate (Albuterol 0.083% Inhal Merle (2.5 Mg/3 Ml) Ud) 2.5 mg INH RQ4 [facility] Last Admin: 01/02/19 07:59 Dose: 2.5 mg Diltiazem HCl (Cardizem Cd) 120 mg PO DAILY [facility] OF [facility] Enoxaparin Sodium (Lovenox) 40 mg SC DAILY [facility]; Protocol Furosemide (Lasix) 40 mg PO DAILY [facility] Ceftriaxone Sodium 1 gm/ (Sodium Chloride) 100 mls @ 100 mls/hr IVPB DAILY@0500 [facility]; Protocol Last Admin: 01/02/19 04:51 Dose: 100 mls/hr Azithromycin 500 mg/ Sodium (Chloride) 250 mls @ 250 mls/hr IVPB DAILY@1700 [facility]; Protocol Insulin Human Lispro (Humalog) 0 units SC ACHS [facility]; Protocol Last Admin: 01/02/19 06:57 Dose: 6 units Metformin HCl (Glucophage) 1,000 mg PO BIDWM [facility] Last Admin: 01/01/19 18:13 Dose: 1,000 mg Methylprednisolone (Solu-Medrol) 40 mg IVP DAILY [facility] Metoprolol Tartrate (Lopressor) 50 mg PO Q12 [facility] Last Admin: 01/01/19 21:57 Dose: 50 mg Montelukast Sodium (Singulair) 10 mg PO DAILY [facility] Promethazine HCl/Dextromethorphan (Phenergan Dm Syrup) 10 ml PO Q6 PRN PRN Reason: Cough Sitagliptin Phosphate (Januvia) 100 mg PO DAILY [facility] Physical Exam - Constitutional Appears: Well, Chronically Ill - Head Exam Head Exam: ATRAUMATIC, NORMAL INSPECTION, NORMOCEPHALIC - Eye Exam Eye Exam: EOMI, Normal appearance, PERRL Pupil Exam: NORMAL ACCOMODATION, PERRL - ENT Exam ENT Exam: Mucous Membranes Moist, Normal Exam - Neck Exam Neck exam: Positive for: Normal Inspection - Respiratory Exam Respiratory Exam: Decreased Breath Sounds, Prolonged Expiratory Phase, Rales, NORMAL BREATHING PATTERN - Cardiovascular Exam Cardiovascular Exam: REGULAR RHYTHM - GI/Abdominal Exam GI & Abdominal Exam: Normal Bowel Sounds, Soft. absent: Tenderness - Rectal Exam Rectal Exam: NORMAL INSPECTION - Extremities Exam Extremities exam: Positive for: pedal edema - Back Exam Back exam: NORMAL INSPECTION - Neurological Exam Neurological exam: Alert, CN II-XII Intact, Normal Gait, Oriented x3, Reflexes Normal - Psychiatric Exam Psychiatric exam: Normal Affect, Normal Mood - Skin Skin Exam: Dry, Intact, Normal Color, Warm Results - Vital Signs Recent Vital Signs: Last Vital Signs Temp 98.0 F 01/02/19 07:50 Pulse 60 01/02/19 07:50 Resp 20 01/02/19 07:50 BP 141/76 01/02/19 07:50 Pulse Ox 100 01/02/19 07:50 - Labs Labs: Laboratory Results - last 24 hr 01/01/19 01/01/19 01/02/19 21:06 21:06 05:34 POC Glucose (mg/dL) 193 H 193 H 273 H Assessment & Plan - Assessment and Plan (Free Text) Assessment: RESP FAILURE--IMPROVING PNEUMONIA--IMPROVING DM HTN Plan: SEE ORDERS WILL CONTINUE TO FOLLOW - Date & Time Date: 01/02/19 Time: 09:21
[2019-01-02] MEDS ORDERED: cefTRIAXone IV 1 gm in Dextros 50 ML BAG IVPB SCH (17:00)
[2019-01-02] MEDS: Azithromycin 500 MG in Sodium Chloride 0.9% 250 ML IVPB SCH (17:18)
[2019-01-03] MEDS: Albuterol 0.083% Inhal Sol (2.5 mg/3 mL) UD INH SCH ×7 (00:17→23:42)
[2019-01-03] MEDS: Insulin Lispro (humaLOG) 100 Units/ml Inj SC SCH ×4 (06:30→21:18)
[2019-01-03 07:01] LABS: BASO % 0.1 % (0.0-2.0); HEMOGLOBIN 12.2 g/dL (12.0-16.0); LYMPH # 0.9 K/uL (1.0-4.3); MEAN CELL VOLUME 83.2 fl (81.0-99.0); MEAN CORPUSCULAR HGB CONC 32.5 g/dL (33.0-37.0); MEAN PLATELET VOLUME 9.3 fl (7.2-11.7); MONO # 0.5 K/uL (0.0-0.8); MONO % 4.9 % (0.0-10.0); NEUT # 8.1 K/uL (1.8-7.0); PLATELET COUNT 214 K/uL (130-400); RBC 4.52 Mil/uL (3.80-5.20); RED CELL DISTRIBUTION WIDTH 15.7 % (11.5-14.5); WHITE BLOOD COUNT 9.5 K/uL (4.8-10.8)
[2019-01-03 07:06] LABS: ALB/GLOB RATIO 0.9 (1.0-2.1); ALBUMIN 2.9 g/dL (3.5-5.0); ALT/SGPT 33 U/L (9-52); AST/SGOT 11 U/L (14-36); BLOOD UREA NITROGEN 22 mg/dl (7-17); CALCIUM 8.7 mg/dL (8.4-10.2); GFR NON-AFRICAN AMERICAN > 60
[2019-01-03 08:22] LABS: LYMPHOCYTE 8 % (20-50); MONOCYTE 4 % (0-10); NEUTROPHIL 88 % (42-75); PLATELET ESTIMATE NORMAL (NORMAL); TOTAL CELLS COUNTED 100
[2019-01-03 08:23] LABS: ANISOCYTOSIS SLIGHT; HYPOCHROMIC SLIGHT; OVALOCYTES MODERATE
[2019-01-03 08:24] LABS: LARGE PLATELETS PRESENT
[2019-01-03] MEDS: Promethazine DM 12.5 mg-30 mg/10 ml Syrup PO PRN ×2 (08:25→21:15)
[2019-01-03] MEDS: Enoxaparin 40 mg Syringe SC SCH (08:26)
[2019-01-03] MEDS: diltiaZEM 120 mg/24 Hours CD Cap PO SCH (08:27)
[2019-01-03] MEDS: MethylPREDNISolone 40 mg Vial IVP SCH (08:29)
--- NOTE | 2019-01-03 08:37 | CP.PCM.PN ---
Subjective - Date & Time of Evaluation Date of Evaluation: 01/03/19 Time of Evaluation: 08:37 - Subjective Subjective: COUGHING UP YELLOW SPUTUM FEELS WEAK SOB IMPROVING NO CHEST PAINS Objective - Vital Signs/Intake and Output Vital Signs (last 24 hours): Temp Pulse Resp BP Pulse Ox 98.3 F 72 18 153/80 H 98 01/03/19 08:09 01/03/19 08:28 01/03/19 08:09 01/03/19 08:28 01/03/19 08:09 - Medications Medications: Current Medications Acetaminophen (Tylenol 325mg Tab) 650 mg PO Q4 PRN PRN Reason: Pain, Mild (1-3) Albuterol Sulfate (Albuterol 0.083% Inhal Merle (2.5 Mg/3 Ml) Ud) 2.5 mg INH RQ2 PRN PRN Reason: Shortness of Breath Albuterol Sulfate (Albuterol 0.083% Inhal Merle (2.5 Mg/3 Ml) Ud) 2.5 mg INH RQ4 [facility] Last Admin: 01/03/19 08:19 Dose: 2.5 mg Diltiazem HCl (Cardizem Cd) 120 mg PO DAILY [facility] Last Admin: 01/03/19 08:27 Dose: 120 mg Enoxaparin Sodium (Lovenox) 40 mg SC DAILY [facility]; Protocol Last Admin: 01/03/19 08:26 Dose: 40 mg Furosemide (Lasix) 40 mg PO DAILY [facility] Last Admin: 01/03/19 08:27 Dose: 40 mg Ceftriaxone Sodium 1 gm/ (Sodium Chloride) 100 mls @ 100 mls/hr IVPB DAILY@0500 [facility]; Protocol Last Admin: 01/03/19 04:41 Dose: 100 mls/hr Azithromycin 500 mg/ Sodium (Chloride) 250 mls @ 250 mls/hr IVPB DAILY@1700 [facility]; Protocol Last Admin: 01/02/19 17:18 Dose: 250 mls/hr Insulin Human Lispro (Humalog) 0 units SC ACHS [facility]; Protocol Last Admin: 01/03/19 06:30 Dose: 2 units Metformin HCl (Glucophage) 1,000 mg PO BIDWM [facility] Last Admin: 01/03/19 08:26 Dose: 1,000 mg Methylprednisolone (Solu-Medrol) 40 mg IVP DAILY [facility] Last Admin: 01/03/19 08:29 Dose: 40 mg Metoprolol Tartrate (Lopressor) 50 mg PO Q12 [facility] Last Admin: 01/03/19 08:28 Dose: 50 mg Montelukast Sodium (Singulair) 10 mg PO DAILY [facility] Last Admin: 01/03/19 08:26 Dose: 10 mg Promethazine HCl/Dextromethorphan (Phenergan Dm Syrup) 10 ml PO Q6 PRN PRN Reason: Cough Last Admin: 01/03/19 08:25 Dose: 10 ml Sitagliptin Phosphate (Januvia) 100 mg PO DAILY [facility] Last Admin: 01/03/19 08:26 Dose: 100 mg - Labs Labs: 01/03/19 06:45 01/03/19 06:45 - Constitutional Appears: Chronically Ill - Head Exam Head Exam: ATRAUMATIC, NORMAL INSPECTION, NORMOCEPHALIC - Eye Exam Eye Exam: EOMI, Normal appearance, PERRL Pupil Exam: NORMAL ACCOMODATION, PERRL - ENT Exam ENT Exam: Mucous Membranes Moist, Normal Exam - Neck Exam Neck Exam: Full ROM, Normal Inspection. absent: Lymphadenopathy - Respiratory Exam Respiratory Exam: Decreased Breath Sounds, Prolonged Expiratory Phase, Rales, NORMAL BREATHING PATTERN - Cardiovascular Exam Cardiovascular Exam: REGULAR RHYTHM, +S1, +S2. absent: Murmur - GI/Abdominal Exam GI & Abdominal Exam: Soft, Normal Bowel Sounds. absent: Tenderness - Rectal Exam Rectal Exam: NORMAL INSPECTION - Extremities Exam Extremities Exam: Full ROM, Normal Capillary Refill, Pedal Edema. absent: Joint Swelling - Back Exam Back Exam: NORMAL INSPECTION - Neurological Exam Neurological Exam: Alert, Awake, CN II-XII Intact, Normal Gait, Oriented x3 - Psychiatric Exam Psychiatric exam: Normal Affect, Normal Mood - Skin Skin Exam: Dry, Intact, Normal Color, Warm Assessment and Plan - Assessment and Plan (Free Text) Assessment: RESP FAILURE--IMPROVING HTN PNEUMONIA DECONDITIONING Plan: CONTINUE CURRENT RX REPEAT CXR
[2019-01-03] MEDS: Azithromycin 500 MG in Sodium Chloride 0.9% 250 ML IVPB SCH (16:10)
--- NOTE | 2019-01-03 18:23 | CP.PCM.PN ---
Subjective - Date & Time of Evaluation Date of Evaluation: 01/03/19 Time of Evaluation: 11:00 - Subjective Subjective: patient seen and examined at bedside. Interim events noted No complaints offered at this time though occasional sob denies cp/fever/chills. available diagnostic data reviewed Review of Systems All systems: reviewed and no additional remarkable complaints except mentioned above Objective Vital Signs Stable - Constitutional Appears: Non-toxic, No Acute Distress Head Exam: NORMAL INSPECTION Eye Exam: Normal appearance Respiratory Exam: NORMAL BREATHING PATTERN Cardiovascular Exam: +S1, +S2 GI & Abdominal Exam: Soft Neurological Exam: Alert, Awake Psychiatric exam: Normal Affect, Normal Mood Skin Exam: Normal Color, Warm Assessment and Plan monitor vitals monitor labs Cont meds Cont therapy consultants appreciated input pending repeat CXR rest of plan as ordered Objective - Vital Signs/Intake and Output Vital Signs (last 24 hours): Temp Pulse Resp BP Pulse Ox 98.2 F 70 20 145/74 94 L 01/03/19 15:35 01/03/19 15:35 01/03/19 15:35 01/03/19 15:35 01/03/19 15:35 - Medications Medications: Current Medications Acetaminophen (Tylenol 325mg Tab) 650 mg PO Q4 PRN PRN Reason: Pain, Mild (1-3) Albuterol Sulfate (Albuterol 0.083% Inhal Merle (2.5 Mg/3 Ml) Ud) 2.5 mg INH RQ2 PRN PRN Reason: Shortness of Breath Albuterol Sulfate (Albuterol 0.083% Inhal Merle (2.5 Mg/3 Ml) Ud) 2.5 mg INH RQ4 [facility] Last Admin: 01/03/19 15:43 Dose: 2.5 mg Diltiazem HCl (Cardizem Cd) 120 mg PO DAILY [facility] Last Admin: 01/03/19 08:27 Dose: 120 mg Enoxaparin Sodium (Lovenox) 40 mg SC DAILY [facility]; Protocol Last Admin: 01/03/19 08:26 Dose: 40 mg Furosemide (Lasix) 40 mg PO DAILY [facility] Last Admin: 01/03/19 08:27 Dose: 40 mg Ceftriaxone Sodium 1 gm/ (Sodium Chloride) 100 mls @ 100 mls/hr IVPB DAILY@0500 [facility]; Protocol Last Admin: 01/03/19 04:41 Dose: 100 mls/hr Azithromycin 500 mg/ Sodium (Chloride) 250 mls @ 250 mls/hr IVPB DAILY@1700 [facility]; Protocol Last Admin: 01/03/19 16:10 Dose: 250 mls/hr Insulin Human Lispro (Humalog) 0 units SC ACHS [facility]; Protocol Last Admin: 01/03/19 16:12 Dose: 4 units Metformin HCl (Glucophage) 1,000 mg PO BIDWM [facility] Last Admin: 01/03/19 16:11 Dose: 1,000 mg Methylprednisolone (Solu-Medrol) 40 mg IVP DAILY [facility] Last Admin: 01/03/19 08:29 Dose: 40 mg Metoprolol Tartrate (Lopressor) 50 mg PO Q12 [facility] Last Admin: 01/03/19 08:28 Dose: 50 mg Montelukast Sodium (Singulair) 10 mg PO DAILY [facility] Last Admin: 01/03/19 08:26 Dose: 10 mg Promethazine HCl/Dextromethorphan (Phenergan Dm Syrup) 10 ml PO Q6 PRN PRN Reason: Cough Last Admin: 01/03/19 08:25 Dose: 10 ml Sitagliptin Phosphate (Januvia) 100 mg PO DAILY [facility] Last Admin: 01/03/19 08:26 Dose: 100 mg - Labs Labs: 01/03/19 06:45 01/03/19 06:45
--- NOTE | 2019-01-03 23:11 | CP.PCM.HP ---
History of Present Illness - History of Present Illness History of Present Illness: HPI: 83 y/o female with a PMH of Asthma, bronchitis, and PNA is currently being admitted to TCU for transitional care S/P hospitalization for Respiratory Failure. At present, she reports an improvement in her breathing, however she states still feeling weak. PMH: Asthma, Bronchitis, Diabetes (type II), HTN, Hypercholesterolemia (noncompliant w/meds), Pneumonia. Surgical History: Appendectomy, Tonsillectomy. Allergies: Codeine. Present on Admission - Present on Admission Any Indicators Present on Admission: Yes History of Uncontrolled Diabetes: Yes Review of Systems - Review of Systems All systems: reviewed and no additional remarkable complaints except (occasional cough and weakness.) Past Patient History - Infectious Disease Hx of Infectious Diseases: None - Past Medical History & Family History Past Medical History?: Yes - Past Social History Smoking Status: Never Smoked - CARDIAC Hx Hypercholesterolemia: Yes (noncompliant w/meds) Hx Hypertension: Yes - PULMONARY Hx Asthma: Yes Hx Bronchitis: Yes Hx Pneumonia: Yes - NEUROLOGICAL Hx Neurological Disorder: No - HEENT Hx HEENT Problems: No - RENAL Hx Chronic Kidney Disease: No - ENDOCRINE/METABOLIC Hx Endocrine Disorders: Yes Hx Diabetes Mellitus Type 2: Yes - HEMATOLOGICAL/ONCOLOGICAL Hx Human Immunodeficiency Virus (HIV): No - INTEGUMENTARY Hx Dermatological Problems: No - MUSCULOSKELETAL/RHEUMATOLOGICAL Hx Musculoskeletal Disorders: No Hx Falls: No - GASTROINTESTINAL Hx Gastrointestinal Disorders: No - GENITOURINARY/GYNECOLOGICAL Hx Genitourinary Disorders: No - PSYCHIATRIC Hx Psychophysiologic Disorder: No Hx Substance Use: No - SURGICAL HISTORY Hx Appendectomy: Yes Hx Tonsillectomy: Yes - ANESTHESIA Hx Anesthesia: Yes Hx Anesthesia Reactions: No Hx Malignant Hyperthermia: No Meds Allergies/Adverse Reactions: Allergies Allergy/AdvReac Type Severity Reaction Status Date / Time codeine Allergy RASH Verified 01/01/19 15:31 Physical Exam - Constitutional Appears: Well - Head Exam Head Exam: ATRAUMATIC, NORMAL INSPECTION, NORMOCEPHALIC - Eye Exam Eye Exam: EOMI, Normal appearance, PERRL Pupil Exam: NORMAL ACCOMODATION, PERRL - ENT Exam ENT Exam: Mucous Membranes Moist, Normal Exam - Neck Exam Neck exam: Positive for: Normal Inspection - Respiratory Exam Respiratory Exam: Decreased Breath Sounds, Rales - Cardiovascular Exam Cardiovascular Exam: REGULAR RHYTHM, +S1, +S2 - GI/Abdominal Exam GI & Abdominal Exam: Normal Bowel Sounds, Soft - Extremities Exam Extremities exam: Positive for: normal capillary refill, normal inspection - Back Exam Back exam: NORMAL INSPECTION - Neurological Exam Neurological exam: Alert, CN II-XII Intact, Normal Gait, Oriented x3 - Psychiatric Exam Psychiatric exam: Normal Affect, Normal Mood - Skin Skin Exam: Dry, Normal Color, Warm Results - Vital Signs Recent Vital Signs: Last Vital Signs Temp 97.8 F 01/03/19 19:21 Pulse 72 01/03/19 21:15 Resp 20 01/03/19 19:21 BP 123/72 01/03/19 21:15 Pulse Ox 95 01/03/19 19:21 - Labs Result Diagrams: 01/03/19 06:45 01/03/19 06:45 Labs: Laboratory Results - last 24 hr 01/03/19 01/03/19 01/03/19 05:01 06:45 06:45 WBC 9.5 D RBC 4.52 Hgb 12.2 Hct 37.6 MCV 83.2 MCH 27.0 MCHC 32.5 L RDW 15.7 H Plt Count 214 MPV 9.3 Neut % (Auto) 86.0 H Lymph % (Auto) 9.0 L Gonzales % (Auto) 4.9 Eos % (Auto) 0.0 Baso % (Auto) 0.1 Neut # (Auto) 8.1 H Lymph # (Auto) 0.9 L Gonzales # (Auto) 0.5 Eos # (Auto) 0.0 Baso # (Auto) 0.0 Neutrophils % (Manual) 88 H Lymphocytes % (Manual) 8 L Monocytes % (Manual) 4 Platelet Estimate Normal Large Platelets Present Hypochromasia (manual) Slight Anisocytosis (manual) Slight Macrocytosis (manual) Slight Ovalocytes Moderate Sodium 135 Potassium 4.7 Chloride 99 Carbon Dioxide 31 H Anion Gap 10 BUN 22 H Creatinine 0.6 L Est GFR ( Amer) > 60 Est GFR (Non-Af Amer) > 60 POC Glucose (mg/dL) 170 H Random Glucose 169 H Calcium 8.7 Total Bilirubin 0.2 AST 11 L D ALT 33 Alkaline Phosphatase 57 Total Protein 6.0 L Albumin 2.9 L Globulin 3.1 Albumin/Globulin Ratio 0.9 L 01/03/19 01/03/19 01/03/19 10:33 15:42 20:44 WBC RBC Hgb Hct MCV MCH MCHC RDW Plt Count MPV Neut % (Auto) Lymph % (Auto) Gonzales % (Auto) Eos % (Auto) Baso % (Auto) Neut # (Auto) Lymph # (Auto) Gonzales # (Auto) Eos # (Auto) Baso # (Auto) Neutrophils % (Manual) Lymphocytes % (Manual) Monocytes % (Manual) Platelet Estimate Large Platelets Hypochromasia (manual) Anisocytosis (manual) Macrocytosis (manual) Ovalocytes Sodium Potassium Chloride Carbon Dioxide Anion Gap BUN Creatinine Est GFR ( Amer) Est GFR (Non-Af Amer) POC Glucose (mg/dL) 282 H 230 H 271 H Random Glucose Calcium Total Bilirubin AST ALT Alkaline Phosphatase Total Protein Albumin Globulin Albumin/Globulin Ratio Assessment & Plan (1) Pneumonia Assessment and Plan: 1.) Pneumonia -Respiratory status improving. -Steroids are being tapered off- currently on solumedrol 40 mg daily. -Duoneb tx's for shortness of breath. -On Zithromax and Rocephin antibiotics. -Serial CXR's. -continue current tx. -consults input appreciated. Status: Acute
[2019-01-04] MEDS: Albuterol 0.083% Inhal Sol (2.5 mg/3 mL) UD INH SCH ×5 (04:58→20:14)
[2019-01-04] MEDS: Insulin Lispro (humaLOG) 100 Units/ml Inj SC SCH ×4 (06:32→21:59)
--- NOTE | 2019-01-04 08:04 | RAD ---
Date of service: 01/03/2019 HISTORY: PNEUMONIA COMPARISON: Frontal chest radiograph 12/30/2018. TECHNIQUE: Chest PA and lateral FINDINGS: LUNGS: Improved aeration is identified bilaterally with diminished bilateral basilar linear atelectasis noted. Limited residual noted right base with thickening of the minor fissure versus trace effusion again evident. PLEURA: Trace bilateral pleural effusions are not excluded. No pneumothorax bilaterally. CARDIOVASCULAR: Calcific atherosclerotic changes are seen related to the thoracic aorta. Cardiomegaly stable. No pulmonary vascular congestion. OSSEOUS STRUCTURES: No significant abnormalities. VISUALIZED UPPER ABDOMEN: Normal. OTHER FINDINGS: None. IMPRESSION: Stable cardiomegaly. Limited residual linear atelectasis medial right base. Trace bilateral pleural effusions questioned.
[2019-01-04] MEDS: Enoxaparin 40 mg Syringe SC SCH (08:45)
[2019-01-04] MEDS: diltiaZEM 120 mg/24 Hours CD Cap PO SCH (08:47)
[2019-01-04] MEDS: MethylPREDNISolone 40 mg Vial IVP SCH (08:48)
[2019-01-04] MEDS: Promethazine DM 12.5 mg-30 mg/10 ml Syrup PO PRN ×2 (08:56→22:01)
[2019-01-04] MEDS: Azithromycin 500 MG in Sodium Chloride 0.9% 250 ML IVPB SCH (17:08)
[2019-01-05] MEDS: Albuterol 0.083% Inhal Sol (2.5 mg/3 mL) UD INH SCH ×6 (00:16→19:43)
[2019-01-05] MEDS: Insulin Lispro (humaLOG) 100 Units/ml Inj SC SCH ×4 (06:36→22:01)
[2019-01-05] MEDS: Enoxaparin 40 mg Syringe SC SCH (09:09)
[2019-01-05] MEDS: diltiaZEM 120 mg/24 Hours CD Cap PO SCH (09:10)
[2019-01-05] MEDS: MethylPREDNISolone 40 mg Vial IVP SCH (09:11)
--- NOTE | 2019-01-05 10:49 | CP.PCM.PN ---
Subjective - Date & Time of Evaluation Date of Evaluation: 01/05/19 Time of Evaluation: 10:48 - Subjective Subjective: SOB IMPROVED COUGH PERSISTS VSS PEDAL EDEMA PRESENT Objective - Vital Signs/Intake and Output Vital Signs (last 24 hours): Temp Pulse Resp BP Pulse Ox 98.1 F 75 20 136/79 94 L 01/05/19 10:11 01/05/19 10:11 01/05/19 10:11 01/05/19 10:11 01/05/19 10:11 - Medications Medications: Current Medications Acetaminophen (Tylenol 325mg Tab) 650 mg PO Q4 PRN PRN Reason: Pain, Mild (1-3) Albuterol Sulfate (Albuterol 0.083% Inhal Merle (2.5 Mg/3 Ml) Ud) 2.5 mg INH RQ2 PRN PRN Reason: Shortness of Breath Albuterol Sulfate (Albuterol 0.083% Inhal Merle (2.5 Mg/3 Ml) Ud) 2.5 mg INH RQ4 [facility] Last Admin: 01/05/19 07:06 Dose: 2.5 mg Diltiazem HCl (Cardizem Cd) 120 mg PO DAILY [facility] Last Admin: 01/05/19 09:10 Dose: 120 mg Enoxaparin Sodium (Lovenox) 40 mg SC DAILY [facility]; Protocol Last Admin: 01/05/19 09:09 Dose: 40 mg Furosemide (Lasix) 40 mg PO DAILY [facility] Last Admin: 01/05/19 09:10 Dose: 40 mg Ceftriaxone Sodium 1 gm/ (Sodium Chloride) 100 mls @ 100 mls/hr IVPB DAILY@0500 [facility]; Protocol Last Admin: 01/05/19 05:03 Dose: 100 mls/hr Azithromycin 500 mg/ Sodium (Chloride) 250 mls @ 250 mls/hr IVPB DAILY@1700 [facility]; Protocol Last Admin: 01/04/19 17:08 Dose: 250 mls/hr Insulin Human Lispro (Humalog) 0 units SC ACHS [facility]; Protocol Last Admin: 01/05/19 06:36 Dose: Not Given Metformin HCl (Glucophage) 1,000 mg PO BIDWM [facility] Last Admin: 01/05/19 09:10 Dose: 1,000 mg Methylprednisolone (Solu-Medrol) 40 mg IVP DAILY [facility] Last Admin: 01/05/19 09:11 Dose: 40 mg Metoprolol Tartrate (Lopressor) 50 mg PO Q12 [facility] Last Admin: 01/05/19 09:11 Dose: 50 mg Montelukast Sodium (Singulair) 10 mg PO DAILY [facility] Last Admin: 01/05/19 09:14 Dose: 10 mg Promethazine HCl/Dextromethorphan (Phenergan Dm Syrup) 10 ml PO Q6 PRN PRN Reason: Cough Last Admin: 01/04/19 22:01 Dose: 10 ml Sitagliptin Phosphate (Januvia) 100 mg PO DAILY [facility] Last Admin: 01/05/19 09:10 Dose: 100 mg - Labs Labs: 01/03/19 06:45 01/03/19 06:45 - Constitutional Appears: No Acute Distress - Head Exam Head Exam: ATRAUMATIC, NORMAL INSPECTION, NORMOCEPHALIC - Eye Exam Eye Exam: EOMI, Normal appearance, PERRL Pupil Exam: NORMAL ACCOMODATION, PERRL - ENT Exam ENT Exam: Mucous Membranes Moist, Normal Exam - Neck Exam Neck Exam: Full ROM, Normal Inspection. absent: Lymphadenopathy - Respiratory Exam Respiratory Exam: Prolonged Expiratory Phase, Wheezes, NORMAL BREATHING PATTERN - Cardiovascular Exam Cardiovascular Exam: REGULAR RHYTHM, +S1, +S2. absent: Murmur - GI/Abdominal Exam GI & Abdominal Exam: Soft, Normal Bowel Sounds. absent: Tenderness - Rectal Exam Rectal Exam: NORMAL INSPECTION - Extremities Exam Extremities Exam: Full ROM, Normal Capillary Refill, Pedal Edema. absent: Joint Swelling - Back Exam Back Exam: NORMAL INSPECTION - Neurological Exam Neurological Exam: Abnormal Gait, Alert, Awake, CN II-XII Intact, Oriented x3 - Psychiatric Exam Psychiatric exam: Normal Affect, Normal Mood - Skin Skin Exam: Dry, Intact, Normal Color, Warm Assessment and Plan - Assessment and Plan (Free Text) Assessment: RESP FAILURE IMPROVED PEDAL EDEMA Plan: CONTINUE CURRENT RX
[2019-01-05] MEDS: Azithromycin 500 MG in Sodium Chloride 0.9% 250 ML IVPB SCH (17:18)
[2019-01-05] MEDS: Promethazine DM 12.5 mg-30 mg/10 ml Syrup PO PRN (17:22)
[2019-01-06] MEDS: Albuterol 0.083% Inhal Sol (2.5 mg/3 mL) UD INH SCH ×6 (05:37→19:15)
[2019-01-06] MEDS: Insulin Lispro (humaLOG) 100 Units/ml Inj SC SCH ×3 (07:19→17:01)
[2019-01-06] MEDS: Enoxaparin 40 mg Syringe SC SCH (08:27)
[2019-01-06] MEDS: Promethazine DM 12.5 mg-30 mg/10 ml Syrup PO PRN ×2 (08:29→21:55)
[2019-01-06] MEDS: diltiaZEM 120 mg/24 Hours CD Cap PO SCH (08:30)
[2019-01-06] MEDS: MethylPREDNISolone 40 mg Vial IVP SCH (08:31)
--- NOTE | 2019-01-06 10:55 | CP.PCM.PN ---
Subjective - Date & Time of Evaluation Date of Evaluation: 01/06/19 Time of Evaluation: 10:55 - Subjective Subjective: STILL COUGHING BUT LESS NO NEW CLINICAL FINDINGS CXR REVIEWED RESPIRATORY FAILURE IMPROVED WILL D/C IV STEROIDS BEGIN PO PREDNISONE Objective - Vital Signs/Intake and Output Vital Signs (last 24 hours): Temp Pulse Resp BP Pulse Ox 97.8 F 66 20 113/70 95 01/06/19 08:33 01/06/19 08:33 01/06/19 08:33 01/06/19 08:33 01/06/19 08:33 - Medications Medications: Current Medications Acetaminophen (Tylenol 325mg Tab) 650 mg PO Q4 PRN PRN Reason: Pain, Mild (1-3) Albuterol Sulfate (Albuterol 0.083% Inhal Merle (2.5 Mg/3 Ml) Ud) 2.5 mg INH RQ2 PRN PRN Reason: Shortness of Breath Albuterol Sulfate (Albuterol 0.083% Inhal Merle (2.5 Mg/3 Ml) Ud) 2.5 mg INH RQ4 [facility] Last Admin: 01/06/19 07:33 Dose: 2.5 mg Diltiazem HCl (Cardizem Cd) 120 mg PO DAILY [facility] Last Admin: 01/06/19 08:30 Dose: 120 mg Enoxaparin Sodium (Lovenox) 40 mg SC DAILY [facility]; Protocol Last Admin: 01/06/19 08:27 Dose: 40 mg Furosemide (Lasix) 40 mg PO DAILY [facility] Last Admin: 01/06/19 08:30 Dose: 40 mg Ceftriaxone Sodium 1 gm/ (Sodium Chloride) 100 mls @ 100 mls/hr IVPB DAILY@0500 [facility]; Protocol Last Admin: 01/06/19 05:37 Dose: 100 mls/hr Azithromycin 500 mg/ Sodium (Chloride) 250 mls @ 250 mls/hr IVPB DAILY@1700 [facility]; Protocol Last Admin: 01/05/19 17:18 Dose: 250 mls/hr Insulin Human Lispro (Humalog) 0 units SC ACHS [facility]; Protocol Last Admin: 01/06/19 07:19 Dose: 1 units Metformin HCl (Glucophage) 1,000 mg PO BIDWM [facility] Last Admin: 01/06/19 08:29 Dose: 1,000 mg Metoprolol Tartrate (Lopressor) 50 mg PO Q12 [facility] Last Admin: 01/06/19 08:28 Dose: 50 mg Montelukast Sodium (Singulair) 10 mg PO DAILY [facility] Last Admin: 01/06/19 08:29 Dose: 10 mg Promethazine HCl/Dextromethorphan (Phenergan Dm Syrup) 10 ml PO Q6 PRN PRN Reason: Cough Last Admin: 01/06/19 08:29 Dose: 10 ml Sitagliptin Phosphate (Januvia) 100 mg PO DAILY [facility] Last Admin: 01/06/19 08:29 Dose: 100 mg - Labs Labs: 01/03/19 06:45 01/03/19 06:45
[2019-01-06 20:09] VITALS: RESP 20
--- NOTE | 2019-01-06 21:56 | CP.PCM.PN ---
Subjective - Date & Time of Evaluation Date of Evaluation: 01/04/19 Time of Evaluation: 11:00 - Subjective Subjective: Patient has been doing well Has no chest pain or SOB Noted elevated FBS Patient is still on high dose of steroids. Objective - Vital Signs/Intake and Output Vital Signs (last 24 hours): Temp Pulse Resp BP Pulse Ox 98.8 F 85 20 150/71 95 01/06/19 20:08 01/06/19 20:08 01/06/19 20:08 01/06/19 20:08 01/06/19 20:08 - Medications Medications: Current Medications Acetaminophen (Tylenol 325mg Tab) 650 mg PO Q4 PRN PRN Reason: Pain, Mild (1-3) Albuterol Sulfate (Albuterol 0.083% Inhal Merle (2.5 Mg/3 Ml) Ud) 2.5 mg INH RQ2 PRN PRN Reason: Shortness of Breath Albuterol Sulfate (Albuterol 0.083% Inhal Merle (2.5 Mg/3 Ml) Ud) 2.5 mg INH RQ4 [facility] Last Admin: 01/06/19 19:15 Dose: 2.5 mg Diltiazem HCl (Cardizem Cd) 120 mg PO DAILY [facility] Last Admin: 01/06/19 08:30 Dose: 120 mg Enoxaparin Sodium (Lovenox) 40 mg SC DAILY [facility]; Protocol Last Admin: 01/06/19 08:27 Dose: 40 mg Furosemide (Lasix) 40 mg PO DAILY [facility] Last Admin: 01/06/19 08:30 Dose: 40 mg Insulin Human Lispro (Humalog) 0 units SC [facility]; Protocol Last Admin: 01/06/19 17:01 Dose: Not Given Metformin HCl (Glucophage) 1,000 mg PO BIDWM [facility] Last Admin: 01/06/19 17:01 Dose: 1,000 mg Metoprolol Tartrate (Lopressor) 50 mg PO Q12 [facility] Last Admin: 01/06/19 08:28 Dose: 50 mg Montelukast Sodium (Singulair) 10 mg PO DAILY [facility] Last Admin: 01/06/19 08:29 Dose: 10 mg Prednisone (Prednisone Tab) 20 mg PO DAILY [facility] Last Admin: 01/06/19 12:18 Dose: Not Given Promethazine HCl/Dextromethorphan (Phenergan Dm Syrup) 10 ml PO Q6 PRN PRN Reason: Cough Last Admin: 01/06/19 08:29 Dose: 10 ml Sitagliptin Phosphate (Januvia) 100 mg PO DAILY [facility] Last Admin: 01/06/19 08:29 Dose: 100 mg - Labs Labs: 01/03/19 06:45 01/03/19 06:45 - Head Exam Head Exam: NORMAL INSPECTION - Eye Exam Eye Exam: Normal appearance - ENT Exam ENT Exam: Mucous Membranes Moist - Respiratory Exam Respiratory Exam: Decreased Breath Sounds - Cardiovascular Exam Cardiovascular Exam: REGULAR RHYTHM - GI/Abdominal Exam GI & Abdominal Exam: Normal Bowel Sounds Assessment and Plan (1) Asthma Status: Acute (2) Chr obstructive pulmonary disease w/ acute lower respiratory infxn Status: Acute (3) Diabetes mellitus type 2 in obese Status: Acute (4) Hypertension Status: Acute - Assessment and Plan (Free Text) Plan: Cont meds Cont tx Cont PT
--- NOTE | 2019-01-06 21:59 | CP.PCM.PN ---
Subjective - Date & Time of Evaluation Date of Evaluation: 01/05/19 Time of Evaluation: 11:00 - Subjective Subjective: Patient has been stable Still with elevated FBS On high dose steroids Has no fever Doing well with PT. Objective - Vital Signs/Intake and Output Vital Signs (last 24 hours): Temp Pulse Resp BP Pulse Ox 98.8 F 85 20 150/71 95 01/06/19 20:08 01/06/19 20:08 01/06/19 20:08 01/06/19 21:54 01/06/19 20:08 - Medications Medications: Current Medications Acetaminophen (Tylenol 325mg Tab) 650 mg PO Q4 PRN PRN Reason: Pain, Mild (1-3) Albuterol Sulfate (Albuterol 0.083% Inhal Merle (2.5 Mg/3 Ml) Ud) 2.5 mg INH RQ2 PRN PRN Reason: Shortness of Breath Albuterol Sulfate (Albuterol 0.083% Inhal Merle (2.5 Mg/3 Ml) Ud) 2.5 mg INH RQ4 [facility] Last Admin: 01/06/19 19:15 Dose: 2.5 mg Diltiazem HCl (Cardizem Cd) 120 mg PO DAILY [facility] Last Admin: 01/06/19 08:30 Dose: 120 mg Enoxaparin Sodium (Lovenox) 40 mg SC DAILY [facility]; Protocol Last Admin: 01/06/19 08:27 Dose: 40 mg Furosemide (Lasix) 40 mg PO DAILY [facility] Last Admin: 01/06/19 08:30 Dose: 40 mg Insulin Human Lispro (Humalog) 0 units SC [facility]; Protocol Last Admin: 01/06/19 17:01 Dose: Not Given Metformin HCl (Glucophage) 1,000 mg PO BIDWM [facility] Last Admin: 01/06/19 17:01 Dose: 1,000 mg Metoprolol Tartrate (Lopressor) 50 mg PO Q12 [facility] Last Admin: 01/06/19 21:54 Dose: 50 mg Montelukast Sodium (Singulair) 10 mg PO DAILY [facility] Last Admin: 01/06/19 08:29 Dose: 10 mg Prednisone (Prednisone Tab) 20 mg PO DAILY [facility] Last Admin: 01/06/19 12:18 Dose: Not Given Promethazine HCl/Dextromethorphan (Phenergan Dm Syrup) 10 ml PO Q6 PRN PRN Reason: Cough Last Admin: 01/06/19 21:55 Dose: 10 ml Sitagliptin Phosphate (Januvia) 100 mg PO DAILY [facility] Last Admin: 01/06/19 08:29 Dose: 100 mg - Labs Labs: 01/03/19 06:45 01/03/19 06:45 - Head Exam Head Exam: NORMAL INSPECTION - Eye Exam Eye Exam: Normal appearance - ENT Exam ENT Exam: Mucous Membranes Moist - Respiratory Exam Respiratory Exam: Clear to Ausculation Bilateral - Cardiovascular Exam Cardiovascular Exam: REGULAR RHYTHM - GI/Abdominal Exam GI & Abdominal Exam: Normal Bowel Sounds - Neurological Exam Neurological Exam: Awake Assessment and Plan (1) Asthma Status: Acute (2) Chr obstructive pulmonary disease w/ acute lower respiratory infxn Status: Acute (3) Diabetes mellitus type 2 in obese Status: Acute (4) Hypertension Status: Acute - Assessment and Plan (Free Text) Plan: Cont meds Cont tx Cont PT neb tx taper off steroids
--- NOTE | 2019-01-06 22:13 | CP.PCM.PN ---
Subjective - Date & Time of Evaluation Date of Evaluation: 01/06/19 Time of Evaluation: 15:00 - Subjective Subjective: Patient remains well Has no chest pain or SOB Has no fever. Objective - Vital Signs/Intake and Output Vital Signs (last 24 hours): Temp Pulse Resp BP Pulse Ox 98.8 F 85 20 150/71 95 01/06/19 20:08 01/06/19 20:08 01/06/19 20:08 01/06/19 21:54 01/06/19 20:08 - Medications Medications: Current Medications Acetaminophen (Tylenol 325mg Tab) 650 mg PO Q4 PRN PRN Reason: Pain, Mild (1-3) Albuterol Sulfate (Albuterol 0.083% Inhal Merle (2.5 Mg/3 Ml) Ud) 2.5 mg INH RQ2 PRN PRN Reason: Shortness of Breath Albuterol Sulfate (Albuterol 0.083% Inhal Merle (2.5 Mg/3 Ml) Ud) 2.5 mg INH RQ4 [facility] Last Admin: 01/06/19 19:15 Dose: 2.5 mg Diltiazem HCl (Cardizem Cd) 120 mg PO DAILY [facility] Last Admin: 01/06/19 08:30 Dose: 120 mg Enoxaparin Sodium (Lovenox) 40 mg SC DAILY [facility]; Protocol Last Admin: 01/06/19 08:27 Dose: 40 mg Furosemide (Lasix) 40 mg PO DAILY [facility] Last Admin: 01/06/19 08:30 Dose: 40 mg Insulin Human Lispro (Humalog) 0 units SC [facility]; Protocol Last Admin: 01/06/19 17:01 Dose: Not Given Metformin HCl (Glucophage) 1,000 mg PO BIDWM [facility] Last Admin: 01/06/19 17:01 Dose: 1,000 mg Metoprolol Tartrate (Lopressor) 50 mg PO Q12 [facility] Last Admin: 01/06/19 21:54 Dose: 50 mg Montelukast Sodium (Singulair) 10 mg PO DAILY [facility] Last Admin: 01/06/19 08:29 Dose: 10 mg Prednisone (Prednisone Tab) 20 mg PO DAILY [facility] Last Admin: 01/06/19 12:18 Dose: Not Given Promethazine HCl/Dextromethorphan (Phenergan Dm Syrup) 10 ml PO Q6 PRN PRN Reason: Cough Last Admin: 01/06/19 21:55 Dose: 10 ml Sitagliptin Phosphate (Januvia) 100 mg PO DAILY [facility] Last Admin: 01/06/19 08:29 Dose: 100 mg - Labs Labs: 01/03/19 06:45 01/03/19 06:45 - Head Exam Head Exam: NORMAL INSPECTION - Eye Exam Eye Exam: Normal appearance - ENT Exam ENT Exam: Mucous Membranes Moist - Respiratory Exam Respiratory Exam: Clear to Ausculation Bilateral - Cardiovascular Exam Cardiovascular Exam: REGULAR RHYTHM - GI/Abdominal Exam GI & Abdominal Exam: Normal Bowel Sounds - Neurological Exam Neurological Exam: Awake - Psychiatric Exam Psychiatric exam: Normal Mood Assessment and Plan (1) Asthma Status: Acute (2) Chr obstructive pulmonary disease w/ acute lower respiratory infxn Status: Acute (3) Diabetes mellitus type 2 in obese Status: Acute (4) Hypertension Status: Acute - Assessment and Plan (Free Text) Plan: Cont meds Cont tx Cont PT Neb tx adjust DM meds
[2019-01-07] MEDS: Albuterol 0.083% Inhal Sol (2.5 mg/3 mL) UD INH SCH ×6 (00:14→19:17)
[2019-01-07] MEDS: Insulin Lispro (humaLOG) 100 Units/ml Inj SC SCH ×5 (02:38→22:17)
[2019-01-07] MEDS: Enoxaparin 40 mg Syringe SC SCH (08:50)
[2019-01-07] MEDS: diltiaZEM 120 mg/24 Hours CD Cap PO SCH (08:51)
[2019-01-07] MEDS: Promethazine DM 12.5 mg-30 mg/10 ml Syrup PO PRN ×2 (08:51→22:22)
--- NOTE | 2019-01-07 18:58 | CP.PCM.PN ---
Subjective - Date & Time of Evaluation Date of Evaluation: 01/07/19 Time of Evaluation: 11:00 - Subjective Subjective: patient seen and examined during therapy Interim events noted No complaints offered at this time denies cp/fever/chills. available diagnostic data reviewed Review of Systems All systems: reviewed and no additional remarkable complaints except mentioned above Objective Vital Signs Stable - Constitutional Appears: Non-toxic, No Acute Distress Head Exam: NORMAL INSPECTION Eye Exam: Normal appearance Respiratory Exam: NORMAL BREATHING PATTERN Cardiovascular Exam: +S1, +S2 GI & Abdominal Exam: Soft Neurological Exam: Alert, Awake Psychiatric exam: Normal Affect, Normal Mood Skin Exam: Normal Color, Warm Assessment and Plan monitor vitals monitor labs Cont meds Cont therapy consultants appreciated input rest of plan as ordered Objective - Vital Signs/Intake and Output Vital Signs (last 24 hours): Temp Pulse Resp BP Pulse Ox 98.4 F 77 20 131/77 95 01/07/19 17:07 01/07/19 17:07 01/07/19 17:07 01/07/19 17:07 01/07/19 17:07 - Medications Medications: Current Medications Acetaminophen (Tylenol 325mg Tab) 650 mg PO Q4 PRN PRN Reason: Pain, Mild (1-3) Albuterol Sulfate (Albuterol 0.083% Inhal Merle (2.5 Mg/3 Ml) Ud) 2.5 mg INH RQ2 PRN PRN Reason: Shortness of Breath Albuterol Sulfate (Albuterol 0.083% Inhal Merle (2.5 Mg/3 Ml) Ud) 2.5 mg INH RQ4 [facility] Last Admin: 01/07/19 15:35 Dose: Not Given Diltiazem HCl (Cardizem Cd) 120 mg PO DAILY [facility] Last Admin: 01/07/19 08:51 Dose: 120 mg Enoxaparin Sodium (Lovenox) 40 mg SC DAILY [facility]; Protocol Last Admin: 01/07/19 08:50 Dose: 40 mg Furosemide (Lasix) 40 mg PO DAILY [facility] Last Admin: 01/07/19 08:50 Dose: 40 mg Insulin Human Lispro (Humalog) 0 units SC ACHS [facility]; Protocol Last Admin: 01/07/19 16:39 Dose: Not Given Metformin HCl (Glucophage) 1,000 mg PO BIDWM [facility] Last Admin: 01/07/19 16:38 Dose: 1,000 mg Metoprolol Tartrate (Lopressor) 50 mg PO Q12 [facility] Last Admin: 01/07/19 08:50 Dose: 50 mg Montelukast Sodium (Singulair) 10 mg PO DAILY [facility] Last Admin: 01/07/19 10:08 Dose: 10 mg Prednisone (Prednisone Tab) 20 mg PO DAILY [facility] Last Admin: 01/07/19 08:52 Dose: 20 mg Promethazine HCl/Dextromethorphan (Phenergan Dm Syrup) 10 ml PO Q6 PRN PRN Reason: Cough Last Admin: 01/07/19 08:51 Dose: 10 ml Sitagliptin Phosphate (Januvia) 100 mg PO DAILY [facility] Last Admin: 01/07/19 08:51 Dose: 100 mg - Labs Labs: 01/03/19 06:45 01/03/19 06:45
[2019-01-08] MEDS: Albuterol 0.083% Inhal Sol (2.5 mg/3 mL) UD INH SCH ×5 (00:25→16:01)
[2019-01-08] MEDS: Insulin Lispro (humaLOG) 100 Units/ml Inj SC SCH ×3 (07:09→16:47)
[2019-01-08] MEDS: diltiaZEM 120 mg/24 Hours CD Cap PO SCH (10:03)
[2019-01-08] MEDS: Enoxaparin 40 mg Syringe SC SCH (10:03)
[2019-01-08 16:26] VITALS: BP 103/65; PULSE 74; TEMP 98.5; O2SAT 95
== END 2019-01-08 18:40 | disposition home or self-care (01) | DRG 193 ==
LOC: H.TCU 15:44
PROVIDERS: ADMIT Family Medicine; ATTEND Family Medicine
PROC: F08Z1FZ Dressing Techniques Treatment using Assistive, Adaptive, Supportive or Protective Equipment (ICD-10-PCS; principal; 2019-01-01)
PROC: F08Z4FZ Home Management Treatment using Assistive, Adaptive, Supportive or Protective Equipment (ICD-10-PCS; 2019-01-01)
PROC: F07Z9FZ Gait Training/Functional Ambulation Treatment using Assistive, Adaptive, Supportive or Protective Equipment (ICD-10-PCS; 2019-01-01)
PROC: F07L6GZ Therapeutic Exercise Treatment of Musculoskeletal System - Lower Back / Lower Extremity using Aerobic Endurance and Conditioning Equipment (ICD-10-PCS; 2019-01-01)
PROC: 5A0955Z Assistance with Respiratory Ventilation, Greater than 96 Consecutive Hours (ICD-10-PCS; 2019-01-01)
DX: J18.9 Pneumonia, unspecified organism (principal); J96.90 Respiratory failure, unspecified, unspecified whether with hypoxia or hypercapnia; J44.0 Chronic obstructive pulmonary disease with (acute) lower respiratory infection; Z68.41 Body mass index [BMI] 40.0-44.9, adult; E11.9 Type 2 diabetes mellitus without complications; I10 Essential (primary) hypertension; E78.00 Pure hypercholesterolemia, unspecified; Z91.14 Patient's other noncompliance with medication regimen; E66.9 Obesity, unspecified; Z88.6 Allergy status to analgesic agent